=== PATIENT | male | born 1955 | race Caucasian/White ===

== ENCOUNTER 2017-07-15 14:30 | Inpatient (IN) | payer BC, MEDICAID, SELFPAY ==
[2017-07-15] VITALS (12 sets, daily range): BP systolic 128–152; BP diastolic 91–118
[~2017-07-15] VITALS: Ht 177.8 cm; Wt 80.9 kg
[2017-07-15] MEDS ORDERED: DOXY100C PO (14:40)
[2017-07-15] MEDS ORDERED: methylPREDNISolone INJ 125 MG/2 ML VIAL (J2930) IV ONE (15:00)
[2017-07-15] MEDS ORDERED: IPRATROPIUM 0.5MG/ALBUTEROL 2.5MG INH SOL UD 3ML (DUONEB)(J7620) NEB ONE (15:00)
[2017-07-15] MEDS ORDERED: NS 500 ML IV ONE (15:00)
[2017-07-15] MEDS ORDERED: ALBUTEROL SULFATE 2.5 MG/0.5 ML INH NEB SOLN INH ONE (15:00)
[2017-07-15 15:07] LABS: BASO % 0.2 % (0.0-1.0); EOS % 0.1 % (0.0-3.0); IMMATURE GRANULOCYTE % 0.4 % (0-0); LYMPH # 2.3 10^3/uL (1.5-4.5); LYMPH % 15.6 % (24.0-44.0); MEAN CORPUSCULAR HEMOGLOBIN 27.5 pg (27.0-33.0); MEAN CORPUSCULAR HGB CONC 31.7 g/dl (32.0-36.5); MEAN CORPUSCULAR VOLUME 86.8 fl (80.0-96.0); MONO % 7.1 % (0.0-5.0); NEUTROPHILS # 11.3 10^3/uL (1.8-7.7); NEUTROPHILS % 76.6 % (36.0-66.0); PLATELET COUNT, AUTOMATED 224 10^3/uL (150-450); RED CELL DISTRIBUTION WIDTH 19.7 % (11.5-14.5); WHITE BLOOD COUNT 14.7 10^3/uL (4.0-10.0)
[2017-07-15 15:31] LABS: ALBUMIN 3.3 GM/DL (3.2-5.2); ALBUMIN/GLOBULIN RATIO 0.89 (1.00-1.93); BILIRUBIN,DIRECT 1.3 MG/DL (0.0-0.2); BILIRUBIN,TOTAL 3.3 MG/DL (0.2-1.0); CALCIUM LEVEL 9.5 MG/DL (8.8-10.2); CREATININE FOR GFR 1.9 MG/DL (0.70-1.30); GLOMERULAR FILTRATION RATE 38.3 (>49); THYROXINE (T4) 6.1 UG/DL (4.5-12.0)
[2017-07-15 15:58] LABS: ABG BASE EXCESS -3.7 (-2.0-2.0); ABG HCO3 18.3 MEQ/L (22.0-26.0); ABG PARTIAL PRESSURE CO2 26.9 mmHg (35.0-45.0); ABG PARTIAL PRESSURE O2 85.4 mmHg (75.0-100.0); ABG STANDARD HCO3 21.5 MEQ/L (22.0-26.0); ABG TOTAL CO2 19.1 MEQ/L (23.0-31.0); ABG pH (ARTERIAL) 7.451 UNITS (7.350-7.450)
[2017-07-15] MEDS ORDERED: FUROSEMIDE 40 MG/4 ML VIAL (J1940) IV ONE ×2 (16:00→20:30)
[2017-07-15 16:02] LABS: POTASSIUM SERUM 5.2 MEQ/L (3.5-5.1)
[2017-07-15] MEDS ORDERED: ASPIRIN 81 MG CHEW TABLET PO ONE (16:15)
[2017-07-15] MEDS ORDERED: BISACODYL 5 MG TAB PO PRN (17:00)
[2017-07-15] MEDS ORDERED: ONDANSETRON 4MG/2ML VIAL (J2405) IV PRN (17:00)
[2017-07-15] MEDS ORDERED: ALBUTEROL SULFATE 2.5 MG/0.5 ML INH NEB SOLN NEB PRN (17:30)
[2017-07-15 17:32] LABS: INR 1.48
[2017-07-15] MEDS ORDERED: DIGOXIN INJ 0.5 MG/2 ML AMP (J1160) IV ONE ×2 (18:00→21:00)
--- NOTE | 2017-07-15 19:10 | REPUSA ---
CLINICAL HISTORY: Acute kidney injury. Family with history of polycystic kidney disease. Right upp er quadrant pain. Abnormal LFTs. TECHNIQUE: Realtime sonographic images were obtained in multiple projections. COMMENTS: The liver is mildly coarse without evidence of mass or defect. There is no intra or extrahepatic layla iary ductal dilatation. The common bile duct measures 3.8 mm. The gallbladder is physiologically di stended without evidence of calculi. The gallbladder wall is not thickened measures 1.6 mm and there is no pericholecystic fluid. There is no abdominal ascites. The abdominal aorta is not visualized. There was limited visualization of the pancreas due to bowel gas and patient body habitus. The splee n is of uniform echo texture and does not appear enlarged measures 9.6 cm. The right kidney measures 10.2 x 4.7 x 4.6 cm and the left kidney measures 10.8 x 4.7 x 5.7 cm. Both kidneys are free of hydr onephrosis. Bilateral renal echogenic linear foci, questionable calcified vessels. There is left pleural effusion seen. IMPRESSION: 1. The liver is mildly coarse, please exclude hepatocellular disease clinically. 2. Bilateral renal echogenic linear foci, questionable calcified vessels. 3. There is left pleural effusion seen.
[2017-07-15 19:33] LABS: MAGNESIUM LEVEL 2.3 MG/DL (1.8-2.4)
[2017-07-15] MEDS: SENOKOT S TAB PO SCH (20:08)
[2017-07-15] MEDS ORDERED: METOPROLOL 5 MG/5 ML VIAL IV SCH (20:30)
[2017-07-15] MEDS: METOPROLOL 5 MG/5 ML VIAL IV SCH ×3 (20:39→21:03)
[2017-07-15] MEDS: IPRATROPIUM 0.5MG/ALBUTEROL 2.5MG INH SOL UD 3ML (DUONEB)(J7620) NEB SCH (21:52)
[2017-07-15] MEDS ORDERED: diltiaZEM 125 MG in NS 100 ML IV SCH (23:00)
[2017-07-15] MEDS: FUROSEMIDE 40 MG/4 ML VIAL (J1940) IV SCH (23:25)
[2017-07-15] MEDS: DIGOXIN INJ 0.5 MG/2 ML AMP (J1160) IV SCH (23:26)
[2017-07-16] VITALS (26 sets, daily range): BP systolic 104–142; BP diastolic 56–93
[2017-07-16] MEDS ORDERED: FUROSEMIDE 20 MG/2 ML VIAL (J1940) IV ONE (02:00)
[2017-07-16] MEDS ORDERED: IPRATROPIUM 0.5MG/ALBUTEROL 2.5MG INH SOL UD 3ML (DUONEB)(J7620) NEB ONE (02:00)
[2017-07-16] MEDS: DIGOXIN INJ 0.5 MG/2 ML AMP (J1160) IV SCH (05:32)
[2017-07-16 06:31] LABS: BASO % 0.1 % (0.0-1.0); IMMATURE GRANULOCYTE % 0.5 % (0-0); LYMPH % 5.8 % (24.0-44.0); MEAN CORPUSCULAR HEMOGLOBIN 28.1 pg (27.0-33.0); MEAN CORPUSCULAR HGB CONC 33.8 g/dl (32.0-36.5); MONO # 1.1 10^3/uL (0.0-0.8); MONO % 6.2 % (0.0-5.0); NEUTROPHILS # 15.2 10^3/uL (1.8-7.7); NEUTROPHILS % 87.4 % (36.0-66.0); PLATELET COUNT, AUTOMATED 193 10^3/uL (150-450); WHITE BLOOD COUNT 17.3 10^3/uL (4.0-10.0)
--- NOTE | 2017-07-16 06:33 | ECGEPIP ---
Stationary ECG Study [facility] - ED Test Date: 2017-07-15 Pat Name: JOHN HERNANDEZ Department: Room: - Gender: M [employer] Dean: isaac : 1955 Requested By: Jarrod Cuenca Order Number: [id number] Reading MD: Jarrod Cuenca Measurements Intervals [place] Rate: 136 P: NM: 0 QRS: 88 QRSD: 97 T: 0 QT: 285 QTc: 430 Interpretive Statements ATRIAL FLUTTER/TACHYCARDIA WITH RAPID VENTRICULAR RESPONSE POSSIBLE ANTERIOR MYOCARDIAL INFARCTION, PROBABLY OLD ABNORMAL RHYTHM ECG CLINICALLY CORRELATE 11/28/13 RATE INCREASED POSSIBLE RHYTHM CHANGE Electronically Signed On 07-16-2017 6:32:59 EST by Jarrod Cuenca
[2017-07-16 06:45] LABS: ABG BASE EXCESS 9.3 (-2.0-2.0); ABG HCO3 31.9 MEQ/L (22.0-26.0); ABG PARTIAL PRESSURE CO2 36.6 mmHg (35.0-45.0); ABG PARTIAL PRESSURE O2 58.8 mmHg (75.0-100.0); ABG STANDARD HCO3 32.8 MEQ/L (22.0-26.0); ABG pH (ARTERIAL) 7.558 UNITS (7.350-7.450)
[2017-07-16 07:15] LABS: ALBUMIN 2.9 GM/DL (3.2-5.2); ALBUMIN/GLOBULIN RATIO 0.85 (1.00-1.93); BILIRUBIN,TOTAL 3.5 MG/DL (0.2-1.0); CALCIUM LEVEL 9.4 MG/DL (8.8-10.2); CREATININE FOR GFR 1.63 MG/DL (0.70-1.30); DIGOXIN LEVEL 2.2 NG/ML (0.5-2.0); GLOMERULAR FILTRATION RATE 45.7 (>49); TOTAL PROTEIN 6.3 GM/DL (6.4-8.2)
[2017-07-16] MEDS: IPRATROPIUM 0.5MG/ALBUTEROL 2.5MG INH SOL UD 3ML (DUONEB)(J7620) NEB SCH ×2 (07:29→15:18)
[2017-07-16 07:51] LABS: POTASSIUM SERUM 3.8 MEQ/L (3.5-5.1)
[2017-07-16] MEDS: ENOXAPARIN 30 MG/0.3 ML SYR (J1650) SC SCH (08:04)
[2017-07-16] MEDS: SENOKOT S TAB PO SCH ×2 (08:04→20:39)
[2017-07-16] MEDS: FUROSEMIDE 40 MG/4 ML VIAL (J1940) IV SCH ×3 (08:04→23:12)
--- NOTE | 2017-07-16 08:44 | IPNPDOC ---
Text Note Date of Service The patient was seen on 07/16/17. NOTE Subjective: Patient seen and examined at bedside. States he is feeling much better. Questioned further about yesterday's events, he states he blacked out at around 3pm while at an [employer] machine. Woke up to find himself on the floor. States this has not happened before, and denied any prodromal symptoms. States he did not eat breakfast or lunch that day. Also states he was recently seen at an urgent care facility, and diagnosed with pneumonia, treated with oral antibiotics. Currently denies any new medical complaints. Objective: General: NAD, lying comfortably in bed, somewhat disheveled HEENT: NC/AT, EOMI Lungs: mild coarse breath sounds bilaterally R>L Heart: +S1S2, irregularly irregular Abd: soft, NT, +BS Ext: trace edema Neuro: no gross focal deficits Psych: AAOx3 A/P: 62 yo male for syncopal episode, found to be in respiratory distress with atrial tachy rhythm. Please note H&P not available at this time limiting assessment and plan. 1. acute hypoxic respiratory failure - likely secondary to CHF - continue IV diuresis - echocardiogram pending - daily weights, I/O's 2. Afib/flutter - digoxin - BB if needed - echo pending - currently is rate controlled - d/w cardiology - assistance appreciated - telemetry monitoring - [id number] appears to be 1 for CHF, will check A1C 3. MARTINA - likely secondary to decompensated CHF - improving with diuresis 4. Transaminitis - improving with diuresis - likely hepatic congestion 5. Syncope - telemetry monitoring, echocardiogram - check orthostatics 6. DVT prophylaxis - lovenox for now VS,Fishbone, I+O VS, Fishbone, I+O Laboratory Tests 07/15/17 14:55 Red Blood Count 6.51 H, Mean Corpuscular Volume 86.8, Mean Corpuscular Hemoglobin 27.5, Mean Corpuscular Hemoglobin Concent 31.7 L, Red Cell Distribution Width 19.7 H, Neutrophils (%) (Auto) 76.6 H, Lymphocytes (%) (Auto ) 15.6 L, Monocytes (%) (Auto) 7.1 H, Eosinophils (%) (Auto) 0.1, Basophils (%) (Auto) 0.2, Neutrophils # (Auto) 11.3 H, Lymphocytes # (Auto) 2.3, Monocytes # ( Auto) 1.0 H, Eosinophils # (Auto) 0.0, Basophils # (Auto) 0.0 07/16/17 05:15 Red Blood Count 6.34 H, Mean Corpuscular Volume 83.0, Mean Corpuscular Hemoglobin 28.1, Mean Corpuscular Hemoglobin Concent 33.8, Red Cell Distribution Width 19.0 H, Neutrophils (%) (Auto) 87.4 H, Lymphocytes (%) (Auto ) 5.8 L, Monocytes (%) (Auto) 6.2 H, Eosinophils (%) (Auto) 0.0, Basophils (%) ( Auto) 0.1, Neutrophils # (Auto) 15.2 H, Lymphocytes # (Auto) 1.0 L, Monocytes # (Auto) 1.1 H, Eosinophils # (Auto) 0.0, Basophils # (Auto) 0.0, Calcium Level 9.4, Aspartate Amino Transf (AST/SGOT) 91 H, Alanine Aminotransferase (ALT/SGPT ) 130 H, Total Creatine Kinase 412 H, Alkaline Phosphatase 127 H, Total Bilirubin 3.5 H, Total Protein 6.3 L, Albumin 2.9 L Vital Signs Date Time Temp Pulse Resp B/P (MAP) Pulse Ox O2 Delivery O2 Flow Rate FiO2 07/16/17 08:00 96.8 102 24 134/66 (88) 92 Nasal Cannula 8.0 I&O- Last 24 Hours up to 6 AM 07/17/17 06:00 Intake Total 240 ml Output Total 750 ml Balance -510 ml YOEL WOLFE MD Jul 16, 2017 08:44
[2017-07-16] MEDS ORDERED: DIGOXIN INJ 0.5 MG/2 ML AMP (J1160) IV STA ×2 (20:42→22:22)
[2017-07-16] MEDS ORDERED: VANCOMYCIN HCL 1,000 MG, VIAL MATE ADAPTER 1 EACH in D5W 250 ML IV SCH (21:00)
[2017-07-16] MEDS ORDERED: PIPERACILLIN/TAZOBACTAM SOD 3.375 GM in D5W 50 ML IV ONE (21:00)
[2017-07-16] MEDS ORDERED: AZITHROMYCIN 250 MG TAB PO ONE (21:00)
[2017-07-16] MEDS ORDERED: FUROSEMIDE 40 MG/4 ML VIAL (J1940) IV ONE (21:15)
[2017-07-16 21:29] LABS: ABG BASE EXCESS 14.8 (-2.0-2.0); ABG HCO3 38.6 MEQ/L (22.0-26.0); ABG PARTIAL PRESSURE CO2 42.2 mmHg (35.0-45.0); ABG PARTIAL PRESSURE O2 55.6 mmHg (75.0-100.0); ABG STANDARD HCO3 38.6 MEQ/L (22.0-26.0); ABG TOTAL CO2 39.9 MEQ/L (23.0-31.0); ABG pH (ARTERIAL) 7.579 UNITS (7.350-7.450)
[2017-07-16] MEDS ORDERED: METOPROLOL 5 MG/5 ML VIAL As Ordered ONE (21:49)
[2017-07-16] MEDS ORDERED: METOPROLOL 5 MG/5 ML VIAL IV STA (22:05)
[2017-07-16] MEDS ORDERED: FUROSEMIDE 100 MG/10 ML VIAL (J1940) IV ONE (22:30)
[2017-07-16 22:34] LABS: MEAN CORPUSCULAR HEMOGLOBIN 27.6 pg (27.0-33.0); MEAN CORPUSCULAR HGB CONC 32.8 g/dl (32.0-36.5); MEAN CORPUSCULAR VOLUME 84.2 fl (80.0-96.0); PLATELET COUNT, AUTOMATED 191 10^3/uL (150-450); WHITE BLOOD COUNT 19.1 10^3/uL (4.0-10.0)
[2017-07-16] MEDS ORDERED: ASPIRIN 325 MG TAB PO ONE (23:00)
[2017-07-16 23:11] LABS: ALBUMIN 2.7 GM/DL (3.2-5.2); ALBUMIN/GLOBULIN RATIO 0.84 (1.00-1.93); BILIRUBIN,DIRECT 1.1 MG/DL (0.0-0.2); BILIRUBIN,TOTAL 2.5 MG/DL (0.2-1.0); CALCIUM LEVEL 8.7 MG/DL (8.8-10.2); CREATININE FOR GFR 1.8 MG/DL (0.70-1.30); GLOMERULAR FILTRATION RATE 40.8 (>49); PHOSPHORUS LEVEL 3.6 MG/DL (2.5-4.9); POTASSIUM SERUM 3.2 MEQ/L (3.5-5.1); TOTAL PROTEIN 5.9 GM/DL (6.4-8.2)
[2017-07-17] VITALS (15 sets, daily range): BP systolic 98–127; BP diastolic 54–77
[2017-07-17] MEDS: IPRATROPIUM 0.5MG/ALBUTEROL 2.5MG INH SOL UD 3ML (DUONEB)(J7620) NEB SCH ×4 (00:14→19:15)
[2017-07-17] MEDS ORDERED: PIPERACILLIN/TAZOBACTAM SOD 2.25 GM in D5W 50 ML IV SCH (03:00)
[2017-07-17] MEDS ORDERED: POTASSIUM CHLORIDE 10 MEQ SR TABLET PO ONE (04:30)
[2017-07-17 04:38] LABS: BASO % 0.1 % (0.0-1.0); EOS % 0.1 % (0.0-3.0); IMMATURE GRANULOCYTE % 0.4 % (0-0); LYMPH # 2.1 10^3/uL (1.5-4.5); LYMPH % 13.2 % (24.0-44.0); MEAN CORPUSCULAR HEMOGLOBIN 27.7 pg (27.0-33.0); MEAN CORPUSCULAR HGB CONC 33.2 g/dl (32.0-36.5); MEAN CORPUSCULAR VOLUME 83.4 fl (80.0-96.0); MONO # 1.2 10^3/uL (0.0-0.8); MONO % 7.4 % (0.0-5.0); NEUTROPHILS # 12.6 10^3/uL (1.8-7.7); NEUTROPHILS % 78.8 % (36.0-66.0); PLATELET COUNT, AUTOMATED 195 10^3/uL (150-450); RED CELL DISTRIBUTION WIDTH 18.4 % (11.5-14.5)
[2017-07-17 04:57] LABS: ALBUMIN 2.7 GM/DL (3.2-5.2); ALBUMIN/GLOBULIN RATIO 0.75 (1.00-1.93); BILIRUBIN,TOTAL 2.2 MG/DL (0.2-1.0); CALCIUM LEVEL 8.8 MG/DL (8.8-10.2); CREATININE FOR GFR 1.45 MG/DL (0.70-1.30); GLOMERULAR FILTRATION RATE 52.3 (>49); MAGNESIUM LEVEL 1.9 MG/DL (1.8-2.4); POTASSIUM SERUM 3.2 MEQ/L (3.5-5.1); TOTAL PROTEIN 6.3 GM/DL (6.4-8.2)
--- NOTE | 2017-07-17 06:12 | REP ---
AP PORTABLE CHEST: 11/12/2016. Clinical history: Dyspnea, cough. Comparison: Chest x-ray 07/06/2017, portable chest 11/28/2013. Findings: AP portable chest shows much worsened vascular congestion and now with fairly extensive basilar infiltrates or alveolar edema. There are bilateral effusions left greater than right. Cardiac silhouette enlarged. Vascular redistribution. The aorta is mildly tortuous. Airway intact. Impression: 1. Cardiomegaly with vascular redistribution consistent with interstitial edema but with worsening basilar infiltrates or alveolar edema with bilateral effusions, left greater than right. Signed by Sergio Edwards MD 07/16/2017 06:31 P
--- NOTE | 2017-07-17 06:13 | REP ---
AP PORTABLE CHEST: 07/16/2017. Comparison: Portable chest 07/15/2017, two view chest 07/06/2017. Clinical history: Dyspnea. Findings: Bibasilar infiltrates and bilateral effusions left greater than right, similar on the right, worse on the left than yesterday. There is vascular redistribution. Cardiac silhouette obscured but likely enlarged. The aorta is intact. Impression: 1. Worsening bilateral infiltrates and effusion, worse on the left than yesterday. Some vascular redistribution and suspected edema. Signed by Sergio Edwards MD 07/16/2017 07:04 P
--- NOTE | 2017-07-17 06:13 | REP ---
CT CHEST WITHOUT CONTRAST: 07/16/2017. Clinical history: Head trauma. Comparison: Portable chest 07/16/2017, 07/15/2017, two-view chest 07/05/2017. Findings. Noncontrast exam performed in this patient with limited renal function. Coronal and sagittal reconstructions performed. There are bilateral pleural effusions, moderate on the left, slightly larger on the left than right side. There are consolidated areas of the right lower lobe with compressive atelectasis or infiltrate and somewhat larger in the left lower lobe. There are areas of patchy atelectasis or infiltrate in the anterior segment right upper lobe and peripheral nodule or nodular infiltrate posterior axillary line in the right upper lobe on image 17 to 24. There are also compressive atelectatic changes in the left upper lobe. Underlying fibrosis, COPD and emphysematous changes are noted. Heart is enlarged with left atrial and ventricular enlargement. I see no pericardial thickening or effusion. The aorta has calcifications but no aneurysm. There is a 10 mm node in the precarinal region. The prevascular region, AP window, right paratracheal and hilar regions show subcentimeter nodes. There is no axillary or supraclavicular mass or adenopathy. Bone windows show the sternum, manubrium, clavicles, glenohumeral joints, the right AC joint and scapula, that portion of the left scapula visible and ribs without fracture or focal lesion. Thoracic kyphosis with mild old wedging mid thoracic spine without acute compression fracture. Marginal osteophytes throughout. Posterior elements intact. The upper abdomen shows no splenomegaly or focal splenic lesion. Liver is not enlarged although it is incompletely visualized. Only a portion of the pancreas is included. Gallbladder is excluded from field of view. Adrenal glands show thickening of limbs suggesting some adrenal hyperplasia. Upper poles of kidneys intact. No hiatal hernia. Impression: 1. Cardiomegaly with moderate bilateral effusions, left larger than right. These reach the apex on both sides. There is some compressive or consolidative atelectasis or infiltrates in the bilateral lower lobes and patchy infiltrates or atelectasis in the upper lobes, right middle lobes and adjacent to the consolidated lower lobes. One area of nodular infiltrate right upper lobe peripherally should be followed. 2. No aortic aneurysm or mediastinal adenopathy of pathologic size. 3. Minor old wedging of mid thoracic vertebral bodies, mild with thoracic kyphosis. No compression deformity or acute bony finding. 4. Upper abdomen without acute finding. Signed by Sergio Edwards MD 07/16/2017 07:04 P
--- NOTE | 2017-07-17 06:13 | REP ---
CT BRAIN WITHOUT CONTRAST: 07/16/2017. Clinical history: Head trauma. Comparison: 11/28/2013. Findings: Soft tissue and bone windows were reviewed for each slice level. Lateral ventricles are midline, symmetric and proportionate to the mild cerebral atrophy. This is unchanged. The third and fourth ventricles are unremarkable. Basal ganglia were symmetric. I see no significant white matter change. Cortical stripe shows mild atrophy but no vascular territory infarct, hemorrhage, mass or mass effect. No extra-axial fluid collections noted. Brainstem intact. Cerebellum shows mild atrophy. There is a gareth cisterna magna in the posterior fossa as an anatomic normal variant. Mastoids are intact. Visualized sinuses show some minimal mucosal thickening in the right and left maxillary antra. The skull base and calvarium are intact. There are some vascular calcifications in the carotid siphons. Impression: 1. Some mild atrophy without evidence of acute infarct, hemorrhage, mass, mass effect or edema. Appearance stable since the 2013 exam. 2. Minor maxillary sinus mucosal thickening with the mastoids, skull base and calvarium without acute findings. Signed by Sergio Edwards MD 07/16/2017 07:04 P
--- NOTE | 2017-07-17 06:24 | HPE ---
DATE OF ADMISSION: 07/15/2017 PRIMARY CARE PROVIDER: Does not have any. CHIEF COMPLAINT: Increasing shortness of breath, worse over the past three weeks. PAST MEDICAL HISTORY: None. HISTORY OF PRESENT ILLNESS: This is a 62-year-old male with no regular medical followup, has been having exertional dyspnea ongoing for at least six months to eight months, which has been at its worst over the past three weeks. About 10 days ago, he went to urgent care as he could hardly walk a few blocks, when normally he used to walk about two hours per day last year, and he could not talk in full sentences, and at that time he was diagnosed with bronchitis and given a prescription for doxycycline. However, chest x-ray done in the urgent care did show features of pulmonary edema and pleural effusion suggestive of congestive heart failure. He comes to the emergency room because in spite of taking the antibiotics, he is not feeling any better; in fact, his breathing has gotten worse. In the emergency department (ED), on initial arrival he was hypoxic to 87% on room air. He was tachycardic to 136 which is a narrow-complex tachycardia. He was unable to speak in full sentences. He was extremely short of breath. He had a chest x-ray done which shows bilateral pleural effusions and interstitial edema. The patient was diagnosed with congestive heart failure. The patient had lab work done which showed acute kidney injury with creatinine elevated to 1.9. Abnormal liver function tests (LFTs), elevated lactic acid to 7.5, and a pro-BNP level of greater than 10,000. The patient was then admitted to the hospitalist service for congestive heart failure. PAST SURGICAL HISTORY: Appendectomy many years ago. HOME MEDICATIONS: Doxycycline. ALLERGIES: No known drug allergies. SOCIAL HISTORY: The patient is a smoker. Last cigarette was three weeks ago. Drinks socially, maybe 2-3 times a month, not more than 2-3 beers at a time. Does not abuse any recreational drugs. FAMILY HISTORY: Positive for polycystic kidney disease on the maternal side. His younger brother is on dialysis from polycystic kidney disease. REVIEW OF SYSTEMS: The patient complained of increasing cough with whitish phlegm production, worse over the past three weeks, increasing shortness of breath. Did not complain of any chest pain or any palpitations. Denied any abdominal pain, any nausea, vomiting or diarrhea. Denied any leg swelling. Denied any fever or chills. PHYSICAL EXAMINATION: VITAL SIGNS: Pulse 136, temperature 96.4, blood pressure 146/118. Pulse oximetry 93% with four liters nasal cannula. GENERAL: Patient awake, alert, oriented times three sitting up in bed in moderate distress, having pursed lip breathing. However, able to talk in full sentences at present. HEENT: Normocephalic, atraumatic. Moist mucous membranes. Anicteric eyes. CHEST: Overall poor air entry, bilateral diffuse wheezing, decreased breath sounds at the bases. CARDIOVASCULAR: S1, S2. Tachycardia. No rub, murmur or gallop. ABDOMEN: Distended, soft, nontender. Bowel sounds present. EXTREMITIES: No edema. BACK: There is 2+ sacral edema. LABORATORY DATA: WBC 14.7, hemoglobin 17.9, platelets 224. Sodium 141, potassium 5.2, chloride 103, bicarbonate 26, BUN 48, creatinine 1.9, glucose 111, lactic acid 7.5. Total bilirubin 3.3, direct bilirubin 1.3, AST 130, ALT 172, alkaline phosphatase 143, ammonia 150. CPK 449, CPK-MB 17.5, troponin 0.21. Pro BNP 10,636. Albumin 3.3. TSH 5.41, T4 6.1. INR 1.48. Blood gas: PH 7.45, pCO2 26, pO2 85 with nasal cannula oxygen. MICROBIOLOGY: Blood cultures have been ordered. Sputum cultures have been ordered. Influenza antigen is negative. IMAGING: Chest x-ray suggestive of congestive heart failure. ASSESSMENT AND PLAN: This is a 62-year-old male admitted for congestive heart failure. PLAN: 1. Acute congestive heart failure. We will start the patient on Lasix 40 intravenous (IV) every eight. We will get an echocardiogram. Two-gram sodium diet, and fluid restriction 1.5 liters. 2. Acute renal failure, most probably related to cardiorenal syndrome from congestive heart failure. However, the patient has a family history of polycystic kidney disease so we will get bilateral renal ultrasound to evaluate kidneys for any cystic kidney disease. 3. Transaminitis. Most probably to congestive hepatopathy from congestive heart failure (CHF). However, we will send hepatitis workup. The patient also has very high ammonia level. However, the patient is alert and oriented times three, and does not have any signs of encephalopathy, so we will not treat for elevated ammonia at this point. 4. Tobacco dependence. The patient has a long-term history of smoking, so patient may also have underlying chronic obstructive pulmonary disease (COPD). At present, we will place the patient on DuoNeb and albuterol as needed. Deep venous thrombosis (DVT) prophylaxis has been ordered. 5. Leukocytosis. Blood cultures have been sent and sputum cultures have been sent. Most probably it is reactive. 6. Hypoxia due to congestive heart failure. We will continue with oxygen supplementation. 7. Lactic acidosis. Could be due to hypoxia and excessive work of breathing. Will continue to monitor. 8. Tachycardia. This is a narrow-complex regular tachycardia. It looks like atrial flutter or one of the atrial tachycardias. Will give one dose of digoxin 0.5 IV to see if that causes slowing of the rate. Will consult cardiology if continues to be tachycardic. 9. Elevated troponins. This is most probably because of congestive heart failure and acute kidney injury. We will continue to monitor.
--- NOTE | 2017-07-17 06:24 | CCN ---
DATE OF SERVICE: 07/16/2017 Critical care time was 1 hour and 17 minutes. This excludes all procedures. I was called urgently by Dr. Nicol Andrade for this patient who was progressively more hypoxic and having hypoxia on 15 liters of high-flow nasal cannula. Initially, the patient was admitted on 07/15 with a hypoxia of 87% on room air recovered with 4 liters. He has been progressively more hypoxic as his hospitalization progressed. As part of his workup they performed a chest CT at 6:21 p.m. This showed bilateral pleural effusions with dependent edema and emphysema with a few nonspecific nodules. The patient himself is not aware that he has had emphysema or that he has a diagnosis of emphysema. He has no prior history of heart disease. He states he is actually breathing better than he did a few days ago. He is in atrial fibrillation with rapid ventricular response (RVR). Heart rate was 140 on arrival to the intensive care unit (ICU). At bedside, I pushed slow metoprolol about 1 mg per minute. After of 5 mg, heart rate went down to 101 and blood pressure went from 113 systolic to 130 systolic. EKG obtained on his arrival showed atrial fibrillation with RVR. Appears that there is some ST depression that is new in the lateral lead likely from LV strain pattern. There continues to be an incomplete bundle branch block. The patient denies chest pain. I have placed him on continuous positive airway pressure (CPAP) because of the severity of his pulmonary edema on imaging and atrial fibrillation with RVR with hypoxia. Hypoxia improved with CPAP. Currently, the patient is saturating in the high 90s on CPAP at 10 with FiO2 of 70%. Temperature is 97.5, blood pressure currently is 139/64, heart rate is 107, respiratory rate is 18, oxygen saturation is 97% on 0.70 FiO2. General: Awake, alert, oriented. Affect and mood are appropriate. Nutrition and hygiene are good. Oral and nasal mucosa are pink and moist without lesions. Oropharynx without erythema or exudate, few missing teeth. No lana abscess. Tongue is midline. Neck: Supple. No tracheal deviation or mass. Jugular veins are distended to the level of the ear in the 45-degree position. Neck without thyromegaly. Cardiac: Distant heart sounds. I do not auscultate any murmur, rub or gallop. The heart sounds are irregular and tachycardiac. Point of maximal impulse (PMI) is displaced laterally. Breath sounds are decreased throughout with a prolonged expiratory phase. No wheeze. No rhonchi. No rales. Abdomen: Soft, nontender, nondistended. No hepatosplenomegaly. No masses or hernia. Extremities: No cyanosis, clubbing or edema surprisingly. No calf pain. Negative Homans' sign. CT was done without contrast. EKG as mentioned above shows atrial fibrillation with RVR, LVH. QRS is [address] depression in lateral leads which is new. White count is up to 19.1, hemoglobin of 17.1 with a hematocrit of 52.2, platelet count of 193, 87% neutrophilia. Sodium is 141, potassium 3.8, chloride 97, bicarbonate of 34, BUN of 49, creatinine of 1.49, total bilirubin was elevated at 3.5. AST was elevated at 91, ALT 130, alkaline phosphatase elevated at 127. Troponin mildly elevated at 0.15. BNP was 10,636. Arterial blood gas shows a pH of 7.58, pCO2 of 42, pAO2 of 55.6. Blood cultures no growth times two. Sputum culture is pending. Appears to be polymicrobial likely from oropharyngeal contamination. IMPRESSION: 1. Acute hypoxic respiratory failure with bilateral pleural effusions. 2. Pulmonary edema likely secondary to worsening atrial fibrillation with rapid ventricular response (RVR) and worsening dysfunction. Patient is doing better on continuous positive airway pressure (CPAP) to offload LV. 3. Atrial fibrillation with RVR better controlled after metoprolol. I discussed his case briefly with Dr. Steven, who has not directly seen the patient in consultation and suggested additional digoxin as he is digoxin naive and therefore I have given this. 4. Abnormal EKG likely from LV strain. Will rule out acute coronary syndrome. Currently the patient has no chest pain. I have added aspirin to his regimen. 5. Hemoconcentration likely from chronic hypoxia. I have again placed the patient on aspirin. Will monitor for thrombotic events. 6. Leukocytosis likely from stress of respiratory failure. No evidence of infection at this point in time. 7. Metabolic alkalosis secondary to likely diuresis. Will continue to monitor. 8. Renal failure. Will continue to monitor. The patient has good urine output at this point in time and is volume overloaded. Will avoid nephrotoxic agents. 9. Elevated liver enzymes likely from congestive hepatopathy. 10. Emphysema. I have added Spiriva and Advair to his inhaled regimen. He does not have any evidence of bronchospasm on exam. He has had no increased cough. No mucus production. No sign, symptoms of exacerbation or bronchitis. This is a new diagnosis to him. He is not aware that he has a history of emphysema. I do not know his spirometry as he has not been followed by physicians. This can be worked up as an outpatient. 11. Pulmonary nodule. Needs to be followed as an outpatient. 12. History of nicotine dependence. The patient quit 2 weeks ago and he was congratulated on his efforts towards smoking cessation. Continued smoking cessation recommended. The patient remains critically ill, has a risk of intubation. He has severe critical illness due to his acute hypoxic respiratory failure with progressive increasing oxygen requirements, unstable arrhythmias, and congestive heart failure. He will require close monitoring in the intensive care unit (ICU).
[2017-07-17] MEDS: ISOSORBIDE DIN (ISORDIL) 10 MG TAB PO SCH ×3 (07:00→16:59)
[2017-07-17] MEDS: **hydrALAZINE** 10 MG TAB PO SCH ×3 (07:00→16:58)
--- NOTE | 2017-07-17 07:39 | REP ---
Clinical: Pulmonary edema. Comparison: 07/16/2017. Findings: Mediastinum and cardiac silhouette are stable with mild cardiomegaly again appreciated. Interstitial edema and bibasilar opacities/effusions (left greater than right) are again identified and mildly/moderately improved when compared to prior examination. No pneumothorax. Skeletal structures stable. Impression: Interstitial edema with bibasilar opacities and pleural effusions appears improved compared to prior examination. No obvious new process identified. Signed by James Murillo MD 07/17/2017 07:31 A
[2017-07-17] MEDS: SENOKOT S TAB PO SCH ×2 (08:44→20:59)
[2017-07-17] MEDS: POTASSIUM CHLORIDE 10 MEQ SR TABLET PO SCH ×4 (08:44→20:58)
[2017-07-17] MEDS: ENOXAPARIN 30 MG/0.3 ML SYR (J1650) SC SCH (08:45)
[2017-07-17] MEDS: SPIRONOLACTONE 12.5MG PER 1/2 TABLET PO SCH (08:45)
[2017-07-17] MEDS: ASPIRIN 81 MG ENTERIC TAB PO SCH (08:45)
[2017-07-17] MEDS ORDERED: **hydrALAZINE** 10 MG TAB PO SCH (09:00)
[2017-07-17] MEDS ORDERED: DIGOXIN 0.125 MG TAB PO SCH (09:00)
[2017-07-17] MEDS ORDERED: ASPIRIN 325 MG TAB PO SCH (09:00)
--- NOTE | 2017-07-17 10:24 | CCN ---
DATE: 07/17/2017 Mr. Parker is doing much better today. He denies any current shortness of breath or chest pain. He has had a total of about 9 liters diuresed. He had been on C-PAP for ventricular offloading, but is now off of the C-PAP. He reports doing well.The patient denies any fevers or chills. Denies any abdominal pain. PHYSICAL EXAMINATION: VITALS: Temperature 96.7, pulse 87, respiratory rate 16, blood pressure is 127/71, pulse ox 96%. GENERAL: The patient is alert and oriented times three. No acute distress. NECK: Supple. No tracheal deviation. No obvious jugular venous distention (JVD). CHEST: With diminished breath sounds and a prolonged expiratory phase. No wheezes, rhonchi or rales. HEART: Distant heart sounds, irregular. ABDOMEN: Positive bowel sounds, soft, nontender. No rebound or guarding. EXTREMITIES: No clubbing, cyanosis or edema. LABORATORIES: WBC 16.0, hemoglobin 17.5, hematocrit 52.7, platelets 195. Sodium 140, potassium 3.2, chloride is 96, carbon dioxide is 38, BUN 44, creatinine 1.45, glucose 105, calcium 8.8, magnesium 1.9, total bili 2.2, AST 73 , ALT 107, alk phos 123. Troponin I 0.15, total protein 6.3, albumin 2.7, triglycerides 81, cholesterol 113, LDL 68.8, HDL 28. ASSESSMENT/PLAN: 1. Acute hypoxic respiratory failure with bilateral pleural effusions. Improving with oxygen offloading with C-PAP and diuresis. Cardiology is also following the patient. 2. Pulmonary edema. Likely is secondary to atrial fibrillation with rapid ventricular response (RVR). Patient improved with oxygen offloading with C-PAP and diuresis. 3. Atrial fibrillation with RVR. Patient was initially given metoprolol. He is now on digoxin. Dr. Steven from cardiology is also following the patient and addressing the atrial fibrillation. 4. Hemoconcentration. Likely secondary to respiratory failure. 5. Renal failure, improving with creatinine decreasing today. Continue to monitor closely. 6. Elevated liver enzymes. Likely from congestive heart failure. 7. Emphysema. Spiriva and Advair were added. Patient is also on DuoNebs. Patient had recently been a smoker who quit about 2 weeks ago. 8. Pulmonary nodule. This will need to be followed as an outpatient. 9. History of nicotine dependence. The patient quit smoking 2 weeks ago. Continued smoking cessation advised. 10. Hypokalemia. Potassium is being replaced. 11. Congestive heart failure. Patient has diuresed about 9 liters so far. Lasix has been discontinued. He is on aldactone now. Cardiology is following him. Pulmonary critical care will sign off now as the patient is being followed by cardiology and he is off the C-PAP. Please feel free to call if there are any additional issues. Edited 07/17/2017 @ [facility]
[2017-07-17] MEDS: DIGOXIN 0.125 MG TAB PO SCH (10:53)
[2017-07-17] MEDS: ADVAIR HFA 230/21MCG INHALER INH SCH ×2 (11:15→21:00)
[2017-07-17] MEDS: TIOTROPIUM INHALER/CAPSULE (SPIRIVA) INH SCH (11:15)
[2017-07-17] MEDS ORDERED: DIGOXIN INJ 0.5 MG/2 ML AMP (J1160) IV ONE (16:00)
--- NOTE | 2017-07-17 18:01 | CR ---
DATE OF CONSULTATION: 07/17/2017 REFERRING PHYSICIAN: Dr. Yohannes Bray CARDIOLOGY CONSULTATION INDICATION: Acute on chronic respiratory distress, congestive heart failure and atrial fibrillation with rapid ventricular response. HISTORY: This 62-year-old father of two grown children, resident of [place], working part-time in [facility] [employer] [facility]. He describes an extremely longstanding heavy smoking history. Despite this history, the patient claims to have only noticed effort dyspnea the past 8 months or so. Over this similar period of time, has noticed an increased weight gain but unaware of lower extremity edema. Has an intermittent cough productive of yellowish-greenish sputum. Denies any history of hemoptysis. Only remote history of bronchitis / pneumonia. Does admit to having been given bronchodilator therapy / inhalers in the past but he has not used these regularly and has not followed up with any medical service. Presented to [facility] 07/06/2017, with worsening shortness of breath and productive cough. Was diagnosed with pneumonia, though official x-ray report was cardiomegaly with moderate interstitial edema and bilateral pleural effusions. The patient was subsequently called with this report and instructed to come to the emergency room. He managed to walk into the emergency room but was complaining of worsening shortness of breath. His daughter claims that he had a momentary loss of awareness just prior to his ER presentation 07/15/2017, at 2:30 p.m. Initial vital signs showed a pulse rate of 136 bpm, blood pressure 134/70, respiratory rate 16 per minute, oxygen saturation 87% on room air, afebrile. EKG confirmed atrial fibrillation with rapid ventricular response and chest x-ray was reported as showing cardiomegaly with pulmonary edema with worsening infiltrates and bilateral pleural effusions from 07/06/2017. Admission blood work showed white blood cell count of 14.7 thousand. Blood cultures were taken. Arterial blood gas showed pH of 7.45, pCO2 of 27, pO2 of 85. Chemistry showed an elevated lactate level of 7.5, potassium was slightly elevated at 5.2, BUN 48, creatinine 1.9 despite his obvious congested state, fasting glucose 111, multiple liver function study abnormalities with ammonia level of 150, elevated PT/INR of 18.3/1.48 without anticoagulant therapy. His troponin I was indeterminate at 0.21 but CPK was significantly elevated at 449 with negative MB fraction, pro BNP level was 10,636. Albumin was 3.3. Ultrasensitive TSH was marginally elevated at 5.4. He was admitted to the hospitalist service with congestive heart failure, acute renal insufficiency, abnormal liver function studies, leukocytosis, hypoxia, lactic acidosis and atrial flutter. I had recommended the use of digoxin 0.5 mg IV to help control his ventricular response. I was officially consulted 07/16/2017, when his rate was still relatively rapid. The patient had been given diltiazem bolus and infusion without much effect. Subsequently he was given metoprolol with a better effect and combination bronchodilator therapy and Lasix. Unfortunately, despite these measures the patient's condition continued to deteriorate with increasing shortness of breath. He reached the progressive care unit at approximately 8 p.m. and had a ventricular response of 125, when previous recordings earlier the same day were in the 90s. Respiratory rate had increased from 18-28, oxygen saturation requiring steadily higher oxygen concentrations and despite this measured 87% at 8 p.m. Blood pressure remained in the normal range. Because of this deterioration, he was transferred to the intensive care unit and pulmonary medicine was consulted. Prior to his transfer to the intensive care unit, the EMR documents a negative fluid balance of close to 8 liters. Fortunately he had a positive response to CPAP and additional Lasix and a dose of digoxin 0.25 mg IV. Upon seeing him this morning he felt considerably better and was able to be taken off his CPAP and provide a current history. Cardinal cardiac symptoms: Shortness of breath as mentioned above but curiously he denies nocturnal dyspnea or orthopnea. Claims not to have been aware of lower leg swelling but does admit to having had a weight gain, but denies any specific number. Prior history of heart murmur in childhood that was non limiting. The patient reports service for a total of 13 years without problem. Denies a history of hypertension, unaware of cardiomegaly. Denies any prior history of chest, jaw or arm discomfort. Unaware of EKG abnormalities but admits to not having had an EKG prior to his admission to hospital here. Had been smoking up to at least a half-a-pack of cigarettes daily until 2 weeks ago (started smoking at age 17 up to three packs a day). Admits to drinking more than five cups of caffeinated coffee daily, perhaps two beers at least once a week but considerably higher alcohol intake in the past. Does not admit to any recreational drug use. Does not use [id number] decongestants, energizer drinks or dietary aids. No documented thyroid dysfunction. No family history of premature sudden cardiac or congenital deafness. Denies any lateralizing neurological deficit, flank pain or hematuria. Worsening dyspnea. No history of claudication, varicose veins or phlebitis. Coronary risk factors: Male gender. Age. Longstanding smoking history. Unaware of hypertension, hypercholesterolemia, diabetes and no family history of premature coronary artery disease. 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 Denies any actual prior hospitalization but has made ER visits for acute on chronic bronchitis. Systems review: Denies any history of headaches, fever, or chills. Vague feeling of weight gain. Wears corrective lens in the left eye, a contact. No hearing problems. Has multiple missing teeth. Denies dysphagia, heartburn, abdominal pains, change in bowel habit or GI bleeding. Nocturia twice nightly is chronic. No known kidney problems or kidney stones. Denies arthritic problems. No bleeding issues or allergies. Medications: On admission, he was taking only antibiotic doxycycline 100 mg twice a day that was started the day before. ALLERGIES: None known. PHYSICAL EXAMINATION: Constitutional: Slightly barrel-chested, late middle-aged male currently wearing a CPAP mask, with the head of the bed elevated 40 degrees in the intensive care unit. Heart rate 100 beats per minute and irregular, blood pressure 136/76 lying (both arms). Respiratory rate 18 per minute, oxygen saturation off his oxygen was running at 84 bpm, with supplemental oxygen by nasal prongs at 4 liters or the Ventimask at 28%, his saturation was 92%. Weight on admission was reported as 86 kg. This morning his weight is 84.5 kg, curiously his intake and output balance was close to 9 liters despite this 2 kg weight loss, questionable. Remains afebrile. Eyes: Slightly icteric but not pale. No xanthelasma. ENT/mouth: Multiple missing teeth, teeth in poor condition. Normal oral moisture. No current central cyanosis. Neck: Trachea midline. Neck veins were elevated at 12-14 cm above the sternal angle. Respiratory: Increased anteroposterior chest diameter with reduced chest excursion. The patient has stony dullness to percussion one half of the way up posteriorly. Has few inspiratory crepitations above this level. Slight prolongation of expiration but no current audible wheezing. Cardiovascular: Apical impulse lateral to the midclavicular line 5th intercostal space. S1 and S2 were variable. No audible gallops or murmur. Normal carotid upstrokes with variable volume related to his arrhythmia. No bruits. Upper extremity, femoral pulses were symmetrical and pedal pulses were slightly reduced. Has obvious sacral, lumbar and lower thoracic pitting edema as he has been lying in bed. Has no more than plus/minus bilateral lower leg pitting. Abdominal aorta was not palpable. No bruits. GI: Soft, nontender abdomen. No splenomegaly but liver span appeared to be approximately 10 cm in the right midclavicular line. Normal bowel sounds. Rectal examination not indicated. Musculoskeletal: No obvious joint deformities. Some proximal muscle weakness but normal tone. No abnormal movements. No asterixis. Normal spine curvature. Neurological/Psychiatric: Slow mentation but alert and oriented, gave a fair history. Eye, facial, and extremity movements were symmetrical and normal. No involuntary movements. Affect was appropriate. Investigations: Portable upright chest x-ray earlier this morning showed obvious cardiomegaly even allowing for this technique. Comparing today's study on this admission there has been considerable reduction in his pleural effusions but he still appears to have pulmonary venous congestion. EKGs: Tracing 11/28/2013, showed sinus rhythm at 78 beats per minute, slightly prominent precordial voltage, but was otherwise normal. Admission tracing 07/15/2017, showed underlying atrial flutter with rate averaging 136 bpm. Has somewhat low voltages with rightward axis and slow precordial R-wave progression with persistent S waves in V5 and V6 in keeping with pulmonary disease. Could not rule out a prior anterior wall myocardial infarction. Diffuse ST/T-wave abnormalities. Followup study last evening showed a slower heart rate, less marked repolarization abnormalities, but was otherwise unchanged. Laboratory data: Laboratory studies today showed a hemoglobin of 17.5 which has been stable, white blood cell count is 16,000 down from 19,000 last evening. Platelet count is normal. Admission PT/INR 18.3 and 1.48. Arterial blood gas as mentioned above was impressively abnormal on admission, with hyperventilation yesterday's serial blood gases showed worsening oxygenation and increase in pCO2 to 42 last evening. Chemistry this morning showed hypokalemia with his diuretic therapy and metabolic alkalosis with bicarbonate of 38 which is an impressive increase from 12/13/2016, when it was normal at 26. BUN was 48 on admission and has remained fairly stable today at 44. Creatinine on admission was 1.9 and it is currently 1.45. Serial fasting glucose normal this morning at 105. Glycosylated hemoglobin was normal at 6.2, magnesium level this morning was 1.9, albumin was low at 2.7. Continues to have an elevated total bilirubin currently 2.2. Transaminases have been elevated since admission but are decreasing currently SGOT 73, SGPT 107, alkaline phosphatase is also slightly elevated. Serial Troponin I levels have all been in an indeterminate range this morning measuring 0.15. CPK has decreased from 449-372 this morning with negative MB fraction. Fasting lipid profile this morning showed a total cholesterol of only 113 and HDL was at 28, triglycerides 81, total/HDL ratio 4.0. Ultra sensitive TSH on admission as mentioned was marginally elevated, T4 was normal. IMPRESSION/PLAN: 1. Heart failure. From his clinical appearance, we are obviously dealing with something of some chronicity. Specific etiology of his heart failure may well be a silent anterior wall infarction, non treated hypertension and compound by probably respiratory insufficiency and possibly chronic hypoxemia. His current decompensation undoubtedly was triggered by his new onset atrial tachyarrhythmia atrial flutter with rapid ventricular response and possibly tachycardia mediated cardiomyopathy. Fortunately his current appearance is considerably better with diuretic therapy and diuresis and slowing of his heart rate with digoxin. He will continue on low-dose digoxin, but I have at least temporarily withheld his diuretic therapy until his electrolytes are corrected. He will be kept on a modest salt and fluid intake restriction. An echocardiogram/Doppler study has just been performed and will be reviewed. I have ordered a combination of vasodilator therapy, isosorbide dinitrate and hydralazine three times a day in low-dose for the time being. Spirolactone has also been added with KCl 20 mEq four times a day until his potassium and bicarbonate have improved. Currently on low-dose [id number] heparin therapy. I would be reluctant to start a systemic heparinization as the patient's PT/INR and ammonia level suggest liver dysfunction of some chronicity. A followup PT/INR will be obtained. We will also have the cardiac rehabilitation service help with CHF education. 2. Atrial flutter (persistent): Likely triggered by underlying LV dysfunction, excessive caffeine, question of, alcohol use and nicotine. Current ventricular response appears to have responded to digoxin therapy. Anticoagulation is on hold until at least his hepatic function improves. A followup PT/INR will be obtained in the morning and we will check stool for occult blood. Remains on low-dose aspirin and low molecular weight heparin. 3. Abnormal EKG: Appearance may well be explained by his body habitus / pulmonary disease but certainly suspicious for anterior wall myocardial infarction. As mentioned, he did have significant repolarization abnormalities on admission with a CPK that was elevated but MB fraction was negative. Troponin level is indeterminate and unchanging likely related to his renal insufficiency. Echocardiogram was just done and may well allow us to assess wall motion and whether he has had a prior infarction more clearly. 4. Cor pulmonale (chronic): Chest CT scan performed 07/16/2017 without contrast showed a normal size left ventricle, at least mildly dilated left atrium, but prominently dilated right ventricle and right atrium with dilated inferior vena cava. I suspect this is related to his longstanding heavy smoking history and pulmonary disease. No history to suggest a prior phlebitis or pulmonary embolism. If his PT/INR improves with diuretic therapy, he would be a candidate for oral anticoagulation but at this point he is "auto anticoagulated". 5. Liver function study abnormalities: Undoubtedly chronic congestion of his liver may account for his current findings including the possibility of cardiac cirrhosis. The precise role of alcoholism cannot be defined at this time. Followup liver function studies are being measured and I have added a PT/INR and ammonia level to his blood work tomorrow. We will continue to follow this gentleman closely with you and appreciate the opportunity to participate in his care. Best regards.
--- NOTE | 2017-07-17 18:39 | ECHO ---
DATE OF PROCEDURE: 07/17/2017 REFERRING PHYSICIAN: Snow Plummer MD AGE: 62 GENDER: Male HEIGHT: 70 inches WEIGHT: 189 pounds BODY SURFACE AREA: 2.04 m2 PATIENT LOCATION: Inpatient, ICU, room 3201 INDICATION: Congestive heart failure. Atrial fibrillation. 2-D MEASUREMENTS: RV: 5.3 cm LV: 4.7 cm Septum: 1.3 cm Posterior wall: 1.3 cm Aortic root: 3.5 cm LA: 4.9 cm LVEF: 55% DOPPLER MEASUREMENTS: AV: 1.3 m/s LVOT: 0.61 m/s LVOT diameter: 2.4 cm MV-E: 100 Early mitral deceleration time: 121 ms E prime: 7.3, E/E prime: 13.7 PV: 0.6 m/s Pulmonary artery acceleration time: 100 ms RVSP: Suspected to be 68 mmHg. IVC: 2.4 COMMENTS: Underlying atrial fibrillation with controlled ventricular response averaging 90 to 100 beats per minute (BPM). No intraventricular conduction disturbance. Mild to moderately dilated left atrium, but normal left ventricular size. Prominently dilated right heart chambers. Mild symmetrically increased left ventricular wall thickness. On real-time imaging from the parasternal and projections the right ventricular free wall was hypokinetic. The basal septum, mid septum and mid to basal anteroseptum all appear to be somewhat paradoxical in motion, but other wall motion was symmetrical and normal. Normal appearing mitral annulus with slight thickening of the edges of the mitral leaflets, but adequate leaflet excursion and no posterior systolic buckling. Three equal size aortic cusps of normal thickness and cusp separation. Normal aortic root size. No apparent intracardiac mass or pericardial effusion. Sizable left pleural effusion. Color flow Doppler study taken from the parasternal and apical projections showed no aortic, at least mild mitral and mild to moderate tricuspid insufficiency. Guided continuous wave Doppler of his aortic valve showed a normal peak systolic velocity against LV outflow tract obstruction. Pulsed and continuous wave Doppler of his left ventricle (LV) inflow tract taken from the apical four-chamber projection showed normal diastolic filling velocities against mitral stenosis. There was only early diastolic/passive filling pattern as we would expect with atrial fibrillation. His early mitral deceleration time was markedly abbreviated suggestive of a "restrictive impairment" of diastolic function and elevated mean left atrial pressure. Pulsed and continuous wave Doppler of his pulmonary trunk showed a normal peak systolic velocity against right ventricle (RV) outflow tract obstruction. His pulmonary artery acceleration time was abbreviated consistent with an elevated pulmonary vascular resistance. Guided continuous wave Doppler of his tricuspid valve allowed our estimation of his right ventricular systolic pressure (suspected to be severely increased). His inferior vena cava was at least mildly dilated and did not collapse with respiration in keeping with a significantly elevated central venous pressure of 20 mmHg. CONCLUSION Mild concentric left ventricle hypertrophy with proximal septal paradoxical motion suspected to be related to right ventricular pressure overload. Preserved global resting left ventricular systolic function. At least mildly dilated left atrium with Doppler sign of restrictive impairment of LV diastolic function in keeping with elevated mean left atrial pressure (further supported by interatrial septum bulging toward the right side with known elevated central venous pressure of at least 20 mmHg. At least moderately prominently dilated right heart chambers with hypokinesis and Doppler evidence of severe pulmonary hypertension. Prominently dilated right atrium and mildly dilated IVC with absent respiratory collapse consistent with right heart failure. Subtle degenerative changes of the mitral valvular apparatus with at least mild insufficiency.
[2017-07-17 18:57] LABS: ALBUMIN 2.7 GM/DL (3.2-5.2); CALCIUM LEVEL 8.9 MG/DL (8.8-10.2); CREATININE FOR GFR 1.38 MG/DL (0.70-1.30); GLOMERULAR FILTRATION RATE 55.4 (>49); PHOSPHORUS LEVEL 3.4 MG/DL (2.5-4.9)
--- NOTE | 2017-07-17 20:38 | IPNPDOC ---
Text Note Date of Service The patient was seen on 07/17/17. NOTE Subjective: Patient seen and examined at bedside. States he is feeling much better. Questioned further about yesterday's events, he states he blacked out at around 3pm while at an [employer] machine. Woke up to find himself on the floor. States this has not happened before, and denied any prodromal symptoms. States he did not eat breakfast or lunch that day. Also states he was recently seen at an urgent care facility, and diagnosed with pneumonia, treated with oral antibiotics. Currently denies any new medical complaints. Objective: General: NAD, lying comfortably in bed, somewhat disheveled HEENT: NC/AT, EOMI Lungs: mild coarse breath sounds bilaterally R>L Heart: +S1S2, irregularly irregular Abd: soft, NT, +BS Ext: gross peripheral edema Neuro: no gross focal deficits Psych: AAOx3 A/P: 62 yo male for syncopal episode, found to be in respiratory distress secondary to decompensated congestive heart failure complicated with atrial tachy rhythm. 1. acute hypoxic respiratory failure - secondary to CHF - responded well to diuresis and NIV - echocardiogram pending - daily weights, I/O's, fluid restriction - cardiology consultation pending for further assistance 2. Afib/flutter - digoxin - BB if needed - echo pending - was rate controlled but again decompensated - responded well again to digoxin therapy - holding off on anti-coagulation for now given coagulopathy 3. MARTINA - likely secondary to decompensated CHF - improving with diuresis 4. Transaminitis - improving with diuresis - likely hepatic congestion 5. Syncope - telemetry monitoring, echocardiogram - check orthostatics 6. DVT prophylaxis - lovenox for now VS,Fishbone, I+O VS, Fishbone, I+O Laboratory Tests 07/16/17 22:19 Red Blood Count 6.20 H, Mean Corpuscular Volume 84.2, Mean Corpuscular Hemoglobin 27.6, Mean Corpuscular Hemoglobin Concent 32.8, Red Cell Distribution Width 19.0 H, Calcium Level 8.7 L, Phosphorus Level 3.6, Aspartate Amino Transf (AST/SGOT) 80 H, Alanine Aminotransferase (ALT/SGPT) 111 H, Lactate Dehydrogenase 376 H, Total Creatine Kinase 372 H, Alkaline Phosphatase 146 H, Total Bilirubin 2.5 H, Direct Bilirubin 1.1 H, Triglycerides Level 99, Cholesterol Level 112, Total Protein 5.9 L, Albumin 2.7 L 07/17/17 04:06 Red Blood Count 6.32 H, Mean Corpuscular Volume 83.4, Mean Corpuscular Hemoglobin 27.7, Mean Corpuscular Hemoglobin Concent 33.2, Red Cell Distribution Width 18.4 H, Calcium Level 8.8, Aspartate Amino Transf (AST/SGOT) 73 H, Alanine Aminotransferase (ALT/SGPT) 107 H, Alkaline Phosphatase 123 H, Total Bilirubin 2.2 H, Triglycerides Level 81, Total Protein 6.3 L, Albumin 2.7 L, Neutrophils (%) (Auto) 78.8 H, Lymphocytes (%) (Auto) 13.2 L, Monocytes (%) ( Auto) 7.4 H, Eosinophils (%) (Auto) 0.1, Basophils (%) (Auto) 0.1, Neutrophils # (Auto) 12.6 H, Lymphocytes # (Auto) 2.1, Monocytes # (Auto) 1.2 H, Eosinophils # (Auto) 0.0, Basophils # (Auto) 0.0, LDL Cholesterol 68.8 07/17/17 18:19 Anion Gap 6 L Vital Signs Date Time Temp Pulse Resp B/P (MAP) Pulse Ox O2 Delivery O2 Flow Rate FiO2 07/17/17 20:00 Nasal Cannula 4.0 07/17/17 20:00 98.7 110 18 99/54 (27) 91 98.7 07/17/17 09:00 28 I&O- Last 24 Hours up to 6 AM 07/18/17 06:00 Intake Total 780 ml Output Total 1000 ml Balance -220 ml YOEL WOLFE MD Jul 17, 2017 20:38
--- NOTE | 2017-07-17 21:15 | ECGEPIP ---
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
--- NOTE | 2017-07-17 21:20 | ECGEPIP ---
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
[2017-07-18] VITALS (7 sets, daily range): BP systolic 99–138; BP diastolic 59–74
[2017-07-18] MEDS ORDERED: DIGOXIN INJ 0.5 MG/2 ML AMP (J1160) IV ONE (00:15)
[2017-07-18 05:24] LABS: BASO % 0.1 % (0.0-1.0); EOS # 0.1 10^3/uL (0.0-0.50); EOS % 0.5 % (0.0-3.0); IMMATURE GRANULOCYTE % 0.3 % (0-0); LYMPH % 18.1 % (24.0-44.0); MEAN CORPUSCULAR HEMOGLOBIN 27.3 pg (27.0-33.0); MEAN CORPUSCULAR HGB CONC 31.8 g/dl (32.0-36.5); MEAN CORPUSCULAR VOLUME 85.9 fl (80.0-96.0); MONO # 0.9 10^3/uL (0.0-0.8); MONO % 7.9 % (0.0-5.0); NEUTROPHILS # 8.1 10^3/uL (1.8-7.7); NEUTROPHILS % 73.1 % (36.0-66.0); PLATELET COUNT, AUTOMATED 169 10^3/uL (150-450); RED CELL DISTRIBUTION WIDTH 18.6 % (11.5-14.5); WHITE BLOOD COUNT 11.1 10^3/uL (4.0-10.0)
[2017-07-18 05:34] LABS: INR 1.15
[2017-07-18 05:42] LABS: ALBUMIN 2.6 GM/DL (3.2-5.2); ALBUMIN/GLOBULIN RATIO 0.87 (1.00-1.93); ALKALINE PHOSPHATASE 119 U/L (45-117); ALT/SGPT 83 U/L (12-78); ANION GAP 6 MEQ/L (8-16); AST/SGOT 55 U/L (7-37); BILIRUBIN,TOTAL 2.2 MG/DL (0.2-1.0); BLOOD UREA NITROGEN 37 MG/DL (7-18); CALCIUM LEVEL 8.3 MG/DL (8.8-10.2); CARBON DIOXIDE LEVEL 35 MEQ/L (21-32); CHLORIDE LEVEL 101 MEQ/L (98-107); CREATININE FOR GFR 1.27 MG/DL (0.70-1.30); GLOMERULAR FILTRATION RATE > 60.0 (>49); GLUCOSE, FASTING 95 MG/DL (80-110); MAGNESIUM LEVEL 2.1 MG/DL (1.8-2.4); POTASSIUM SERUM 4.3 MEQ/L (3.5-5.1); SODIUM LEVEL 142 MEQ/L (136-145); TOTAL PROTEIN 5.6 GM/DL (6.4-8.2)
[2017-07-18] MEDS: **hydrALAZINE** 10 MG TAB PO SCH ×3 (06:13→17:41)
[2017-07-18] MEDS: ISOSORBIDE DIN (ISORDIL) 10 MG TAB PO SCH (06:13)
[2017-07-18] MEDS: ADVAIR HFA 230/21MCG INHALER INH SCH ×2 (07:30→20:22)
[2017-07-18] MEDS: TIOTROPIUM INHALER/CAPSULE (SPIRIVA) INH SCH (07:30)
[2017-07-18] MEDS: IPRATROPIUM 0.5MG/ALBUTEROL 2.5MG INH SOL UD 3ML (DUONEB)(J7620) NEB SCH ×3 (07:31→23:29)
[2017-07-18] MEDS: SPIRONOLACTONE 12.5MG PER 1/2 TABLET PO SCH (08:32)
[2017-07-18] MEDS: POTASSIUM CHLORIDE 10 MEQ SR TABLET PO SCH ×4 (08:32→20:05)
[2017-07-18] MEDS: ASPIRIN 81 MG ENTERIC TAB PO SCH (08:33)
[2017-07-18] MEDS: SENOKOT S TAB PO SCH ×2 (08:33→20:05)
[2017-07-18] MEDS: DIGOXIN 0.125 MG TAB PO SCH (08:33)
[2017-07-18] MEDS: ENOXAPARIN 30 MG/0.3 ML SYR (J1650) SC SCH (08:33)
[2017-07-18] MEDS: FUROSEMIDE 40 MG/4 ML VIAL (J1940) IV SCH ×3 (12:24→23:52)
[2017-07-18] MEDS: ISOSORBIDE DIN. (ISORDIL) 20 MG TAB PO SCH ×2 (12:25→17:40)
[2017-07-18] MEDS: ENOXAPARIN 80 MG/0.8 ML SYRINGE (J1650) SC SCH (20:05)
--- NOTE | 2017-07-18 20:31 | IPNPDOC ---
Text Note Date of Service The patient was seen on 07/18/17. NOTE Patient seen and examined at bedside. no acute complaint. reported improved respiration. denied cp/n/v/f/c Objective: General: NAD, lying comfortably in bed, somewhat disheveled HEENT: NC/AT, EOMI Lungs: mild coarse breath sounds bilaterally R>L Heart: +S1S2, irregularly irregular Abd: soft, NT, +BS Ext: gross peripheral edema Neuro: no gross focal deficits Psych: AAOx3 A/P: 62 yo male poor compliance, no regular f/u Smoker, presented for syncopal episode, found to be in respiratory distress secondary to decompensated congestive heart failure complicated with atrial tachy rhythm. 1. Acute congestive heart failure. We will start the patient on Lasix 40 intravenous (IV) every eight. We will get an echocardiogram. Two-gram sodium diet, and fluid restriction 1.5 liters. 2. Acute renal failure, most probably related to cardiorenal syndrome from congestive heart failure. However, the patient has a family history of polycystic kidney disease so we will get bilateral renal ultrasound to evaluate kidneys for any cystic kidney disease. 3. Transaminitis. Most probably to congestive hepatopathy from congestive heart failure (CHF). However, we will send hepatitis workup. The patient also has very high ammonia level. However, the patient is alert and oriented times three, and does not have any signs of encephalopathy, so we will not treat for elevated ammonia at this point. 4. Tobacco dependence. The patient has a long-term history of smoking, so patient may also have underlying chronic obstructive pulmonary disease (COPD). At present, we will place the patient on DuoNeb and albuterol as needed. Deep venous thrombosis (DVT) prophylaxis has been ordered. 5. Leukocytosis. Blood cultures have been sent and sputum cultures have been sent. Most probably it is reactive. 6. Hypoxia due to congestive heart failure. We will continue with oxygen supplementation. 7. Lactic acidosis. Could be due to hypoxia and excessive work of breathing. Will continue to monitor. 8. Tachycardia. This is a narrow-complex regular tachycardia. It looks like atrial flutter or one of the atrial tachycardias. Will give one dose of digoxin 0.5 IV to see if that causes slowing of the rate. Will consult cardiology if continues to be tachycardic. 9. Elevated troponins. This is most probably because of congestive heart failure and acute kidney injury. We will continue to monitor. 1. acute hypoxic respiratory failure - secondary to CHF, right heart failure 2/2 to Pul HTN - responded well to diuresis, Hydralazine and nitro as per cardiology Dr Steven - echocardiogram done - daily weights, I/O's, fluid restriction - cardiology consultation -ruel workup needed asa outpatient cardio Aldactone 2. Afib/flutter - digoxin avoid bb give chf - echo pending - was rate controlled but again decompensated - responded well again to digoxin therapy - lovenox SQ will discuss with PT regarding AC options 3. MARTINA - likely secondary to decompensated CHF - improving with diuresis 4. Transaminitis - improving with diuresis - likely hepatic congestion will consult to avoid ETOH 5. Syncope - telemetry monitoring, echocardiogram - check orthostatics coagulopathy 2/2 to hepatic congestion Pul htn need outpt sleep study smoking counseling provided 6. DVT prophylaxis - lovenox therapeutic dose dispo Wean O2, PT, clinical improvement, AC VS,Fishbone, I+O VS, Fishbone, I+O Laboratory Tests 07/18/17 04:52 Red Blood Count 5.90, Mean Corpuscular Volume 85.9, Mean Corpuscular Hemoglobin 27.3, Mean Corpuscular Hemoglobin Concent 31.8 L, Red Cell Distribution Width 18.6 H, Neutrophils (%) (Auto) 73.1 H, Lymphocytes (%) (Auto) 18.1 L, Monocytes (%) (Auto) 7.9 H, Eosinophils (%) (Auto) 0.5, Basophils (%) (Auto) 0.1, Neutrophils # (Auto) 8.1 H, Lymphocytes # (Auto) 2.0, Monocytes # (Auto) 0.9 H, Eosinophils # (Auto) 0.1, Basophils # (Auto) 0.0, Calcium Level 8.3 L, Aspartate Amino Transf (AST/SGOT) 55 H, Alanine Aminotransferase (ALT/SGPT) 83 H , Alkaline Phosphatase 119 H, Total Bilirubin 2.2 H, Total Protein 5.6 L, Albumin 2.6 L Vital Signs Date Time Temp Pulse Resp B/P (MAP) Pulse Ox O2 Delivery O2 Flow Rate FiO2 07/18/17 17:40 119/59 07/18/17 16:00 98.6 111 20 91 High Flow Cannula 4.0 98.6 11/6/17 09:00 28 I&O- Last 24 Hours up to 6 AM 07/19/17 06:00 Intake Total 750 ml Output Total 2725 ml Balance -1975 ml AINSLEY ARTEAGA MD Jul 18, 2017 20:31
--- NOTE | 2017-07-18 20:31 | ECGEPIP ---
Stationary ECG Study 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
--- NOTE | 2017-07-18 21:09 | IPN ---
DATE: 07/18/2017 CARDIOLOGY PROGRESS NOTE SUBJECTIVE: Today, the patient feels much more comfortable. No further shortness of breath. Has remained free of chest discomfort or dizziness. No palpitations. Appears to be tolerating his medications without adverse effect. OBJECTIVE: This mildly overweight, slightly barrel-chested, late middle-aged male lay comfortably. Heart rate 100 beats per minute (BPM) and irregular, blood pressure 125/60, respiratory rate 18, oxygen saturation (O2) saturation 94% on 4 liters by nasal prongs. Weight 85.4 kg, slightly up from yesterday, though the recorded intake and output (I and O) from yesterday was -1175 mL. No pallor but slight icterus of his sclera. Normal oral moisture. Trachea midline. Neck veins remain elevated approximately 8 cm above the sternal angle. Slightly increased anteroposterior chest diameter with ongoing stony dullness both lower lobes posteriorly, approximately one half up. No inspiratory rales. Slight prolongation of expiration but no audible wheeze. Heart sounds remain distant. Still has some lumbar and sacral pitting with very slight distal lower leg pitting. 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 LABORATORY DATA: Hemoglobin today was 16.1, white blood cell count has dropped to 11.1 thousand. Normal platelet count. Followup PT/ INR today has improved, dropping to 14.9 and 1.15. His electrolytes showed a mild ongoing metabolic alkalosis, which is improving. Other electrolytes were normal. BUN has dropped to 37, creatinine to 1.27, fasting glucose was 95. Total bilirubin remains elevated at 2.2 but transaminases and alkaline phosphatase continue to gradually improve. His ammonia level has dropped to 24. Albumin remains soft at 2.6. IMPRESSION/PLAN: 1. Heart failure (diastolic dysfunction/acute on chronic): Continues to diurese well with gradually improving signs of congestion. Tolerating his current digoxin, isosorbide dinitrate and hydralazine with spironolactone combination. With his normalized electrolytes, I have resumed his Lasix 40 mg intravenously (IV) every 6 hours for a net negative fluid balance of 1.5 liters daily. The dosage of his isosorbide dinitrate and hydralazine have also been increased. With his improved renal function, his dosage of digoxin will also be increased. 2. Atrial flutter (persistent): Current ventricular response appears to be fairly controlled. With his improved renal function, I have increased the dose of his digoxin slightly. His PT/INR has virtually normalized. Stool for occult blood is still pending. As discussed with Dr. Lopez, his low molecular weight heparin will now be increased to protect him from systemic thromboembolic event. 3. Abnormal EKG: Has remained free of symptomatic myocardial ischemia. No troponin was requested this morning. A followup EKG and troponin I will be obtained tomorrow. For the time being, he remains on protective isosorbide dinitrate, low-dose aspirin and now systemic Lovenox therapy. 4. Hypertensive heart disease (benign with heart failure): His echocardiogram confirms at least mild concentric left ventricular hypertrophy in keeping with chronic hypertension contributing to his congested state. His present blood pressure appears to be well controlled with a combination of isosorbide dinitrate, hydralazine, spironolactone and Lasix therapies. Gratifyingly, his renal insufficiency is improving with vasodilator therapy despite his negative fluid balance. I have increased his isosorbide and hydralazine dosage as mentioned above. 5. Cor pulmonale (chronic): Continues to have signs of right heart failure, but these are slowly but surely improving. A followup PA left lateral chest x-ray will be obtained in the morning. 6. Liver function abnormalities: Happily, these are all improving with relief of his congestion. Continues to be slightly icteric. Followup liver function studies will be obtained tomorrow including a PT/INR. I will continue to follow him closely with you and appreciate the opportunity to participate in his care.
[2017-07-19] VITALS: BP 126/60
[2017-07-19 01:43] LABS: CALCIUM LEVEL 8.8 MG/DL (8.8-10.2); CREATININE FOR GFR 1.39 MG/DL (0.70-1.30); GLOMERULAR FILTRATION RATE 54.9 (>49); MAGNESIUM LEVEL 2.2 MG/DL (1.8-2.4); POTASSIUM SERUM 4.2 MEQ/L (3.5-5.1)
[2017-07-19 04:00] VITALS: BP 111/58
[2017-07-19] MEDS: FUROSEMIDE 40 MG/4 ML VIAL (J1940) IV SCH ×3 (05:09→18:00)
[2017-07-19 05:21] LABS: BASO % 0.2 % (0.0-1.0); EOS # 0.1 10^3/uL (0.0-0.50); EOS % 1.4 % (0.0-3.0); IMMATURE GRANULOCYTE % 0.4 % (0-0); LYMPH # 1.7 10^3/uL (1.5-4.5); LYMPH % 17.3 % (24.0-44.0); MEAN CORPUSCULAR HEMOGLOBIN 27.5 pg (27.0-33.0); MEAN CORPUSCULAR HGB CONC 32.1 g/dl (32.0-36.5); MEAN CORPUSCULAR VOLUME 85.6 fl (80.0-96.0); MONO # 0.9 10^3/uL (0.0-0.8); MONO % 8.8 % (0.0-5.0); NEUTROPHILS # 7.2 10^3/uL (1.8-7.7); NEUTROPHILS % 71.9 % (36.0-66.0); PLATELET COUNT, AUTOMATED 185 10^3/uL (150-450); RED CELL DISTRIBUTION WIDTH 18.2 % (11.5-14.5)
[2017-07-19 05:41] LABS: INR 1.1
[2017-07-19 05:44] LABS: ALBUMIN 2.4 GM/DL (3.2-5.2); ALBUMIN/GLOBULIN RATIO 0.6 (1.00-1.93); CALCIUM LEVEL 8.6 MG/DL (8.8-10.2); CREATININE FOR GFR 1.32 MG/DL (0.70-1.30); GLOMERULAR FILTRATION RATE 58.3 (>49); TOTAL PROTEIN 6.4 GM/DL (6.4-8.2)
[2017-07-19 06:04] LABS: POTASSIUM SERUM 5.1 MEQ/L (3.5-5.1)
[2017-07-19] MEDS: ISOSORBIDE DIN. (ISORDIL) 20 MG TAB PO SCH ×3 (06:20→16:30)
[2017-07-19] MEDS: **hydrALAZINE** 10 MG TAB PO SCH ×3 (06:22→16:30)
[2017-07-19 08:00] VITALS: BP 105/55
[2017-07-19] MEDS: IPRATROPIUM 0.5MG/ALBUTEROL 2.5MG INH SOL UD 3ML (DUONEB)(J7620) NEB SCH ×2 (08:00→15:42)
--- NOTE | 2017-07-19 08:08 | REP ---
PA and lateral chest: Comparisons are the portable chest dated 07/17/[address] of 07/16 2017. The bilateral pleural effusions are unchanged. The interstitial infiltrates have improved. Cardiac size is mildly enlarged. The johnnie, mediastinum, and bony thorax are unremarkable. Signed by Anupam Whipple MD 07/19/2017 07:59 A
[2017-07-19] MEDS: POTASSIUM CHLORIDE 10 MEQ SR TABLET PO SCH (08:15)
[2017-07-19] MEDS: ADVAIR HFA 230/21MCG INHALER INH SCH ×2 (08:24→21:00)
[2017-07-19] MEDS: TIOTROPIUM INHALER/CAPSULE (SPIRIVA) INH SCH (08:24)
[2017-07-19] MEDS: ENOXAPARIN 80 MG/0.8 ML SYRINGE (J1650) SC SCH ×2 (08:28→20:50)
[2017-07-19] MEDS: ASPIRIN 81 MG ENTERIC TAB PO SCH (08:29)
[2017-07-19] MEDS: DIGOXIN 0.25 MG TAB PO SCH (08:29)
[2017-07-19] MEDS: SPIRONOLACTONE 12.5MG PER 1/2 TABLET PO SCH (08:29)
[2017-07-19] MEDS: SENOKOT S TAB PO SCH ×2 (09:00→20:49)
[2017-07-19] MEDS: BISOPROLOL FUM 2.5 MG PER 1/2TAB PO SCH ×2 (10:32→20:49)
[2017-07-19 12:00] VITALS: BP 115/74
[2017-07-19 16:00] VITALS: BP 115/59
--- NOTE | 2017-07-19 18:29 | IPNPDOC ---
Text Note Date of Service The patient was seen on 07/19/17. NOTE Patient seen and examined at bedside. no acute complaint. reported improved respiration. denied cp/n/v/f/c Objective: General: NAD, lying comfortably in bed, somewhat disheveled HEENT: NC/AT, EOMI Lungs: mild coarse breath sounds bilaterally R>L Heart: +S1S2, irregularly irregular Abd: soft, NT, +BS Ext: gross peripheral edema Neuro: no gross focal deficits Psych: AAOx3 A/P: 62 yo male poor compliance, no regular f/u Smoker, presented for syncopal episode, found to be in respiratory distress secondary to decompensated congestive heart failure complicated with atrial tachy rhythm. 1. acute hypoxic respiratory failure - secondary to CHF, right heart failure 2/2 to Pul HTN - responded well to diuresis, Hydralazine and nitro as per cardiology Dr Steven - echocardiogram done - daily weights, I/O's, fluid restriction - cardiology consultation -ruel workup needed asa outpatient cardio Aldactone f/u electrolytes and supplement 2. Afib/flutter - digoxin avoid bb give chf - echo apreciated - was rate controlled but again decompensated - responded well again to digoxin therapy - lovenox SQ will discuss with PT regarding AC options prefer eliquis, d/w case management 3. MARTINA - likely secondary to decompensated CHF - improving with diuresis 4. Transaminitis - improving with diuresis - likely hepatic congestion will consult to avoid ETOH 5. Syncope - telemetry monitoring, echocardiogram - check orthostatics coagulopathy 2/2 to hepatic congestion resolved Pul htn need outpt sleep study smoking counseling provided DVT prophylaxis - lovenox therapeutic dose dispo Wean O2, PT, clinical improvement, AC VS,Fishbone, I+O VS, Fishbone, I+O Laboratory Tests 07/19/17 01:09 Calcium Level 8.8 07/19/17 04:48 Calcium Level 8.6 L, Red Blood Count 5.75, Mean Corpuscular Volume 85.6, Mean Corpuscular Hemoglobin 27.5, Mean Corpuscular Hemoglobin Concent 32.1, Red Cell Distribution Width 18.2 H, Neutrophils (%) (Auto) 71.9 H, Lymphocytes (%) (Auto ) 17.3 L, Monocytes (%) (Auto) 8.8 H, Eosinophils (%) (Auto) 1.4, Basophils (%) (Auto) 0.2, Neutrophils # (Auto) 7.2, Lymphocytes # (Auto) 1.7, Monocytes # ( Auto) 0.9 H, Eosinophils # (Auto) 0.1, Basophils # (Auto) 0.0, Aspartate Amino Transf (AST/SGOT) 63 H, Alanine Aminotransferase (ALT/SGPT) 69, Alkaline Phosphatase 108, Total Bilirubin 3.0 H, Total Protein 6.4, Albumin 2.4 L 07/19/17 13:01 Vital Signs Date Time Temp Pulse Resp B/P (MAP) Pulse Ox O2 Delivery O2 Flow Rate FiO2 07/19/17 16:30 115/59 07/19/17 16:00 98.6 98 20 96 Nasal Cannula 1.0 07/17/17 09:00 28 I&O- Last 24 Hours up to 6 AM 07/20/17 06:00 Intake Total 400 ml Output Total 775 ml Balance -375 ml AINSLEY ARTEAGA MD Jul 19, 2017 18:29
[2017-07-19] MEDS ORDERED: ELIQ5TAB PO (18:31)
[2017-07-19 20:00] VITALS: BP 122/71
[2017-07-19] MEDS: CAPTOpril 6.25 MG PER 1/2 TABLET PO SCH (20:49)
[2017-07-19] MEDS ORDERED: POTASSIUM CHLORIDE 10 MEQ SR TABLET PO SCH (21:00)
[2017-07-20] VITALS (8 sets, daily range): BP systolic 104–130; BP diastolic 62–78; O2SAT 96
[2017-07-20] MEDS: FUROSEMIDE 40 MG/4 ML VIAL (J1940) IV SCH ×2 (00:10→06:00)
[2017-07-20] MEDS: IPRATROPIUM 0.5MG/ALBUTEROL 2.5MG INH SOL UD 3ML (DUONEB)(J7620) NEB SCH ×3 (00:20→23:10)
--- NOTE | 2017-07-20 00:44 | IPN ---
DATE OF SERVICE: 07/19/2017 Cardiology Progress Note SUBJECTIVE: The patient has been up walking in the [place] without chest discomfort and dramatically improved respiration. Remains free of any palpitations and dizziness. Tolerating his medications without adverse effect. OBJECTIVE: Mildly overweight, slightly barrel-chested, late middle-aged male lying comfortably. Heart rate 94 beats per minute (BPM) and irregular, blood pressure 115/59 supine, respiratory rate 18 per minute, oxygen saturation 96% on supplemental oxygen by nasal prongs at 1 liter per minute. Afebrile. Weight today is down to 83 kg from admission weight of 86 kg. Intake and output (I and O) balance yesterday was close to 2 liters negative. No pallor. Slight ongoing icterus of his sclerae. Normal oral moisture. Trachea midline. Neck veins appear down to 4-5 cm above the sternal angle. Still has slight dullness over the left base posteriorly, but improved air entry over the right base. No current inspiratory crepitations. Slight prolongation of expiration, but no audible wheeze. Heart sounds remain irregular and distant. Soft abdomen with no current lower leg pitting, but still has 1 mm pitting over his sacrum and lower lumbar spine. property assessment monitor: This shows underlying atrial fibrillation with fairly controlled ventricular response at rest at this time. We have started low-dose very selective beta debbie bisoprolol to help control his ventricular response. PA and left lateral chest x-ray: Reviewed independently shows ongoing cardiomegaly with a dramatic improvement in pulmonary venous congestion. Still has the left pleural effusion. EKG: Tracing taken yesterday shows atrial fibrillation with a controlled ventricular response of 90 bpm. Isolated wide complex beat, likely PVC. Borderline right axis deviation with prominent precordial voltage and repolarization abnormalities in keeping with left ventricular hypertrophy. Appearance clearly different from his admission tracing, which showed a rapid ventricular response, but also considerably less voltage. With his diuresis and weight loss, interstitial edema is significantly less accounting for this change. LABORATORY DATA: Hemoglobin today is stable at 15.8 with normal white blood cell count and platelet count. Blood work earlier today showed a potassium of 4.2. Later this morning it was up to 5.1, but the specimen was hemolyzed. Repeat measurement of his potassium was only 3.8. BUN and creatinine continue to improve with BUN now 31, creatinine 1.3, fasting glucose was 94, total bilirubin still elevated at 3, and SGOT 63, but alkaline phosphatase was normal. Albumin remains soft at 2.4. Troponin I is virtually negative and magnesium level was normal at 2. IMPRESSION/PLAN: 1. Heart failure (diastolic/acute on chronic): I am impressed with his continued diuresis and improving renal function. He is now ambulating without much shortness of breath. Still has some signs of congestion. I have maintained his current negative Lasix intravenous (IV) therapy for the time being along with low-dose spironolactone and digoxin. In light of his improved renal function, I have elected to discontinue his isosorbide dinitrate and hydralazine and try introducing short-acting angiotensin-converting enzyme (CARLOZ) inhibitor captopril 6.25 mg twice a day. We will continue to monitor his renal function closely. His potassium supplement has been reordered. 2. Atrial flutter/fibrillation (persistent): In order to improve heart rate control and left ventricular filling, low-dose selective beta-debbie bisoprolol has been added to his digoxin. Currently receiving ygm-hzszwjijx-vzqxyt heparin 70 mg subcutaneously every 12 hours without clinical evidence of bleeding. Our plan would be to switch to a once a day agent such as Xarelto versus warfarin prior to his discharge home. 3. Abnormal EKG: With his digoxin therapy, he has developed slightly more prominent repolarization abnormalities, but this is not unexpected. With his diuresis, precordial voltage has significantly increased revealing that he does have left ventricular hypertrophy as shown from his echocardiographic study. With his ambulation, he has been free of chest discomfort to suggest angina. With his multiple coronary risk factors, it would be prudent to further define his coronary prognosis objectively. 4. Hypertensive heart disease (benign with heart failure): Improving congested state as mentioned above with currently controlled blood pressure on combination isosorbide dinitrate, hydralazine, spironolactone and Lasix. I am confident we will be able to be do just as well with CARLOZ inhibition, if not better. I am starting with low-dose shorter acting captopril and will be closely monitoring his renal function. 5. Cor pulmonale (chronic): Continues to have signs of right heart failure, but these are steadily improving. Chest x-ray as mentioned above. 6. Liver function abnormalities: Curiously continues to have an elevated bilirubin. His alkaline phosphatase has normalized and SGPT has also normalized. I am cautiously optimistic this will resolve spontaneously with relief of his congestion. At this point, his IV Lasix may well be able to be switched to an oral agent tomorrow. I would hope to be able to ensure a controlled heart rate with combination digoxin and bisoprolol once a day prior to his discharge home. I would also hope that we would be able to ultimately switch his CARLOZ inhibitor to lisinopril once daily to control his blood pressure and hopefully simplify his therapy. If he continues to be free of any clinical bleeding on his dnn-hkpjgveac-plsbpy heparin, we would hope to switch to oral therapy. Hopefully arrangements can be made for him to be on with social systems. We are aiming for his tentative discharge for Monday.
[2017-07-20 05:18] LABS: BASO % 0.3 % (0.0-1.0); EOS # 0.2 10^3/uL (0.0-0.50); EOS % 1.8 % (0.0-3.0); IMMATURE GRANULOCYTE % 0.3 % (0-0); LYMPH % 21.2 % (24.0-44.0); MEAN CORPUSCULAR HEMOGLOBIN 27.3 pg (27.0-33.0); MEAN CORPUSCULAR HGB CONC 32.2 g/dl (32.0-36.5); MEAN CORPUSCULAR VOLUME 84.7 fl (80.0-96.0); MONO # 1.1 10^3/uL (0.0-0.8); NEUTROPHILS # 6.3 10^3/uL (1.8-7.7); NEUTROPHILS % 65.4 % (36.0-66.0); PLATELET COUNT, AUTOMATED 202 10^3/uL (150-450); WHITE BLOOD COUNT 9.6 10^3/uL (4.0-10.0)
[2017-07-20 05:39] LABS: ALBUMIN 2.7 GM/DL (3.2-5.2); ALBUMIN/GLOBULIN RATIO 0.64 (1.00-1.93); ALKALINE PHOSPHATASE 109 U/L (45-117); ALT/SGPT 61 U/L (12-78); ANION GAP 5 MEQ/L (8-16); AST/SGOT 43 U/L (7-37); BILIRUBIN,TOTAL 2.5 MG/DL (0.2-1.0); BLOOD UREA NITROGEN 28 MG/DL (7-18); CALCIUM LEVEL 9.3 MG/DL (8.8-10.2); CARBON DIOXIDE LEVEL 33 MEQ/L (21-32); CHLORIDE LEVEL 99 MEQ/L (98-107); CREATININE FOR GFR 1.11 MG/DL (0.70-1.30); GLOMERULAR FILTRATION RATE > 60.0 (>49); GLUCOSE, FASTING 98 MG/DL (80-110); MAGNESIUM LEVEL 2.1 MG/DL (1.8-2.4); POTASSIUM SERUM 3.9 MEQ/L (3.5-5.1); SODIUM LEVEL 137 MEQ/L (136-145); TOTAL PROTEIN 6.9 GM/DL (6.4-8.2)
[2017-07-20] MEDS: ADVAIR HFA 230/21MCG INHALER INH SCH ×2 (07:59→21:00)
[2017-07-20] MEDS: TIOTROPIUM INHALER/CAPSULE (SPIRIVA) INH SCH (07:59)
[2017-07-20] MEDS: DIGOXIN 0.25 MG TAB PO SCH (08:12)
[2017-07-20] MEDS: SPIRONOLACTONE 12.5MG PER 1/2 TABLET PO SCH (08:13)
[2017-07-20] MEDS: ASPIRIN 81 MG ENTERIC TAB PO SCH (08:13)
[2017-07-20] MEDS: SENOKOT S TAB PO SCH ×2 (08:13→20:21)
[2017-07-20] MEDS: BISOPROLOL FUMARATE 5 MG TAB PO SCH ×2 (08:13→20:21)
[2017-07-20] MEDS: CAPTOpril 6.25 MG PER 1/2 TABLET PO SCH ×2 (08:13→20:20)
[2017-07-20] MEDS: APIXABAN 5 MG TAB (ELIQUIS) PO SCH ×2 (08:37→20:21)
[2017-07-20] MEDS ORDERED: FUROSEMIDE 40 MG TAB PO SCH (09:00)
[2017-07-20] MEDS ORDERED: DIGO0.25 PO (14:08)
[2017-07-20] MEDS ORDERED: CAPT62TA PO (14:08)
[2017-07-20] MEDS ORDERED: ALDA25TA2 PO (14:08)
[2017-07-20] MEDS ORDERED: FURO40TA2 PO (14:08)
[2017-07-20] MEDS ORDERED: BISO5TAB5 PO (14:08)
[2017-07-20] MEDS ORDERED: ASPI81TAEC PO (14:08)
--- NOTE | 2017-07-20 16:23 | IPNPDOC ---
Text Note Date of Service The patient was seen on 07/20/17. NOTE Patient seen and examined at bedside. no acute complaint. reported improved respiration. off of O2, denied cp/n/v/f/c Objective: General: NAD, lying comfortably in bed, somewhat disheveled HEENT: NC/AT, EOMI Lungs: mild coarse breath sounds bilaterally R>L Heart: +S1S2, irregularly irregular Abd: soft, NT, +BS Ext: gross peripheral edema Neuro: no gross focal deficits Psych: AAOx3 A/P: 62 yo male poor compliance, no regular f/u Smoker, presented for syncopal episode, found to be in respiratory distress secondary to decompensated congestive heart failure complicated with atrial tachy rhythm. 1. acute hypoxic respiratory failure - secondary to CHF, right heart failure 2/2 to Pul HTN - responded well to diuresis cardiology Dr Steven - echocardiogram done - daily weights, I/O's, fluid restriction -ruel workup needed asa outpatient cardio Aldactone, Acei and BB as per cardio f/u electrolytes and supplement Lasix switched to PO 2. Afib/flutter - digoxin bb - echo apreciated -eliqus as discussing risk and benefit with PT 3. MARTINA - likely secondary to decompensated CHF - improving with diuresis 4. Transaminitis - improving with diuresis - likely hepatic congestion will consult to avoid ETOH 5. Syncope - telemetry monitoring, echocardiogram - check orthostatics coagulopathy 2/2 to hepatic congestion resolved Pul htn need outpt sleep study smoking counseling provided DVT prophylaxis - eliquis dispo Wean O2, PT, clinical improvement,social work to confirm patient could afford home meds VS,Fishbone, I+O VS, Fishbone, I+O Laboratory Tests 07/20/17 04:49 Red Blood Count 6.08, Mean Corpuscular Volume 84.7, Mean Corpuscular Hemoglobin 27.3, Mean Corpuscular Hemoglobin Concent 32.2, Red Cell Distribution Width 19.0 H, Neutrophils (%) (Auto) 65.4, Lymphocytes (%) (Auto) 21.2 L, Monocytes (% ) (Auto) 11.0 H, Eosinophils (%) (Auto) 1.8, Basophils (%) (Auto) 0.3, Neutrophils # (Auto) 6.3, Lymphocytes # (Auto) 2.0, Monocytes # (Auto) 1.1 H, Eosinophils # (Auto) 0.2, Basophils # (Auto) 0.0, Calcium Level 9.3, Aspartate Amino Transf (AST/SGOT) 43 H, Alanine Aminotransferase (ALT/SGPT) 61, Alkaline Phosphatase 109, Total Bilirubin 2.5 H, Total Protein 6.9, Albumin 2.7 L Vital Signs Date Time Temp Pulse Resp B/P (MAP) Pulse Ox O2 Delivery O2 Flow Rate FiO2 07/20/17 08:12 121 07/20/17 08:00 97.4 23 117/63 (81) 93 Room Air 07/20/17 00:22 1.0 07/17/17 09:00 28 I&O- Last 24 Hours up to 6 AM 07/21/17 06:00 Intake Total 180 ml Output Total 700 ml Balance -520 ml AINSLEY ARTEAGA MD Jul 20, 2017 16:23
--- NOTE | 2017-07-20 18:10 | IPN ---
DATE: 07/20/2017 CARDIOLOGY PROGRESS NOTE SUBJECTIVE: The patient claims to have been walking in the [place] on several occasions today with considerably improved shortness of breath. No further chest discomfort. Remains unaware of any palpitations and denies dizziness. No bleeding problems on his oral anticoagulation. OBJECTIVE: Mildly overweight, slightly barrel-chested, late middle-aged male was lying comfortably. Heart rate 98-100 beats per minute (bpm) and irregular, blood pressure 110/66 supine, 100/56 sitting with legs dependent, respiratory rate 18 per minute, oxygen (O2) saturation 93% on room air. Afebrile. Weight today 81.1 kg (178 pounds) down from 86.4 kg on admission. Intake and output (I and O) balance -1700 mL yesterday. No pallor but continues to have slight scleral icterus. Normal oral moisture. Trachea midline. Neck veins were not visible above the clavicle with him sitting. Improved air entry over both lung helms including posteriorly over the left base. No longer has any sacral or lower extremity pitting edema. air sampling and monitoring: On his combination digoxin and bisoprolol, his ventricular response today has significantly improved. LABORATORY DATA: Hemoglobin stable at 16.6. Normal white blood cell count and platelet count. Has a slight metabolic alkalosis, bicarbonate 33, potassium is 3.9. Despite his diuresis, his BUN has dropped to 28, creatinine 1.1, fasting glucose was 98. Serum calcium was normal. Serum albumin was 2.7. Total bilirubin is down from 3 to 2.5 today. SGOT is down from 63 to 43 today. Normal alkaline phosphatase. Blood cultures are negative after 5 days. IMPRESSION/PLAN: 1. Heart failure (diastolic/acute on chronic): At this point, he appears to be free of symptom or sign of congestion. Despite his diuresis, his BUN and creatinine today have improved. I believe he could be discharged tomorrow on his current combination digoxin, low dose captopril, spironolactone and Lasix. The precise dosage of Lasix I would defer until we see his chemistry tomorrow. Whether he is actually discharged on captopril, will depend on his blood pressure tomorrow morning. 2. Atrial flutter/fibrillation (persistent): As mentioned, his ventricular response is now controlled with digoxin and bisoprolol. He is tolerating the selective beta-debbie without aggravating his respiratory problems. He has been started on Eliquis and has been free of any bleeding problems. Hemoglobin as mentioned above. 3. Abnormal EKG: Has remained free of symptomatic myocardial ischemia. Continues on protective combination bisoprolol, captopril, and Eliquis. We will discuss further objective definition of his coronary prognosis as an outpatient with noninvasive testing when we see him in followup. 4. Hypertensive heart disease (benign with heart failure). Current blood pressure may be considered somewhat soft as discussed with Dr. Lopez. Should his blood pressure drop further, I would be inclined to discontinue his angiotensin-converting enzyme (CARLOZ) inhibition and maintain the same bisoprolol and spirolactone. The precise dose of Lasix I will also leave to Dr. Lopez pending his renal function and blood pressure tomorrow morning. 5. Cor pulmonale (chronic): No current signs of right heart failure. Oxygenation on room air is now normal. Further workup of his pulmonary hypertension, respiratory problems and possible sleep disorder, I have left to pulmonary medicine. 6. Liver function abnormalities: We have not started amiodarone or statin therapy because of his liver function abnormalities. These had been suspected to be due to chronic hepatic congestion plus/minus possible alcoholism. Fortunately they are still improving. I anticipate he will be able to be discharged home tomorrow. Will obviously need to follow a modest salt and fluid intake restriction. Hopefully cardiac rehabilitation will have instructed him in anti-failure measures including daily weights and to contact us should his weight increase by 2 pounds or more, or he develop worsening leg swelling. My office will be calling with a followup appointment here in 7-10 days.
[2017-07-21] VITALS: BP 127/57
[2017-07-21 04:00] VITALS: BP 112/72
[2017-07-21 04:55] LABS: BASO # 0.1 10^3/uL (0.0-0.2); BASO % 0.6 % (0.0-1.0); EOS # 0.2 10^3/uL (0.0-0.50); EOS % 1.7 % (0.0-3.0); IMMATURE GRANULOCYTE % 0.2 % (0-0); LYMPH # 2.4 10^3/uL (1.5-4.5); LYMPH % 23.7 % (24.0-44.0); MEAN CORPUSCULAR HEMOGLOBIN 27.2 pg (27.0-33.0); MEAN CORPUSCULAR HGB CONC 31.9 g/dl (32.0-36.5); MEAN CORPUSCULAR VOLUME 85.2 fl (80.0-96.0); MONO # 1.2 10^3/uL (0.0-0.8); MONO % 11.9 % (0.0-5.0); NEUTROPHILS # 6.3 10^3/uL (1.8-7.7); NEUTROPHILS % 61.9 % (36.0-66.0); PLATELET COUNT, AUTOMATED 207 10^3/uL (150-450); WHITE BLOOD COUNT 10.1 10^3/uL (4.0-10.0)
[2017-07-21 05:15] LABS: ALBUMIN 2.5 GM/DL (3.2-5.2); ALBUMIN/GLOBULIN RATIO 0.64 (1.00-1.93); ALKALINE PHOSPHATASE 111 U/L (45-117); ALT/SGPT 65 U/L (12-78); ANION GAP 5 MEQ/L (8-16); AST/SGOT 54 U/L (7-37); BILIRUBIN,TOTAL 1.8 MG/DL (0.2-1.0); BLOOD UREA NITROGEN 36 MG/DL (7-18); CALCIUM LEVEL 8.7 MG/DL (8.8-10.2); CARBON DIOXIDE LEVEL 31 MEQ/L (21-32); CHLORIDE LEVEL 100 MEQ/L (98-107); CREATININE FOR GFR 1.22 MG/DL (0.70-1.30); GLOMERULAR FILTRATION RATE > 60.0 (>49); GLUCOSE, FASTING 94 MG/DL (80-110); MAGNESIUM LEVEL 2.1 MG/DL (1.8-2.4); POTASSIUM SERUM 3.9 MEQ/L (3.5-5.1); SODIUM LEVEL 136 MEQ/L (136-145); TOTAL PROTEIN 6.4 GM/DL (6.4-8.2)
[2017-07-21] MEDS: TIOTROPIUM INHALER/CAPSULE (SPIRIVA) INH SCH (07:11)
[2017-07-21] MEDS: IPRATROPIUM 0.5MG/ALBUTEROL 2.5MG INH SOL UD 3ML (DUONEB)(J7620) NEB SCH (07:11)
[2017-07-21] MEDS: ADVAIR HFA 230/21MCG INHALER INH SCH (07:11)
[2017-07-21 08:00] VITALS: BP 117/70
[2017-07-21] MEDS: SENOKOT S TAB PO SCH (08:13)
[2017-07-21] MEDS: BISOPROLOL FUMARATE 5 MG TAB PO SCH (08:13)
[2017-07-21] MEDS: ASPIRIN 81 MG ENTERIC TAB PO SCH (08:13)
[2017-07-21] MEDS: DIGOXIN 0.25 MG TAB PO SCH (08:13)
[2017-07-21] MEDS: SPIRONOLACTONE 12.5MG PER 1/2 TABLET PO SCH (08:14)
[2017-07-21] MEDS: CAPTOpril 6.25 MG PER 1/2 TABLET PO SCH (08:14)
[2017-07-21] MEDS: APIXABAN 5 MG TAB (ELIQUIS) PO SCH (08:14)
[2017-07-21] MEDS ORDERED: LASI20TA PO (10:35)
[2017-07-21] MEDS ORDERED: METO1TAB32 PO (12:05)
[2017-07-21] MEDS ORDERED: LISI2.5T3 PO (12:05)
--- NOTE | 2017-07-21 15:32 | DSES ---
DATE OF ADMISSION: 07/15/2017 DATE OF DISCHARGE: 07/21/2017 PRIMARY CARE PROVIDER: None. Arrangements are made for the patient to get a primary care provider at [facility]. DIGITAL ASSET SPECIALIST: Dr. Steven. BUSINESS TRAVEL CONSULTANT: Dr. Cavazos. FINAL DIAGNOSES: 1. Acute hypoxic respiratory failure secondary to right heart failure with congestive heart failure (CHF). 2. Diastolic dysfunction. 3. Pulmonary artery hypertension. 4. New onset atrial fibrillation. 5. Acute kidney injury. 6. Transaminitis. 7. Syncope. 8. Hepatic congestion. 9. Coagulopathy. 10. Pulmonary artery hypertension. 11. Smoking. HISTORY OF PRESENT ILLNESS: This is a 62-year-old male patient with no regular followup that has been having dyspnea on exertion and cough for at least 6 months that is progressively worsening, which has been worsened over the past 2 weeks. About 10 days ago the patient went to urgent care as he could hardly walk a few blocks and then normally he used to walk about 2 hours per day without any difficulties and he cannot speak in full sentences. At that time, he was diagnosed with bronchitis, given doxycycline; however, chest x-ray was done at urgent care and shows some features of pulmonary edema and pleural effusion, suggestive of congestive heart failure (CHF). The patient presented to the emergency room. In spite of taking antibiotics, he is still not feeling any better with worsening breathing in the emergency room. The patient was found to be hypoxic down to 87% on room air with tachycardia into 136, now complex tachycardia, unable to speak in full sentences and with extreme shortness of breath. Chest x-ray was done showing bilateral pleural effusion with interstitial edema and was diagnosed with congestive heart failure. Subsequently admitted to the hospital and was also found to have elevated creatinine, as well as transaminitis, lactic acidosis with elevated pro BNP. HOSPITAL COURSE: The patient was admitted to the hospital and was diuresed. The patient's coagulopathy and ultrasound of the abdomen was done for the patient's transaminitis. Echocardiogram was done. Cardiac enzymes were trended. Cardiology was consulted. The patient was aggressively diuresed with improvement of kidney function and liver function as well with improvement of coagulopathy. Medical Laboratory Technologist has been consulted. Initially, the patient was requiring bilevel positive airway pressure (BIPAP) and later was off of BiPAP and weaned progressively off of oxygen. Physical therapy was done. Appreciate Dr. Cavazos' assistance and Dr. Steven. The patient's blood pressure medications and cardiac medications were optimized. The patient was also rate controlled on Digoxin and later on beta blockers. Strict input and output and daily weight. The patient is currently tolerating oral. Arrangements are made for the patient to have a primary care provider as an outpatient. The patient currently feels comfortable and in no acute distress. Tolerating oral. Ready for discharge for further care as an outpatient. VITAL SIGNS: Temperature 97.5, pulse 74, respirations 20, blood pressure 117/70, pulse oximetry 93% on room air. GENERAL: The patient is alert, comfortable and in no acute distress. HEENT: Normocephalic, atraumatic. PULMONARY: Diminished breath sounds in bilateral bases. Bilaterally clear. CARDIAC: Irregularly irregular. S1, S2. ABDOMEN: Soft, nontender. EXTREMITIES: Trace edema in bilateral lower extremities. LABORATORY DATA: WBC 10.1, hemoglobin and hematocrit 16.9/53, platelets 207. Chemistry: Sodium 136, potassium 3.9, chloride 100, bicarbonate 31, BUN 36, creatinine 1.22. Fecal occult negative. Influenza negative. Blood culture negative to date. DISCHARGE MEDICATIONS: Given insurance did not approve Zebeta, the patient was discharged on metoprolol succinate 25 mg by mouth daily and given insurance did not approve Captopril, the patient was discharged on Lisinopril 2.5 mg by mouth daily, Eliquis 5 mg by mouth twice a day, aspirin 81 mg by mouth daily, digoxin 0.25 mg by mouth daily, Lasix 20 mg by mouth daily, spironolactone 12.5 mg by mouth daily. DISCHARGE INSTRUCTIONS: The patient is instructed to followup with primary care provider in 7 days and gray tender in 7 days. Strict input and output. Daily weights. Return to the hospital if symptoms worsen. Refrain from alcohol or smoking, counseling has been provided. Time spent arranging and coordinating discharge: 40 minutes.
--- NOTE | 2017-07-21 18:09 | ECGEPIP ---
Stationary ECG Study [facility] Test Date: 2017-07-19 Pat Name: JOHN HERNANDEZ Department: Room: [place] [address] Gender: M Field Training Manager: NATALIYA : 1955 Requested By: John Steven Order Number: [id number] Reading MD: Alistair Ruffin Measurements Intervals [place] Rate: 118 P: MN: 0 QRS: 88 QRSD: 98 T: -19 QT: 305 QTc: 429 Interpretive Statements ATRIAL FIBRILLATION WITH RAPID VENTRICULAR RESPONSE WITH ABERRANT CONDUCTION OR VENTRICULAR PREMATURE COMPLEXES CONSIDER AWMI, OLD NONSPECIFIC ST & T-WAVE ABNORMALITY NO CHANGE SINCE 07/18/17 Electronically Signed On 07-21-2017 18:09:15 EST by Alistair Ruffin
== END 2017-07-21 13:11 | disposition home or self-care (01) | DRG 194 ==
LOC: M ED 14:30 → M ED INP 16:47 → M PCU 07-16 19:02 → M ICU 07-16 21:45
PROVIDERS: ADMIT Internal Medicine Nephrology; ATTEND Hospitalist
DX: I11.0 Hypertensive heart disease with heart failure (principal); N17.9 Acute kidney failure, unspecified; E87.4 Mixed disorder of acid-base balance; J96.21 Acute and chronic respiratory failure with hypoxia; J43.9 Emphysema, unspecified; R74.0 Nonspecific elevation of levels of transaminase and lactic acid dehydrogenase [LDH]; I48.92 Unspecified atrial flutter; R55 Syncope and collapse; R91.1 Solitary pulmonary nodule; Z87.891 Personal history of nicotine dependence; E87.6 Hypokalemia; I50.33 Acute on chronic diastolic (congestive) heart failure; I27.81 Cor pulmonale (chronic); K76.1 Chronic passive congestion of liver; I27.20 Pulmonary hypertension, unspecified; E66.3 Overweight; Z68.26 Body mass index [BMI] 26.0-26.9, adult

== ENCOUNTER → 2017-08-01 | Outpatient (REF) | payer MEDICAID ==
[~2017-08-01] MED LIST: ALDA25TA2 PO; ASPI81TAEC PO; BISO5TAB5 PO; CAPT62TA PO; DIGO0.25 PO; DOXY100C PO; ELIQ5TAB PO; FURO40TA2 PO; LASI20TA PO; LISI2.5T3 PO; METO1TAB32 PO
[2017-08-01 14:26] LABS: MEAN CORPUSCULAR HEMOGLOBIN 27.1 pg (27.0-33.0); MEAN CORPUSCULAR HGB CONC 31.9 g/dl (32.0-36.5); PLATELET COUNT, AUTOMATED 297 10^3/uL (150-450); RED CELL DISTRIBUTION WIDTH 18.6 % (11.5-14.5); WHITE BLOOD COUNT 6.4 10^3/uL (4.0-10.0)
[2017-08-01 14:40] LABS: ALBUMIN 3.4 GM/DL (3.2-5.2); ALBUMIN/GLOBULIN RATIO 0.92 (1.00-1.93); ALKALINE PHOSPHATASE 149 U/L (45-117); ALT/SGPT 66 U/L (12-78); ANION GAP 6 MEQ/L (8-16); AST/SGOT 44 U/L (7-37); BILIRUBIN,TOTAL 0.8 MG/DL (0.2-1.0); BLOOD UREA NITROGEN 29 MG/DL (7-18); CALCIUM LEVEL 9.4 MG/DL (8.8-10.2); CARBON DIOXIDE LEVEL 28 MEQ/L (21-32); CHLORIDE LEVEL 100 MEQ/L (98-107); CREATININE FOR GFR 1.22 MG/DL (0.70-1.30); GLOMERULAR FILTRATION RATE > 60.0 (>49); GLUCOSE, FASTING 89 MG/DL (80-110); POTASSIUM SERUM 4.8 MEQ/L (3.5-5.1); SODIUM LEVEL 134 MEQ/L (136-145); TOTAL PROTEIN 7.1 GM/DL (6.4-8.2)
== END ==
LOC: M LABDRAW1 13:24
PROVIDERS: ATTEND Internal Medicine Cardiovascular Disease
DX: I50.32 Chronic diastolic (congestive) heart failure (principal); I48.1 Persistent atrial fibrillation

== ENCOUNTER → 2017-08-30 | Outpatient (REF) | payer OTHER ==
[2017-08-30 15:08] LABS: BASO # 0.1 10^3/uL (0.0-0.2); BASO % 0.8 % (0.0-1.0); EOS # 0.3 10^3/uL (0.0-0.50); IMMATURE GRANULOCYTE % 0.1 % (0-0); LYMPH # 3.3 10^3/uL (1.5-4.5); LYMPH % 43.1 % (24.0-44.0); MEAN CORPUSCULAR HEMOGLOBIN 27.2 pg (27.0-33.0); MEAN CORPUSCULAR HGB CONC 32.7 g/dl (32.0-36.5); MEAN CORPUSCULAR VOLUME 83.2 fl (80.0-96.0); MONO # 0.8 10^3/uL (0.0-0.8); MONO % 10.7 % (0.0-5.0); NEUTROPHILS # 3.1 10^3/uL (1.8-7.7); NEUTROPHILS % 41.3 % (36.0-66.0); PLATELET COUNT, AUTOMATED 223 10^3/uL (150-450); RED CELL DISTRIBUTION WIDTH 17.5 % (11.5-14.5); WHITE BLOOD COUNT 7.6 10^3/uL (4.0-10.0)
[2017-08-30 15:30] LABS: ALBUMIN 3.8 GM/DL (3.2-5.2); ALBUMIN/GLOBULIN RATIO 1.06 (1.00-1.93); ALKALINE PHOSPHATASE 108 U/L (45-117); ALT/SGPT 37 U/L (12-78); ANION GAP 6 MEQ/L (8-16); AST/SGOT 26 U/L (7-37); BILIRUBIN,TOTAL 0.9 MG/DL (0.2-1.0); BLOOD UREA NITROGEN 25 MG/DL (7-18); CALCIUM LEVEL 9.2 MG/DL (8.8-10.2); CARBON DIOXIDE LEVEL 31 MEQ/L (21-32); CHLORIDE LEVEL 103 MEQ/L (98-107); CREATININE FOR GFR 1.11 MG/DL (0.70-1.30); FREE T4 1.05 NG/DL (0.76-1.46); GLOMERULAR FILTRATION RATE > 60.0 (>49); GLUCOSE, FASTING 81 MG/DL (80-110); POTASSIUM SERUM 4.6 MEQ/L (3.5-5.1); SODIUM LEVEL 140 MEQ/L (136-145); TOTAL PROTEIN 7.4 GM/DL (6.4-8.2)
== END ==
LOC: M SFHCSACK 09:15
PROVIDERS: ATTEND Physician Assistant
DX: Z00.00 Encounter for general adult medical examination without abnormal findings (principal); R74.8 Abnormal levels of other serum enzymes; Z13.29 Encounter for screening for other suspected endocrine disorder; R73.09 Other abnormal glucose; N17.9 Acute kidney failure, unspecified; Z13.21 Encounter for screening for nutritional disorder

== ENCOUNTER → 2017-10-17 | Outpatient (REF) | payer OTHER ==
[2017-10-17 18:20] LABS: ALBUMIN 3.8 GM/DL (3.2-5.2); ALBUMIN/GLOBULIN RATIO 1.06 (1.00-1.93); ALKALINE PHOSPHATASE 97 U/L (45-117); ALT/SGPT 42 U/L (12-78); ANION GAP 8 MEQ/L (8-16); AST/SGOT 25 U/L (7-37); BILIRUBIN,TOTAL 0.6 MG/DL (0.2-1.0); BLOOD UREA NITROGEN 29 MG/DL (7-18); CARBON DIOXIDE LEVEL 29 MEQ/L (21-32); CHLORIDE LEVEL 100 MEQ/L (98-107); CREATININE FOR GFR 1.31 MG/DL (0.70-1.30); GLOMERULAR FILTRATION RATE 58.8 (>49); GLUCOSE, FASTING 85 MG/DL (70-100); POTASSIUM SERUM 4.3 MEQ/L (3.5-5.1); SODIUM LEVEL 137 MEQ/L (136-145); TOTAL PROTEIN 7.4 GM/DL (6.4-8.2)
== END ==
LOC: M LABDRAW1 16:06
DX: I50.42 Chronic combined systolic (congestive) and diastolic (congestive) heart failure (principal)

== ENCOUNTER → 2017-11-29 | Outpatient (REF) | payer OTHER ==
[2017-11-29 14:16] LABS: BASO # 0.1 10^3/uL (0.0-0.2); BASO % 0.6 % (0.0-1.0); EOS # 0.3 10^3/uL (0.0-0.50); EOS % 3.3 % (0.0-3.0); HEMATOCRIT 41.2 % (42.0-52.0); HEMOGLOBIN 13.2 g/dl (14.0-18.0); IMMATURE GRANULOCYTE % 0.5 % (0-3.0); LYMPH # 2.8 10^3/uL (1.5-4.5); LYMPH % 32.7 % (24.0-44.0); MEAN CORPUSCULAR HEMOGLOBIN 28.8 pg (27.0-33.0); MONO # 0.7 10^3/uL (0.0-0.8); NEUTROPHILS # 4.6 10^3/uL (1.8-7.7); NEUTROPHILS % 54.9 % (36.0-66.0); PLATELET COUNT, AUTOMATED 269 10^3/uL (150-450); RED BLOOD COUNT 4.58 10^6/uL (4.30-6.10); RED CELL DISTRIBUTION WIDTH 16.5 % (11.5-14.5); WHITE BLOOD COUNT 8.5 10^3/uL (4.0-10.0)
[2017-11-29 14:31] LABS: ALBUMIN/GLOBULIN RATIO 1.08 (1.00-1.93); ALKALINE PHOSPHATASE 94 U/L (45-117); ALT/SGPT 42 U/L (12-78); ANION GAP 4 MEQ/L (8-16); AST/SGOT 21 U/L (7-37); BILIRUBIN,TOTAL 0.7 MG/DL (0.2-1.0); BLOOD UREA NITROGEN 34 MG/DL (7-18); CALCIUM LEVEL 9.2 MG/DL (8.8-10.2); CARBON DIOXIDE LEVEL 28 MEQ/L (21-32); CHLORIDE LEVEL 106 MEQ/L (98-107); CREATININE FOR GFR 1.39 MG/DL (0.70-1.30); GLOMERULAR FILTRATION RATE 54.9 (>49); GLUCOSE, FASTING 92 MG/DL (70-100); SODIUM LEVEL 138 MEQ/L (136-145); TOTAL PROTEIN 7.7 GM/DL (6.4-8.2)
[2017-11-29 14:36] LABS: ESTIMATED AVERAGE GLUCOSE 131 MG/DL (60-110); HEMOGLOBIN A1c 6.2 %
== END ==
LOC: M SFHCSACK 09:58
DX: I50.9 Heart failure, unspecified (principal); R74.8 Abnormal levels of other serum enzymes; R73.09 Other abnormal glucose

== ENCOUNTER → 2018-02-14 | Outpatient (REF) | payer OTHER ==
[2018-02-14 12:05] LABS: HEMATOCRIT 43.1 % (42.0-52.0); MEAN CORPUSCULAR HEMOGLOBIN 29.5 pg (27.0-33.0); MEAN CORPUSCULAR HGB CONC 32.5 g/dl (32.0-36.5); MEAN CORPUSCULAR VOLUME 90.9 fl (80.0-96.0); PLATELET COUNT, AUTOMATED 260 10^3/uL (150-450); RED BLOOD COUNT 4.74 10^6/uL (4.30-6.10); RED CELL DISTRIBUTION WIDTH 13.7 % (11.5-14.5); WHITE BLOOD COUNT 8.6 10^3/uL (4.0-10.0)
[2018-02-14 12:41] LABS: ALBUMIN 3.7 GM/DL (3.2-5.2); ANION GAP 7 MEQ/L (8-16); BLOOD UREA NITROGEN 21 MG/DL (7-18); CALCIUM LEVEL 9.1 MG/DL (8.8-10.2); CARBON DIOXIDE LEVEL 28 MEQ/L (21-32); CHLORIDE LEVEL 104 MEQ/L (98-107); CREATININE FOR GFR 1.29 MG/DL (0.70-1.30); GLOMERULAR FILTRATION RATE 59.7 (>49); GLUCOSE, FASTING 81 MG/DL (70-100); PHOSPHORUS LEVEL 2.9 MG/DL (2.5-4.9); POTASSIUM SERUM 4.3 MEQ/L (3.5-5.1); SODIUM LEVEL 139 MEQ/L (136-145)
== END ==
LOC: M LABDRAW1 11:38
DX: I48.3 Typical atrial flutter (principal); I50.32 Chronic diastolic (congestive) heart failure

== ENCOUNTER → 2018-03-08 | Outpatient (REF) | payer OTHER ==
[2018-03-08 14:05] LABS: THYROXINE (T4) 13.6 UG/DL (4.5-12.0)
== END ==
LOC: M LABDRAW1 13:04
DX: I48.3 Typical atrial flutter (principal)

== ENCOUNTER → 2018-03-13 | Outpatient (CLI) | payer OTHER ==
[2018-03-13 16:40] LABS: BASO # 0.1 10^3/uL (0.0-0.2); BASO % 0.9 % (0.0-1.0); EOS # 0.2 10^3/uL (0.0-0.50); EOS % 2.2 % (0.0-3.0); HEMATOCRIT 43.6 % (42.0-52.0); HEMOGLOBIN 14.3 g/dl (13.5-17.5); IMMATURE GRANULOCYTE % 0.3 % (0-3.0); LYMPH # 2.3 10^3/uL (1.5-4.5); LYMPH % 23.5 % (24.0-44.0); MEAN CORPUSCULAR HEMOGLOBIN 29.6 pg (27.0-33.0); MEAN CORPUSCULAR HGB CONC 32.8 g/dl (32.0-36.5); MEAN CORPUSCULAR VOLUME 90.3 fl (80.0-96.0); MONO # 0.7 10^3/uL (0.0-0.8); MONO % 6.9 % (0.0-5.0); NEUTROPHILS # 6.4 10^3/uL (1.8-7.7); NEUTROPHILS % 66.2 % (36.0-66.0); PLATELET COUNT, AUTOMATED 242 10^3/uL (150-450); RED BLOOD COUNT 4.83 10^6/uL (4.30-6.10); RED CELL DISTRIBUTION WIDTH 13.8 % (11.5-14.5); WHITE BLOOD COUNT 9.6 10^3/uL (4.0-10.0)
[2018-03-13 16:50] LABS: ALBUMIN 3.9 GM/DL (3.2-5.2); ALBUMIN/GLOBULIN RATIO 1.05 (1.00-1.93); ALKALINE PHOSPHATASE 90 U/L (45-117); ALT/SGPT 33 U/L (12-78); ANION GAP 8 MEQ/L (8-16); AST/SGOT 35 U/L (7-37); BILIRUBIN,TOTAL 0.8 MG/DL (0.2-1.0); BLOOD UREA NITROGEN 26 MG/DL (7-18); CALCIUM LEVEL 8.9 MG/DL (8.8-10.2); CARBON DIOXIDE LEVEL 26 MEQ/L (21-32); CHLORIDE LEVEL 108 MEQ/L (98-107); CREATININE FOR GFR 1.53 MG/DL (0.70-1.30); GLUCOSE, FASTING 91 MG/DL (70-100); POTASSIUM SERUM 4.5 MEQ/L (3.5-5.1); SODIUM LEVEL 142 MEQ/L (136-145); TOTAL PROTEIN 7.6 GM/DL (6.4-8.2)
[2018-03-13 16:55] LABS: ESTIMATED AVERAGE GLUCOSE 126 MG/DL (60-110)
== END ==
LOC: M SMT 15:10
DX: I50.9 Heart failure, unspecified (principal); N17.9 Acute kidney failure, unspecified; R73.09 Other abnormal glucose
CPT/HCPCS: 80053

== ENCOUNTER → 2018-03-21 | Outpatient (REF) | payer OTHER | LOC: M SFHCSACK 10:19 | DX: N18.3 Chronic kidney disease, stage 3 (moderate) (principal) ==

== ENCOUNTER → 2018-03-21 | Outpatient (CLI) | payer OTHER | LOC: M SFHCSACK 10:22 | DX: N18.3 Chronic kidney disease, stage 3 (moderate) (principal) | CPT/HCPCS: 36415 ==

== ENCOUNTER → 2018-09-19 | Outpatient (CLI) | payer OTHER ==
[~2018-09-19] MED LIST changes: -LASI20TA PO; +LASI20TA3 PO; -LISI2.5T3 PO; +LISI2.5T5 PO
[2018-09-19 13:22] LABS: BASO # 0.1 10^3/uL (0.0-0.2); BASO % 0.8 % (0.0-1.0); EOS # 0.3 10^3/uL (0.0-0.50); EOS % 2.7 % (0.0-3.0); HEMATOCRIT 45.6 % (42.0-52.0); HEMOGLOBIN 14.4 g/dl (13.5-17.5); LYMPH # 2.6 10^3/uL (1.5-4.5); LYMPH % 28.3 % (24.0-44.0); MEAN CORPUSCULAR HEMOGLOBIN 28.1 pg (27.0-33.0); MEAN CORPUSCULAR HGB CONC 31.6 g/dl (32.0-36.5); MEAN CORPUSCULAR VOLUME 89.1 fl (80.0-96.0); MONO # 0.8 10^3/uL (0.0-0.8); MONO % 9.2 % (0.0-5.0); NEUTROPHILS # 5.4 10^3/uL (1.8-7.7); NEUTROPHILS % 58.7 % (36.0-66.0); PLATELET COUNT, AUTOMATED 238 10^3/uL (150-450); RED BLOOD COUNT 5.12 10^6/uL (4.30-6.10); WHITE BLOOD COUNT 9.1 10^3/uL (4.0-10.0)
[2018-09-19 13:27] LABS: ALBUMIN 3.6 GM/DL (3.2-5.2); BILIRUBIN,TOTAL 0.4 MG/DL (0.2-1.0); CALCIUM LEVEL 9.2 MG/DL (8.8-10.2); CHOLESTEROL RISK RATIO 5.78 (<5); CREATININE FOR GFR 1.47 MG/DL (0.70-1.30); GLOMERULAR FILTRATION RATE 51.3 (>49); POTASSIUM SERUM 4.8 MEQ/L (3.5-5.1)
[2018-09-19 13:36] LABS: TOTAL 25(OH) VITAMIN D 29.7 NG/ML (30.0-100.0)
[2018-09-19 14:06] LABS: MAU/CREAT RATIO 5.7 MCG/MG (0.0-30.0)
[2018-09-19 14:25] LABS: HEMOGLOBIN A1c 6.1 %
== END ==
LOC: M WUC 08:58
PROVIDERS: ATTEND Physician Assistant
DX: Z13.220 Encounter for screening for lipoid disorders (principal); Z13.21 Encounter for screening for nutritional disorder; I50.9 Heart failure, unspecified; N18.3 Chronic kidney disease, stage 3 (moderate); R73.09 Other abnormal glucose

== ENCOUNTER → 2018-09-19 | Outpatient (CLI) | payer OTHER ==
[2018-09-19 13:26] LABS: ALBUMIN 3.5 GM/DL (3.2-5.2); BILIRUBIN,DIRECT 0.1 MG/DL (0.0-0.2); BILIRUBIN,TOTAL 0.4 MG/DL (0.2-1.0)
== END ==
LOC: M WUC 09:05
PROVIDERS: ATTEND Physician Assistant
DX: I48.3 Typical atrial flutter (principal)

== ENCOUNTER → 2018-12-19 | Outpatient (REF) | payer OTHER ==
[~2018-12-19] MED LIST changes: +LISI-1046 PO; -LISI2.5T5 PO
[2018-12-19 14:04] LABS: BASO # 0.1 10^3/uL (0.0-0.2); BASO % 0.8 % (0.0-1.0); EOS # 0.2 10^3/uL (0.0-0.50); EOS % 2.5 % (0.0-3.0); HEMATOCRIT 45.4 % (42.0-52.0); HEMOGLOBIN 14.5 g/dl (13.5-17.5); LYMPH # 2.9 10^3/uL (1.5-4.5); LYMPH % 34.6 % (24.0-44.0); MEAN CORPUSCULAR HEMOGLOBIN 28.1 pg (27.0-33.0); MEAN CORPUSCULAR HGB CONC 31.9 g/dl (32.0-36.5); MONO # 0.7 10^3/uL (0.0-0.8); MONO % 8.4 % (0.0-5.0); NEUTROPHILS # 4.5 10^3/uL (1.8-7.7); NEUTROPHILS % 53.5 % (36.0-66.0); PLATELET COUNT, AUTOMATED 300 10^3/uL (150-450); RED BLOOD COUNT 5.16 10^6/uL (4.30-6.10); WHITE BLOOD COUNT 8.5 10^3/uL (4.0-10.0)
[2018-12-19 14:16] LABS: ALBUMIN 3.8 GM/DL (3.2-5.2); BILIRUBIN,TOTAL 0.5 MG/DL (0.2-1.0); CALCIUM LEVEL 9.6 MG/DL (8.8-10.2); CHOLESTEROL RISK RATIO 5.4 (<5); CREATININE FOR GFR 1.37 MG/DL (0.70-1.30); GLOMERULAR FILTRATION RATE 55.7 (>49); POTASSIUM SERUM 5.2 MEQ/L (3.5-5.1); TOTAL PROTEIN 7.5 GM/DL (6.4-8.2)
[2018-12-19 14:20] LABS: TOTAL 25(OH) VITAMIN D 52.3 NG/ML (30.0-100.0)
== END ==
LOC: M SFHCSACK 09:40
PROVIDERS: ATTEND Physician Assistant
DX: I50.9 Heart failure, unspecified (principal); E78.2 Mixed hyperlipidemia; R73.09 Other abnormal glucose; Z12.5 Encounter for screening for malignant neoplasm of prostate; E55.9 Vitamin D deficiency, unspecified

== ENCOUNTER → 2019-02-06 | Outpatient (REF) | payer OTHER, MEDICARE ==
[2019-02-06 18:44] LABS: BASO # 0.1 10^3/uL (0.0-0.2); BASO % 0.9 % (0.0-1.0); EOS # 0.3 10^3/uL (0.0-0.50); EOS % 3.4 % (0.0-3.0); HEMATOCRIT 45.5 % (42.0-52.0); HEMOGLOBIN 14.3 g/dl (13.5-17.5); LYMPH # 2.8 10^3/uL (1.5-4.5); LYMPH % 31.8 % (24.0-44.0); MEAN CORPUSCULAR HEMOGLOBIN 28.9 pg (27.0-33.0); MEAN CORPUSCULAR HGB CONC 31.4 g/dl (32.0-36.5); MEAN CORPUSCULAR VOLUME 91.9 fl (80.0-96.0); MONO # 0.7 10^3/uL (0.0-0.8); MONO % 8.2 % (0.0-5.0); NEUTROPHILS # 4.9 10^3/uL (1.8-7.7); NEUTROPHILS % 55.3 % (36.0-66.0); PLATELET COUNT, AUTOMATED 266 10^3/uL (150-450); RED BLOOD COUNT 4.95 10^6/uL (4.30-6.10); WHITE BLOOD COUNT 8.9 10^3/uL (4.0-10.0)
== END ==
LOC: M LAB REF 17:13
PROVIDERS: ATTEND Internal Medicine Nephrology
DX: I11.0 Hypertensive heart disease with heart failure (principal); N18.3 Chronic kidney disease, stage 3 (moderate); I50.32 Chronic diastolic (congestive) heart failure

== ENCOUNTER → 2019-03-27 | Outpatient (CLI) | payer MEDICARE, OTHER, MEDICAID ==
--- NOTE | 2019-03-27 12:45 | REP ---
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 The joint spaces are otherwise unremarkable. Mineralization is normal. There are no calcifications. There is no fracture or dislocation. I suspect there is soft tissue edema over the dorsum. Impression: Scaphoid trapezial osteoarthritis. Soft tissue edema over the dorsum. Electronically Signed by Anupam Whipple MD 03/27/2019 12:37 P
--- NOTE | 2019-03-27 12:46 | REP ---
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 The joint spaces are otherwise unremarkable. Mineralization is normal. There are no calcifications or foreign bodies. No fracture or dislocation. Impression: Scaphoid trapezial osteoarthritis. Otherwise, negative right hand. Electronically Signed by Anupam Whipple MD 03/27/2019 12:38 P
== END ==
LOC: M WUC 11:33
PROVIDERS: ATTEND Physician Assistant
DX: M19.041 Primary osteoarthritis, right hand (principal)

== ENCOUNTER → 2019-05-23 | Outpatient (REF) | payer MEDICARE ==
[~2019-05-23] MED LIST changes: -BISO5TAB5 PO; +BISO5TAB9 PO; +METO1TAB87 PO; +SIMV20TA2 PO
[2019-05-23 12:56] LABS: BASO # 0.1 10^3/uL (0.0-0.2); BASO % 0.7 % (0.0-1.0); EOS # 0.2 10^3/uL (0.0-0.5); EOS % 2.6 % (0.0-3.0); HEMOGLOBIN 16.1 g/dl (13.5-17.5); LYMPH # 2.7 10^3/uL (1.5-5.0); LYMPH % 32.5 % (24.0-44.0); MEAN CORPUSCULAR HEMOGLOBIN 28.4 pg (27.0-33.0); MEAN CORPUSCULAR HGB CONC 32.2 g/dl (32.0-36.5); MEAN CORPUSCULAR VOLUME 88.3 fl (80.0-96.0); MONO # 0.6 10^3/uL (0.0-0.8); MONO % 7.3 % (0.0-5.0); NEUTROPHILS # 4.6 10^3/uL (1.5-8.5); NEUTROPHILS % 56.4 % (36.0-66.0); PLATELET COUNT, AUTOMATED 270 10^3/uL (150-450); RED BLOOD COUNT 5.66 10^6/uL (4.30-6.10); WHITE BLOOD COUNT 8.2 10^3/uL (4.0-10.0)
[2019-05-23 13:09] LABS: BILIRUBIN,TOTAL 0.4 MG/DL (0.2-1.0); CALCIUM LEVEL 9.9 MG/DL (8.8-10.2); CREATININE FOR GFR 1.31 MG/DL (0.70-1.30); FREE T4 1.04 NG/DL (0.76-1.46); GLOMERULAR FILTRATION RATE 58.5 (>49); POTASSIUM SERUM 4.9 MEQ/L (3.5-5.1); THYROID STIMULATING HORMONE 1.37 uIU/ML (0.358-3.740); TOTAL PROTEIN 7.7 GM/DL (6.4-8.2)
[2019-05-23 13:31] LABS: INR 1.12; PARTIAL THROMBOPLASTIN TIME 34.8 SECONDS (25.0-38.4); PROTHROMBIN TIME 14.1 SECONDS (11.8-14.0)
== END ==
LOC: M SFHCPLAZ 09:50
PROVIDERS: ATTEND Family Medicine
DX: N18.3 Chronic kidney disease, stage 3 (moderate) (principal); E78.2 Mixed hyperlipidemia; I50.32 Chronic diastolic (congestive) heart failure
CPT/HCPCS: 36415; 80053; 84439; 84443; 85025; 85610; 85730; G0463

== ENCOUNTER 2019-05-29 13:19 | Day surgery (SDC) | payer MEDICAID, MEDICARE ==
[~2019-05-29] VITALS: Ht 177.8 cm; Wt 84.4 kg
[~2019-05-29 13:19] MED LIST changes: +LIDOCAINE 1% MDV 20ML VIAL SQ PRN; +LR 1,000 ML IV ONE
[2019-05-29] MEDS ORDERED: LIDOCAINE 1% SDV INJ 30 ML VIAL As Ordered ONE (16:23)
[2019-05-29] MEDS ORDERED: BUPIVACAINE HCL 0.25% 30 ML VIAL As Ordered ONE (16:23)
[2019-05-29] MEDS ORDERED: ONDANSETRON 4MG/2ML VIAL (J2405) As Ordered ONE (16:55)
[2019-05-29] MEDS ORDERED: SUGAMMADEX SODIUM 500 MG/5 ML VIAL (BRIDION) As Ordered ONE (16:55)
[2019-05-29] MEDS ORDERED: fentaNYL 250 MCG/5 ML INJECTION (J3010) As Ordered ONE (16:55)
[2019-05-29] MEDS ORDERED: LIDOCAINE 2% INJ 100 MG/5 ML SDV (FOR ANES.) As Ordered ONE (16:55)
[2019-05-29] MEDS ORDERED: METOCLOPRAMIDE INJ 10MG/2ML VIAL (J2765) As Ordered ONE (16:55)
[2019-05-29] MEDS ORDERED: MIDAZOLAM INJ 2 MG/2 ML VIAL (J2250) As Ordered ONE (16:55)
[2019-05-29] MEDS ORDERED: ROCURONIUM BROMIDE 50 MG/5 ML VIAL As Ordered ONE ×2 (16:55→17:02)
[2019-05-29] MEDS ORDERED: KETOROLAC 60 MG/2 ML VIAL (J1885) As Ordered ONE (16:55)
[2019-05-29] MEDS ORDERED: dexameTHASONE 4 MG/ML 1ML VIAL (J1100) As Ordered ONE (16:55)
[2019-05-29] MEDS ORDERED: PROPOFOL 200 MG/20 ML VIAL As Ordered ONE ×2 (16:55→18:33)
[2019-05-29] MEDS ORDERED: PHENYLephrine HCL 500 MCG/5 ML (100MCG/ML) SYRINGE (J2370) As Ordered ONE (17:03)
[2019-05-29] MEDS ORDERED: ACETAMINOPHEN 1000MG 100ML IV BTL (OFIRMEV) (J0131 PER 10MG) As Ordered ONE ×2 (17:04→19:47)
[2019-05-29] MEDS ORDERED: ONDANSETRON 4MG/2ML VIAL (J2405) IV PRN ×2 (19:00→19:15)
[2019-05-29] MEDS ORDERED: PERCOCET 5MG/325MG TAB PO PRN (19:00)
[2019-05-29] MEDS ORDERED: METOCLOPRAMIDE INJ 10MG/2ML VIAL (J2765) IV PRN (19:00)
[2019-05-29] MEDS ORDERED: LR 1,000 ML IV SCH (19:00)
[2019-05-29] MEDS ORDERED: fentaNYL 100 MCG/2 ML INJECTION (J3010) IV PRN (19:00)
[2019-05-29] MEDS ORDERED: NORCO, ANEXSIA 5/325MG TABLET (HYDROcodone/ACETAMINOPHEN) PO PRN (19:15)
[2019-05-29 20:40] VITALS: BP 137/79
[2019-05-29] MEDS ORDERED: KETOROLAC 30 MG/ML VIAL (J1885) IV SCH (23:00)
--- NOTE | 2019-06-04 16:12 | ROOPDOC ---
[facility] Report Of Operation Report of Operation DATE OF PROCEDURE: 05/29/19 PREPROCEDURE DIAGNOSES: Right inguinal hernia. POSTPROCEDURE DIAGNOSES: Bilateral direct inguinal hernia, PROCEDURE: Robotic-assisted laparoscopic transabdominal preperitoneal repair of bilateral direct inguinal hernia with mesh. SURGEON: Kvng Carpenter MD SANITATION DIRECTOR: ANESTHESIA: Gen. anesthesia. ESTIMATED BLOOD LOSS: Approximately 20 mL. COMPLICATIONS: None. REMARKS: 64-year-old male with a large right inguinal hernia that his long- standing desires repair of the hernia due to increasing discomfort from this.. PROCEDURE NOTE: Large direct inguinal hernia with a fairly large defect on the right side. Small indirect defect and small cord lipoma on the right side. There is a small direct inguinal hernia in the left side patient is not symptomatic with this also repaired.. DESCRIPTION OF PROCEDURE: Patient received 2 g of Ancef IV preoperatively for wound prophylaxis. Patient was brought to the operating room, placed supine on the operating table. Compression boots placed in both lower extremities for DVT prophylaxis. After adequate general anesthesia started, a chacon catheter to decompress his urinary bladder was placed without difficulty. His abdomen and groin/pelvic area then prepped and draped in the usual sterile fashion. We paused for a surgical timeout using both pre-incision safety checklist to verify correct patient, procedure site and additional clinical information prior to beginning the procedure. Externally he has a tense, fixed protrusion from from the groin which on my exam, I thought was extending towards the scrotum. Once asleep this appears more as a large direct hernia. Entry to the abdomen done through a small incision 2 cms above the umbilical skin cleft. A Veress needle is inserted on a controlled fashion. CO2 insufflation started to pressure 15 mmHg. Using the same incision a 8 mm robotic optical trocar was then placed under direct vision of laparoscope. The insertion site was inspected for injury and none was found. Patient was then positioned on a Trendelenburg position with the symptomatic (right) side tilted upwards for adequate view of the hernia defect. 2 working ports placed to the right and left of the umbilicus along the same line. The [employer] robot tower was then positioned in between the patient's legs and the trochars docked onto the robot. I used a 30 8 mm camera, forced bipolar forceps attached to a bipolar cord and laparoscopic alexis attached to a monopolar cord on my right hand. I then unscrubbed and took control of the camera and the laparoscopic instruments at the surgeon's console. There were loose small bowel within the hernia defect that easily reduced back in once pneumoperitoneum was then established as well as with placing him in slight Trendelenburg position. Fairly large defect on the direct side with a cavernous protrusion through the defect. On visualization of the left side where similarly is a smaller direct inguinal hernia defect. The peritoneum was opened up about 5 cm above the superior edge of the fascial defect of the inguinal hernia starting at the medial umbilical ligament going in an arc-like fashion laterally towards the level of the anterior superior iliac spine. The peritoneum was then dissected mostly bluntly away from the abdominal wall to open up the preperitoneal space. This was extended to the space of Retzius between the bladder and the abdominal wall and pubic tubercle to expose the arc of the pubic tubercle as well as the Ramesh's ligament. The preperitoneal dissection was extended partly superiorly but mostly inferiorly towards the iliopubic tract laterally and beyond the Ramesh's ligament and pubic tubercle inferiorly. The lower flap of the peritoneum was adequately mobilized away from the preperitoneal tissue. On approaching the direct inguinal hernia defect the pseudosac was pulled back and plicated to the lacunar ligament with 2-0 Vloc. There was some bulky preperitoneal adipose tissue that was reduced back away from the defect. There was only a small tongue of peritoneum inserting into the internal opening of the inguinal canal. A small cord lipoma was also found and reduced back to the preperitoneal plane. I chose a 10 x 15 cm Parietex ProGrip self fixating mesh. This was folded with the center of the mesh marked for positioning. This was then delivered intra-abdominally through one of the trochars. In a controlled fashion this was positioned into the preperitoneal space with the medial side towards the pubic tubercle and the previously marked center of the mesh medial to the inferior epigastric vessels to get a better coverage for the direct hernia defect.. The mesh has adequate coverage for the direct hernia spaces as well as the femoral hernia space. This was carefully pressed onto the abdominal wall and made sure that it was flattened up. The peritoneal flap was then closed with a running suture of 2-0 V LOC and the excess peritoneum from the hernia sac was incorporated with a closure of the peritoneum. I then turned my attention towards the left side of the abdomen. In a similar fashion, a peritoneal flap was created to expose the myopectineal orifice on that side. There was no indirect inguinal hernia component. There is a small cord lipoma that I found and was removed. The direct defect was comparatively small compared to the other side. A similar 10 x 15 cm Parietex Progrip self fixating mesh was placed with is the medial side of the mesh overlapping the previously placed mesh in the right side. The peritoneal flap was likewise closed with a running suture of 20V LOC. The abdomen was then deflated. All ports were removed. The robot was undocked. I scrubbed back in. The incisions were closed with 4-0 Monocryl in subcuticular fashion. Dermabond was used for wound coverage. The patient was then properly awakened, extubated. His Chacon catheter was removed. No bleeding noted in the Chacon bag. He was brought to the recovery room stable. All counts of sponges and instruments were verified correct. KVNG CARPENTER MD Jun 04, 2019 16:12
== END 2019-05-29 20:41 | disposition home or self-care (01) ==
LOC: M SDC 13:19
PROVIDERS: ATTEND Surgery
DX: K40.20 Bilateral inguinal hernia, without obstruction or gangrene, not specified as recurrent (principal); I48.91 Unspecified atrial fibrillation; I10 Essential (primary) hypertension; N18.3 Chronic kidney disease, stage 3 (moderate); E78.5 Hyperlipidemia, unspecified; I50.9 Heart failure, unspecified; Z79.01 Long term (current) use of anticoagulants; Z79.899 Other long term (current) drug therapy; F17.210 Nicotine dependence, cigarettes, uncomplicated
CPT/HCPCS: 49650; C1781; J0131; J0690; J1100; J1885; J2250; J2370; J2405; J2765; J3010

== ENCOUNTER → 2019-06-24 | Outpatient (REF) | payer MEDICARE ==
[~2019-06-24] MED LIST changes: -LIDOCAINE 1% MDV 20ML VIAL SQ PRN; -LR 1,000 ML IV ONE
[2019-06-24 14:54] LABS: BASO # 0.1 10^3/uL (0.0-0.2); BASO % 0.9 % (0.0-1.0); EOS # 0.3 10^3/uL (0.0-0.5); EOS % 3.4 % (0.0-3.0); HEMATOCRIT 44.4 % (42.0-52.0); HEMOGLOBIN 14.2 g/dl (13.5-17.5); LYMPH # 2.4 10^3/uL (1.5-5.0); LYMPH % 30.9 % (24.0-44.0); MEAN CORPUSCULAR HEMOGLOBIN 27.8 pg (27.0-33.0); MEAN CORPUSCULAR VOLUME 86.9 fl (80.0-96.0); MONO # 0.7 10^3/uL (0.0-0.8); MONO % 9.4 % (0.0-5.0); NEUTROPHILS # 4.2 10^3/uL (1.5-8.5); NEUTROPHILS % 55.1 % (36.0-66.0); PLATELET COUNT, AUTOMATED 300 10^3/uL (150-450); RED BLOOD COUNT 5.11 10^6/uL (4.30-6.10); WHITE BLOOD COUNT 7.7 10^3/uL (4.0-10.0)
[2019-06-24 15:27] LABS: ALBUMIN 3.5 GM/DL (3.2-5.2); ALT/SGPT 17 U/L (12-78); BILIRUBIN,TOTAL 0.7 MG/DL (0.2-1.0); BLOOD UREA NITROGEN 30 MG/DL (7-18); CALCIUM LEVEL 9.4 MG/DL (8.8-10.2); CARBON DIOXIDE LEVEL 28 MEQ/L (21-32); CHLORIDE LEVEL 107 MEQ/L (98-107); CHOLESTEROL LEVEL 161 MG/DL (<200); CREATININE FOR GFR 1.21 MG/DL (0.70-1.30); GLOMERULAR FILTRATION RATE > 60.0 (>49); GLUCOSE, FASTING 91 MG/DL (70-100); HDL CHOLESTEROL 46 MG/DL (>40); LDL CHOLESTEROL 102 MG/DL (<100); NON-HDL-C 115 MG/DL; POTASSIUM SERUM 4.9 MEQ/L (3.5-5.1); SODIUM LEVEL 138 MEQ/L (136-145); TRIGLYCERIDES LEVEL 65 MG/DL (<150)
[2019-06-24 15:31] LABS: TOTAL 25(OH) VITAMIN D 55.6 NG/ML (30.0-100.0)
== END ==
LOC: M SFHCSACK 08:36
PROVIDERS: ATTEND Physician Assistant
DX: E78.2 Mixed hyperlipidemia (principal); E55.9 Vitamin D deficiency, unspecified; N18.3 Chronic kidney disease, stage 3 (moderate); I50.9 Heart failure, unspecified

== ENCOUNTER → 2020-01-21 | Outpatient (CLI) | payer MEDICARE, MEDICAID ==
[~2020-01-21] MED LIST changes: +BISO5TAB14 PO; -BISO5TAB9 PO; -DIGO0.25 PO; +DIGO0.253 PO; -LISI-1046 PO; +LISI2.5T2 PO; -SIMV20TA2 PO; +SIMV20TA22 PO
[2020-01-21 14:14] LABS: BASO # 0.1 10^3/uL (0.0-0.2); BASO % 0.8 % (0.0-1.0); EOS # 0.2 10^3/uL (0.0-0.5); EOS % 2.9 % (0.0-3.0); HEMATOCRIT 49.1 % (42.0-52.0); LYMPH % 37.6 % (24.0-44.0); MEAN CORPUSCULAR HEMOGLOBIN 28.2 pg (27.0-33.0); MEAN CORPUSCULAR HGB CONC 32.6 g/dl (32.0-36.5); MEAN CORPUSCULAR VOLUME 86.4 fl (80.0-96.0); MONO # 0.7 10^3/uL (0.0-0.8); MONO % 8.8 % (0.0-5.0); NEUTROPHILS % 49.5 % (36.0-66.0); PLATELET COUNT, AUTOMATED 221 10^3/uL (150-450); RED BLOOD COUNT 5.68 10^6/uL (4.30-6.10)
[2020-01-21 14:43] LABS: HEMOGLOBIN A1c 6.2 %
[2020-01-21 14:55] LABS: ALBUMIN 3.8 GM/DL (3.2-5.2); BILIRUBIN,TOTAL 0.7 MG/DL (0.2-1.0); CALCIUM LEVEL 9.1 MG/DL (8.8-10.2); CHOLESTEROL RISK RATIO 3.893 (<5); CREATININE FOR GFR 1.3 MG/DL (0.70-1.30); POTASSIUM SERUM 4.4 MEQ/L (3.5-5.1); TOTAL 25(OH) VITAMIN D 63.2 NG/ML (30.0-100.0); TOTAL PROTEIN 7.2 GM/DL (6.4-8.2)
== END ==
LOC: M WUC 10:55
PROVIDERS: ATTEND Physician Assistant
DX: E78.2 Mixed hyperlipidemia (principal); E55.9 Vitamin D deficiency, unspecified; R73.09 Other abnormal glucose; R74.8 Abnormal levels of other serum enzymes; I50.32 Chronic diastolic (congestive) heart failure; Z12.5 Encounter for screening for malignant neoplasm of prostate
CPT/HCPCS: 36415; 80053; 80061; 82306; 83036; 85025; G0103

== ENCOUNTER → 2020-02-25 | Outpatient (CLI) | payer MEDICARE, MEDICAID ==
--- NOTE | 2020-02-25 16:06 | REP ---
REASON FOR EXAM: History of kidney disease. FINDINGS: Multiple ultrasonographic images of the right kidney show the right kidney to measure 11.3 x 5.9 x 5.1 cm. The renal cortical echotexture is unremarkable. There are no masses. There is good corticomedullary differentiation. There is no hydronephrosis. There are no perinephric fluid collections. Multiple ultrasonographic images of the left kidney show the left kidney to measure 10.8 x 5.5 x 5.5 cm. The renal cortical echotexture is unremarkable. There are no masses. There is good corticomedullary differentiation. There is no hydronephrosis. There are no perinephric fluid collections. IMPRESSION: Unremarkable renal ultrasonography. Doppler of the urinary bladder was obtained to asses for a urojet phenomena which was not seen at either right or left UV junction. Electronically Signed by Deuce Abdi DO 02/25/2020 05:03 P
== END ==
LOC: M RAD 13:54
PROVIDERS: ATTEND Internal Medicine Nephrology
DX: N18.3 Chronic kidney disease, stage 3 (moderate) (principal)

== ENCOUNTER → 2020-08-12 | Outpatient (REF) | payer MEDICARE, MEDICAID ==
[2020-08-12 18:00] LABS: BACTERIA, URINE AUTO NEGATIVE (NEGATIVE); RBC, URINE AUTO 0 /HPF (0-3); SQUAMOUS EPITHELIAL CELL UR AU 0 /HPF (0-6); WBC, URINE AUTO 1 /HPF (0-3)
== END ==
LOC: M LAB REF 16:49
PROVIDERS: ATTEND Internal Medicine Nephrology
DX: R31.29 Other microscopic hematuria (principal)

== ENCOUNTER → 2021-03-31 | Outpatient (REF) | payer MEDICARE ==
[~2021-03-31] MED LIST changes: +ASPI-569 PO; -ASPI81TAEC PO
[2021-03-31 15:03] LABS: BASO # 0.1 10^3/uL (0.0-0.2); BASO % 0.7 % (0.0-1.0); EOS # 0.2 10^3/uL (0.0-0.5); EOS % 2.3 % (0.0-3.0); HEMATOCRIT 52.6 % (42.0-52.0); HEMOGLOBIN 16.5 g/dl (13.5-17.5); LYMPH # 2.6 10^3/uL (1.5-5.0); LYMPH % 31.6 % (24.0-44.0); MEAN CORPUSCULAR HEMOGLOBIN 28.2 pg (27.0-33.0); MEAN CORPUSCULAR HGB CONC 31.4 g/dl (32.0-36.5); MEAN CORPUSCULAR VOLUME 89.9 fl (80.0-96.0); MONO # 0.8 10^3/uL (0.0-0.8); MONO % 9.6 % (2.0-8.0); NEUTROPHILS # 4.5 10^3/uL (1.5-8.5); NEUTROPHILS % 55.6 % (36.0-66.0); PLATELET COUNT, AUTOMATED 207 10^3/uL (150-450); RED BLOOD COUNT 5.85 10^6/uL (4.30-6.10); WHITE BLOOD COUNT 8.2 10^3/uL (4.0-10.0)
[2021-03-31 15:28] LABS: ALBUMIN 3.8 GM/DL (3.2-5.2); BILIRUBIN,TOTAL 0.5 MG/DL (0.2-1.0); CALCIUM LEVEL 9.5 MG/DL (8.8-10.2); CHOLESTEROL RISK RATIO 3.902 (<5); CREATININE FOR GFR 1.54 MG/DL (0.70-1.30); GLOMERULAR FILTRATION RATE 48.2 (>49); POTASSIUM SERUM 5.9 MEQ/L (3.5-5.1); THYROID STIMULATING HORMONE 1.65 uIU/ML (0.358-3.740); TOTAL PROTEIN 7.2 GM/DL (6.4-8.2)
== END ==
LOC: M SFHCADAM 08:09
PROVIDERS: ATTEND Family Medicine
DX: Z00.00 Encounter for general adult medical examination without abnormal findings (principal)

== ENCOUNTER → 2021-07-09 | Outpatient (CLI) | payer MEDICARE ==
[~2021-07-09] MED LIST changes: +ATEN50TA2 PO; +CHOL25TA8 PO; -DOXY100C PO; +DOXY100C3 PO; -LISI2.5T2 PO; +LISI2.5T9 PO
== END ==
LOC: M LABSMTC 09:53
PROVIDERS: ATTEND Anesthesiology
DX: Z01.812 Encounter for preprocedural laboratory examination (principal); Z20.822 Contact with and (suspected) exposure to COVID-19

== ENCOUNTER 2021-07-14 10:39 | Day surgery (SDC) | payer MEDICARE ==
[~2021-07-14] VITALS: Ht 177.8 cm; Wt 91.4 kg
[~2021-07-14 10:39] MED LIST changes: +LIDOCAINE 2% 100MG/5ML SDV (FOR ANES.) As Ordered ONE; +NS 1,000 ML IV ONE; +propofoL 200 MG/20 ML VIAL As Ordered ONE
--- OUTSIDE RECORDS SUMMARY | 2021-07-14 10:42 | CCD | Continuity of Care Document ---
Author Author Niels HATCH PA Organization Unknown Address [address], [address] [place] [address] Phone [phone] Care Team Providers Care Taxi Driver Name Role Phone Caitlin Lubin D.O. AUTM [phone] Problems Description No Information Available Social History Type Date Description Comments Sex Unknown ETOH Use Denies alcohol use Recreational Drug Use Denies Drug Use Tobacco Use Start: Unknown Smokes 1 Pack A Day X40 YRS Allergies, Adverse Reactions, Alerts Active Allergies Criticality Reaction | Severity Comments Date NKDA Unable to assess criticality 04/11/2019 Pork-Derived Products Unable to assess criticality 05/31/2021 Medications Active Medications SIG Qnty Indications Ordering Provide r Date Simvastatin 20mg Tablets Take 1 Tablet By Mouth Once Daily In The Evening For 90 Days Unkn own Eliquis 5mg Tablets Take 1 Tablet By Mouth Twice Daily Unknown Furosemide 20mg Tablets 1 by mouth every day Unknown Atenolol 50mg Tablets 1 tab by mouth twice a day Unknown Digoxin 250mcg Tablets Take 1 Tablet By Mouth Once Daily Suzanne Mcqueen, P.ALatesha 00 Vitamin D3 25mcg (1000 Ut) Tablets 1 by mouth every day Unknown Immunizations Description No Information Available Vital Signs Date Vital Result Comment 05/31/2021 11:34am BP Systolic 110 mmHg BP Diastolic 70 mmHg Body Temperature 98.3 F Height 70 inches 5'10" Weight 208.50 lb BMI (Body Mass Index) 29.9 kg/m2 [place] Body Weight 166 lb Weight 94.576 kg BSA (Body Surface Area) 2.12 m2 06/10/2019 10:01am BP Systolic 115 mmHg BP Diastolic 84 mmHg Height 70 inches 5'10" Weight 191.00 lb BMI (Body Mass Index) 27.4 kg/m2 [place] Body Weight 166 lb Weight 86.638 kg BSA (Body Surface Area) 2.05 m2 Results Description No Information Available Procedures Description No Information Available Medical Devices Description No Information Available Encounters Description No Information Available Assessments Description No Information Available Plan of Treatment No Information Available Functional Status Description No Information Available Mental Status Description No Information Available Referrals Refer to Reason for Referral Status Appt Date Kvng Carpenter MD COLONOSCOPY Scheduled 05/11/[address] [place], [place] [id number] [phone]
--- OUTSIDE RECORDS SUMMARY | 2021-07-14 10:42 | CCD | Continuity of Care Document ---
Author Organization Unknown Address Unknown Phone Unavailable Care Team Providers Care Power Brake Operator Name Role Phone Yohannes Bray MD AUTM [phone] Edna Deng MD AUTM [phone] Joey Arroyo MD AUTM [phone] Kayla Schultz AUTM [phone] Caitlin Gamboa DO AUTM [phone] Problems Active Problems Provider Date Chronic diastolic heart failure Niels Steven MD Onset: 1 10/01/2016 Persistent atrial fibrillation Niels Steven MD Onset: Electrocardiogram abnormal Niels Steven MD Onset: 2016 Chronic cor pulmonale Niels Steven MD Onset: 08/01/2017 Benign hypertensive heart disease with congestive card iac failure Niels Steven MD Onset: 08/01/2017 Atrial flutter Niels Steven MD Onset: 09/21/2017 Dietary management surveillance HOLGER Damon Onset: 02/19/2018 Drug-induced bradycardia HOLGER Damon Onset: 018 Substance abuse counseling HOLGER Damon Onset: 02/19 Tobacco user HOLGER Damon Onset: 02/20/2019 Paroxysmal atrial fibrillation HOLGER Damon Onset: 0 09/24/2019 Chronic cor pulmonale HOLGER Degroot Onset: 12/19/19 21 Social History Type Date Description Comments Sex Unknown ETOH Use Does not consume alcohol Tobacco Use Start: Unknown Patient is a current smoker, smo kes every day 10 or less/ day since age 17 Smoking Status Reviewed: 12/18/20 Patient is a current smoker, smokes every day 10 or less/ day since age 17 Exercise Type/Frequency Does housework 5 times a week Exercise Type/Frequency Walks daily Exercise Type/Frequency Does yardwork sporadical ly Exercise Limitations None Allergies and adverse reactions Active Allergies Criticality Reaction | Severity Comments Date NKDA Unable to assess criticality 08/01/2017 Pork-Derived Products Unable to assess criticality 05/31/2021 Medications Active Medications SIG Qnty Indications Ordering Provide r Date Digoxin 250mcg Tablets 1 by mouth every day 90tabs Niels Steven MD 12/18/2020 Vitamin D3 25mcg (1000 Ut) Tablets 1 by mouth every day Unknown 12/17/2020 Atenolol 50mg Tablets 1 by mouth twice a day 180tabs I48.0 Niels Steven MD 01/30/2020 Simvastatin 20mg Tablets 1 by mouth every day at bedtime Unknown 02/19/2019 Furosemide 20mg Tablets take 1 tablet by mouth once daily. hold for positional lightheadedness 90tabs Niels Steven MD 09/06/2017 Eliquis 5mg Tablets take one tablet by mouth twice daily 180tabs Niels Steven MD 07/31/2017 Immunizations Description No Information Available Vital Signs Date Vital Result Comment 12/18/2020 10:20am Weight 209.00 lb Home Weight 205lb Height 70 inches 5'10" BMI (Body Mass Index) 30.0 kg/m2 Heart Rate 94 /min BP Systolic Sitting 116 mmHg Ra, large cuff BP Diastolic Sitting 74 mmHg Ra, large cuff 05/01/2020 1:36pm Weight 193.00 lb Home Weight 191lb Height 70 inches 5'10" BMI (Body Mass Index) 27.7 kg/m2 Heart Rate 83 /min BP Systolic Sitting 100 mmHg large cuff, Ra BP Diastolic Sitting 58 mmHg large cuff, Ra Results Test Acquired Date Facility Test Result H/L Range Note CBC without Differential 03/31/2021 [facility] - not inter faced (315)- - White Blood Count 8.2 5.0-10.0 Red Blood Count 5.85 High 4.00-5.40 Platelets 207 172-450 Hemoglobin 16.5 Hematocrit 52.6 CMP 03/31/2021 [facility] - not interfaced (315)- - Albumin Serum/Plasma 3.8 Alt - SGPT 21 Calcium Ser/Plasma Mass/Vol 9.5 Carbon Dioxide Ser/Plasm 27 Chloride Serum/Plasma 110 Alkaline Phosphatase 77 Potassium 5.9 Protein Total 7.2 Sodium 142 Ast - Sgot 14 BUN - Urea Nitrogen 21 Glucose 90 83-110 Creatinine For GFR 1.54 Lipid Profile/Cardiac Risk Pro 03/31/2021 [facility] - not interfaced (315)- - Triglycerides 80 <150 Cholesterol 160 <200 HDL 41 >40.0 LDL Cholesterol 103 Chol/HDL Ratio 3.902 <5 Laboratory test finding 03/31/2021 [facility] - not interf aced (315)- - Thyroid Stimulating Hormone 1.650 Renal Profile 02/10/2021 [facility] (315)- - Glucose 111 High 70-106 Blood Urea Nitrogen 23.1 High 7-18 Creatinine 1.4 High 0.55-1.3 GFR (Calculated) 51 Low >60 Sodium 140.1 135-145 Potassium 3.86 3.5-5.5 Chloride 106.5 94-110 Carbon Dioxide 27.0 21-32 Calcium 9.8 8.5-10.1 Phosphorus 2.9 Albumin 4.2 2.5-4.9 CBC without Differential 02/10/2021 [facility] ([facility])- - White Blood Count 8.8 5.0-10.0 Red Blood Count 5.86 4.70-6.10 Platelets 215 172-450 Hemoglobin 17.2 14.0-18.0 Hematocrit 51.9 42.0-52.0 Laboratory test finding 02/10/2021 [facility] (315)- - Magnesium Level 2.06 1.6-2.6 Procedures Description No Information Available Medical Devices Description No Information Available Encounters Description No Information Available Assessments Description No Information Available Plan of Treatment Future Appointment(s):* 06/23/2021 10:15 am - HOLGER Degroot at Main Office 12/18/2020 - HOLGER Degroot* I48.92 Unspecified atrial flutter* Recommendations:* Increase digoxin to 250 mcg daily for 1 week Continue to monitor heart rate and patient agreeable to call the office and let us know how he tolerates this medication dose adjustment, at that time if he is feeling well we will continue with 250 mcg Continue atenolol at the current dosage Continue Eliquis as directed Decrease caffeine and nicotine Please alert the office if palpitations persist * I48.0 Paroxysmal atrial fibrillation * I27.81 Cor pulmonale (chronic)* Recommendations:* Continue furosemide as directed Please alert the office with the onset of any shortness of breath or lower extremity * I11.0 Hypertensive heart disease with heart failure* Recommendations:* Continue Eliquis as directed Advised patient to monitor blood pressures at home and to alert our office with readings >140/>90 or <100/<50 * I50.32 Chronic diastolic (congestive) heart failure* Recommendations:* Continue furosemide and atenolol at the current dosages Please alert our office with a weight gain of more than 3 pounds, onset of shortness of breath, or lower extremity edema * F17.210 Nicotine dependence, cigarettes, uncomplicated* Recommendations:* Advised patient on the negative consequences of continued tobacco abuse including but not limited to chronic bronchitis, emphysema, lung cancer, CAD, PR, CVA * R94.31 Abnormal electrocardiogram [ECG] [EKG]* Recommendations:* No further evaluation is needed at this time. * Z71.3 Dietary counseling and surveillance* Recommendations:* Recommended for patient to follow a more whole food diet. Advised patient to avoid overly processed foods and packaged foods. Advised patient to avoid sodas, juices and other liquid calories. Recommended at least 30 minutes of exercise 3 days a week. * All * New Medication:* Digoxin 250 mcg - 1 by mouth every day * Follow up:* Follow up in 6 months Functional Status Functional Condition Comment Date Status Independent with all ADL's Activ e Mental Status Description No Information Available Referrals Description No Information Available
--- OUTSIDE RECORDS SUMMARY | 2021-07-14 10:42 | CCD | Continuity of Care Document ---
Author Author Niels SALDANA PA Organization Unknown Address [address] [place] [address], [facility] [place] [address] Phone [phone] Care Team Providers Care Manufactured Buildings Repairer Name Role Phone Yohannes Bray MD AUTM [phone] Edna Deng MD AUTM [phone] Joey Arroyo MD AUTM [phone] Kayla Schultz AUTM [phone] Caitlin Gamboa DO AUTM [phone] Problems Active Problems Provider Date Chronic diastolic [...] 02/19/2018 Drug-induced bradycardia HOLGER Damon Onset: 018 Counseling about tobacco use HOLGER Damon Onset: 07/2018 Tobacco user HOLGER Damon Onset: 02/20/2019 Paroxysmal atrial fibrillation HOLGER Damon Onset: 0 09/24/2019 Chronic cor pulmonale HOLGER Degroot Onset: 12/19/19 21 Social History Type Date Description Comments Sex Unknown ETOH Use Does not consume alcohol Tobacco Use Start: Unknown Patient is a current smoker, smo kes every day 10 or less/ day since age 17 Smoking Status Reviewed: 06/23/21 Patient is a current smoker, smokes every [...] Available Vital Signs Date Vital Result Comment 06/23/2021 10:18am Weight 204.00 lb Home Weight 201lb Height 70 inches 5'10" BMI (Body Mass Index) 29.3 kg/m2 Heart Rate 118 /min 12/18/2020 10:20am Weight 209.00 lb Home Weight 205lb Height 70 inches 5'10" BMI (Body Mass Index) 30.0 kg/m2 Heart Rate 94 /min BP Systolic Sitting 116 mmHg Ra, large cuff BP Diastolic Sitting 74 mmHg Ra, large cuff Results Test Acquired Date Facility Test Result [...] GFR 1.54 Lipid Profile/Cardiac Risk Pro 03/31/2021 [facility] - not interfaced (315)- - Triglycerides 80 <150 Cholesterol 160 <200 HDL 41 >40.0 LDL Cholesterol 103 Chol/HDL Ratio 3.902 <5 Laboratory test finding 03/31/2021 [facility] - not interf aced (315)- - Thyroid Stimulating Hormone 1.650 Renal Profile 02/10/2021 [facility] (315)- - Glucose 111 High 70-106 Blood Urea Nitrogen 23.1 High 7-18 Creatinine 1.4 High 0.55-1.3 GFR (Calculated) 51 Low >60 Sodium 140.1 135-145 Potassium 3.86 3.5-5.5 Chloride 106.5 94-110 Carbon Dioxide 27.0 21-32 Calcium 9.8 8.5-10.1 Phosphorus 2.9 Albumin 4.2 2.5-4.9 CBC without Differential 02/10/2021 [facility] ([facility])- - White Blood Count 8.8 5.0-10.0 Red Blood Count 5.86 4.70-6.10 Platelets 215 172-450 Hemoglobin 17.2 14.0-18.0 Hematocrit 51.9 42.0-52.0 Laboratory test finding 02/10/2021 [facility] (315)- - Magnesium Level 2.06 1.6-2.6 Procedures Date Code Description Status 06/23/2021 24868 Smoking & Tobacco Ce ssation Counseling Visit Intermediate 3-10Min Completed 06/23/2021 17828 Office/Outpatient Established Mo d MDM 30-39 Min Completed 06/23/2021 65128 ECG 12-Lead Completed Medical Devices Description No Information Available Encounters Type Date Location Provider Dx Diagnosis Office Visit 06/23/2021 10:15a Main Office HOLGER Degroot I48 .92 Unspecified atrial flutter I48.0 Paroxysmal atrial fibrillati on I27.81 Cor pulmonale (chronic) I11.0 Hypertensive heart disease w ith heart failure I50.32 Chronic diastolic (congestiv e) heart failure F17.210 Nicotine dependence, cigaret juli, uncomplicated R94.31 Abnormal electrocardiogram [ ECG] [EKG] Z87.891 Personal history of nicotine dependence Z71.3 Dietary counseling and surve illance Z71.6 Tobacco abuse counseling Assessments Date Code Description Provider 06/23/2021 I48.92 Unspecified atrial flutter HOLGER Valentine 06/23/2021 I48.0 Paroxysmal atrial fibrillation C HOLGER Archer 06/23/2021 I27.81 Cor pulmonale (chronic) HOLGER Marin 06/23/2021 I11.0 Hypertensive heart disease with heart failure HOLGER Degroot 06/23/2021 I50.32 Chronic diastolic (congestive) h eart failure HOLGER Degroot 06/23/2021 F17.210 Nicotine dependence, cigarettes, uncomplicated HOLGER Degroot 06/23/2021 R94.31 Abnormal electrocardiogram [ECG] [EKG] HOLGER Degroot 06/23/2021 Z87.891 Personal history of nicotine dep endence HOLGER Degroot 06/23/2021 Z71.3 Dietary counseling and surveilla nce HOLGER Degroot 06/23/2021 Z71.6 Tobacco abuse counseling HOLGER Cuellar ra Plan of Treatment Future Appointment(s):* 09/23/2021 2:15 pm - HOLGER Degroot at Main Office 06/23/2021 - HOLGER Degroot* I48.92 Unspecified atrial flutter* Referral:* Edna Deng MD, Cardiac Electrophyslgy * Recommendations:* Will refer patient back to Dr. Deng for a possible repeat ablation procedure Continue atenolol and digoxin at the current dosages At this time blood pressure is too soft to tolerate additional medication Continue Eliquis as directed Decrease caffeine and nicotine * I48.0 Paroxysmal atrial fibrillation * I27.81 Cor pulmonale (chronic)* Recommendations:* Continue furosemide as directed Please alert the office with the onset of any shortness of breath or lower extremity * I11.0 Hypertensive heart disease with heart failure* Recommendations:* Continue atenolol as directed Advised patient to monitor blood [...] evaluation is needed at this time. * Z87.891 Personal history of nicotine dependence * Z71.3 Dietary counseling and surveillance* Recommendations:* Recommended for patient to follow a more whole food diet. Advised patient to avoid overly processed foods and packaged foods. Advised patient to avoid sodas, juices and other liquid calories. Recommended at least 30 minutes of exercise 3 days a week. * Z71.6 Tobacco abuse counseling * All * Follow up:* CV with EKG in 3 months / after consult with Dr. Deng Functional Status Functional Condition Comment Date Status Independent with all ADL's Activ e Mental Status Description No Information Available Referrals Refer to Reason for Referral Status Appt Date Edna Deng MD Please evaluate and treat th is patient with persistent atrial flutter, you previously saw patient in 2018 for an atrial flutter ablation. Patient fortunately remains asymptomatic in regards to his heart action or shortness of breath, however he has noticed his resting heart rates are typically greater than 120. Patient has been compliant with max dose digoxin and atenolol therapy, unfortunately continues to have tachycardia. Due to soft blood pressure patient cannot tolerate additional medical therapy at this time. I do believe he would benefit from a consultation and a repeat possible ablation procedure. Thank you for your consultation and care of this patient. Created [facility] [address] [place] [address] [phone]
--- OUTSIDE RECORDS SUMMARY | 2021-07-14 10:42 | CCD | Continuity of Care Document ---
Author Author Niels HATCH MT Organization Unknown Address [address], [address] [place] [address] Phone [phone] Care Team Providers Care Interior Wirer Name Role Phone Caitlin Lubin D.O. AUTM Niels Steven M.D. AUTM [phone] Problems Description No Information Available Social History [...] 1 Tablet By Mouth Once Daily Suzanne Mcuqeen, P.ALatesha 00 Vitamin D3 25mcg (1000 Ut) Tablets 1 by mouth every day Unknown Immunizations Description No Information Available Vital Signs Date Vital Result Comment 05/31/2021 11:34am BP Systolic 110 mmHg BP Diastolic 70 mmHg Body Temperature 98.3 F Height 70 inches 5'10" Weight 208.50 lb BMI (Body Mass Index) 29.9 kg/m2 [place] Body Weight 166 lb Weight 94.576 kg BSA (Body Surface Area) 2.12 m2 06/10/2019 10:01am BP Systolic 115 mmHg BP Diastolic 84 mmHg Height 70 inches 5'10" Weight 191.00 lb BMI (Body Mass Index) 27.4 kg/m2 [place] Body Weight 166 lb Weight 86.638 kg BSA (Body Surface Area) 2.05 m2 Results Description No Information Available Procedures Date Code Description Status 05/31/2021 30304 Office/Outpatient Established Lo w MDM 20-29 Min Completed Medical Devices Description No Information Available Encounters Type Date Location Provider Dx Diagnosis Office Visit 05/31/2021 11:30a [facility] HOLGER Velez Z12.11 Encounter for screening for malignant ne oplasm of colon I48.91 Unspecified atrial fibrillat ion Assessments Date Code Description Provider 05/31/2021 Z12.11 Encounter for screening for yousif gnant neoplasm of colon HOLGER Caldwell 05/31/2021 I48.91 Unspecified atrial fibrillation HOLGER Caldwell Plan of Treatment Future Appointment(s):* 07/27/2021 9:00 am - HOLGER aCldwell at [facility] * 07/14/2021 1:15 pm - Kvng Carpenter MD at [facility] 05/31/2021 - HOLGER Caldwell* Z12.11 Encounter for screening for malignant neoplasm of colon * I48.91 Unspecified atrial fibrillation Functional Status Description No Information Available Mental Status Description No Information Available Referrals Refer to Dr Reason for Referral Status Appt Date Kvng Carpenter MD COLONOSCOPY Scheduled 05/11/[address] [place], [place] [id number] [phone]
--- OUTSIDE RECORDS SUMMARY | 2021-07-14 10:42 | CCD ---
Author Author [facility] Organization [facility] Address Unknown Phone Unavailable Care Team Providers Care Project Planner Name Role Phone Caitlin Lubin Unavailable PROBLEMS Type Condition ICD9-CM Code [id number] Code Onset Dates Condition S tatus W/U Status Risk SNOMED Code Notes Problem Chronic kidney disease, stage III (moderate) N18.3 Active confirmed 022623344 Problem Vitamin D deficiency E55.9 Active confirmed 79635463 Problem Paroxysmal atrial fibrillation I48.0 Active confir med 398470946 Problem Cigarette nicotine dependence without complication F17.210 Active confirmed 19318034 Problem Mixed hyperlipidemia E78.2 Active confirmed 519741132 Problem Osteoarthritis of right wrist, unspecified osteo arthritis type M19.031 Active confirmed 101512543770380 Problem Osteoarthritis of right hand, unspecified osteoarthrit is type M19.041 Active confirmed 053288964625911 Problem Chronic diastolic congestive heart failure I50.32 Active confirmed 339846410 ALLERGIES No Known Allergies ENCOUNTERS from 1955 to 2021-06-03 Encounter Location Date Provider Diagnosis [id number] [place] [address] May, [place] IMMUNIZATIONS Vaccine Route Administration Date Status COVID-19 dose #2 given elsewhere Unspecified Unknown Apr 2020 Administered COVID-19 dose #1 given elsewhere Unspecified Unknown Mar 2020 Administered Influenza 18 yrs & older Flublok IM Intramuscular Jun 25, 2020 Administered Pneumococcal Adult 0.5mL Pneumovax 23 IM Intramuscular Jun 25 Administered TDAP 0.5mL (Boostrix) IM Intramuscular Jul 15, 2019 Administe red Pneumococcal 0.5mL Prevnar 13 IM Intramuscular December 13, 2017 A dministered SOCIAL HISTORY Tobacco Use: Social History Observation Description Date Details (start date - stop date) Current Smoker Sex Assigned At : Social History Observation Description Sex Assigned At Unknown Education: Question Answer Notes Level of Education: Graduate Audit Question Answer Notes Total Score: 1 Interpretation: Alcohol Education Language: Question Answer Notes Languages spoken: Occitan Baptist: Question Answer Notes Baptist 33 None Sexual Hx: Question Answer Notes Had sex in the last 12 months (vaginal, oral, or anal)? No Have you ever had an STD? No Drug and Alcohol Question Answer Notes Total Score: 0 Interpretation: No problems reported Alcohol Screening: Question Answer Notes Did you have a drink containing alcohol in the past year? No Points 0 Interpretation Negative Tobacco Use: Question Answer Notes Are you a: current smoker How many cigarettes a day do you smoke? 6-10 REASON FOR REFERRAL No Information VITAL SIGNS No information MEDICATIONS Medication SIG (Take, Route, Frequency, Duration) Notes Start Da te End Date Status Digoxin 250 MCG Orally Daily 0.0125 qam Active Vitamin D 25 MCG (1000 UT) 1 tablet Orally Once a day for 90 day (s) Jun, Active Furosemide 20 MG 1 tablet Orally Once a day for 7 day(s) 1 7 Jul, 2017 Active Eliquis 5 MG take 1 tablet Orally Twice daily Active Atenolol 50 MG 1 tablet Orally bid A ctive Simvastatin 20 MG 1 tablet in the evening Orally Once a day for 90 da ys Active PROCEDURES No Information RESULTS No Results REASON FOR VISIT refill MEDICAL (GENERAL) HISTORY Type Description Date Medical History CHF, chronic 2 diastolic dysfx-08/[address]-low risk-Steven Medical History paroxysmal atrial fibrillati on and flutter, s/p ablation but still in and out of rhythm Medical History CKD stage III, follows with Dr. Arroyo Medical History Vitamin D Deficiency Medical History mode LAE, thomas dysfx, mild PHTN, mod MR b y 10/2017 TTE-Steven Medical History mixed hyperlipidemia Medical History prediabetes Surgical History appendectomy Surgical History Tonsillectomy Surgical History RF Ablation 11/2017 [facility] 05/29/19 Hospitalization History CHF 07/2017 Goals Section No Information Health Concerns No Information MEDICAL EQUIPMENT No Information MENTAL STATUS No Information FUNCTIONAL STATUS No Information ASSESSMENTS No Information PLAN OF TREATMENT Medication Medication Name Sig Start Date Stop Date Simvastatin 20 MG 1 tablet in the evening Orally Once a day for 90 days Insurance Providers Payer Name Payer Address Payer Phone Insured Name Patient Relati onship to Insured Coverage Start Date Coverage End Date [facility] [address] [facility] [id number] JOHN HERNANDEZ MEDICARE Part A and B [address] [facility] [id number] [phone] JOHN HERNANDEZ self
--- OUTSIDE RECORDS SUMMARY | 2021-07-14 10:42 | CCD ---
Author Author [facility] Organization [facility] Address Unknown Phone Unavailable Care Team Providers Care Deicer Finisher Name Role Phone Caitlin Lubin Unavailable PROBLEMS Type Condition ICD9-CM Code ZTB80-DN Code Onset Dates Condition S tatus W/U Status Risk SNOMED Code Notes Problem Chronic kidney disease, stage III (moderate) N18.3 Active confirmed 616268747 Problem Vitamin D deficiency E55.9 Active confirmed 60640366 Problem Paroxysmal atrial fibrillation I48.0 Active confir med 852583685 Problem Cigarette nicotine dependence without complication F17.210 Active confirmed 00876388 Problem Mixed hyperlipidemia E78.2 Active confirmed 661519384 Problem Osteoarthritis of right wrist, unspecified osteo arthritis type M19.031 Active confirmed 651484634043626 Problem Osteoarthritis of right hand, unspecified osteoarthrit is type M19.041 Active confirmed 958740804199666 Problem Chronic diastolic congestive heart failure I50.32 Active confirmed 364634830 ALLERGIES No Known Allergies ENCOUNTERS from 1955 to 2021-04-21 Encounter Location Date Provider Diagnosis [id number] [place] [address] Mar, Caitlin Lubin Annual physical exam Z00.00 ; Colon canc er screening Z12.11 ; Cigarette nicotine dependence without complication F17.210 and Hyperkalemia E87.5 IMMUNIZATIONS Vaccine Route Administration Date Status COVID-19 dose #2 given elsewhere Unspecified Unknown Apr 2020 Administered COVID-19 dose #1 given elsewhere Unspecified Unknown Mar ch 2020 Administered Influenza 18 yrs & older Flublok IM Intramuscular Jun 25, 2020 Administered Pneumococcal Adult 0.5mL Pneumovax 23 IM Intramuscular Jun 25 020 Administered TDAP 0.5mL (Boostrix) IM Intramuscular Jul [...] Education Language: Question Answer Notes Languages spoken: [place] Orthodox: Question Answer Notes Orthodox 33 None Sexual Hx: Question Answer Notes [...] do you smoke? 6-10 REASON FOR REFERRAL from 1955 to 2021-04-21 Reason Patient requires routine scr eening colonoscopy. Please eval and treat. Diagnosis 1 Colon cancer screening (Z12. 11) Referral Organization [facility] Rendon Referring Provider First Name Referring Provider Last Name Amee Referring Provider Specialty Family Medicine Referred Provider [facility] General SurgerySyl Referred Provider Specialty General Surgery Referral Priority Routine General Notes Jann Dodge 04/08/2021 5:15 :59 PM > faxed VITAL SIGNS Weight 209.6 lbs Mar, Height 5' 9.5" in Mar, BMI 30.51 kg/m2 Mar, Heart Rate 117 /min Mar, Respiratory Rate 18 /min Mar, Temperature 96.9 degrees Fahrenheit Mar, Oximetry 98 Mar, Blood pressure systolic 110 mm Hg Mar, Blood pressure diastolic 78 mm Hg Mar, MEDICATIONS Medication SIG (Take, Route, Frequency, Duration) Notes Start Da te End Date Status Atenolol 50 MG 1 tablet Orally bid A ctive Vitamin D 25 MCG (1000 UT) 1 tablet Orally Once a day for 90 day (s) Jun, Active Furosemide 20 MG 1 tablet Orally Once a day for 7 day(s) 1 7 Jul, 2017 Active Digoxin 250 MCG Orally Daily 0.0125 qam Active Simvastatin 20 MG 1 tablet in the evening Orally Once a day for 90 da ys Active Eliquis 5 MG take 1 tablet Orally Twice daily Active PROCEDURES No Information RESULTS No Results REASON FOR VISIT 3 month MEDICAL (GENERAL) HISTORY Type Description Date Medical [...] RF Ablation 11/2017 Surgical History hernia repair ([facility]) 05/29/19 Hospitalization History CHF 07/2017 Goals Section No Information Health Concerns No Information MEDICAL EQUIPMENT No Information MENTAL STATUS No Information FUNCTIONAL STATUS No Information ASSESSMENTS Encounter Date Diagnosis Assessment Notes Treatment Notes Treatm ent Clinical Notes Mar, Annual physical exam (ICD-10 - Z00.00) Patient seen and examined. Past medical, surgical, family, social history reviewed. Discussed preventive medicine, including immunizations. Appropriate labwork was ordered prior to this appt and reviewed. Mar, Colon cancer screening (ICD-10 - Z12.11) Mar, Cigarette nicotine dependenc e without complication (ICD-10 - F17.210) Discussed risks of smoking, and encouraged cessation. He declines medication, states he needs to work on it himself. Mar, Hyperkalemia (ICD-10 - E87.5) Ordered to followup on hyperkalemia. He does have CKD but I suspect that it may have been a hemolyzed specimen. PLAN OF TREATMENT Treatment Notes Assessment Notes Clinical Notes Annual physical exam Patient seen and ex amined. Past medical, surgical, family, social history reviewed. Discussed preventive medicine, including immunizations. Appropriate labwork was ordered prior to this appt and reviewed. Cigarette nicotine dependence without complication Discussed risks of smoking, and encouraged cessation. He declines medication, states he needs to work on it himself. Hyperkalemia Ordered to followup on hyperkalemia. He does have CKD but I suspect that it may have been a hemolyzed specimen. Future Test Test Name Order Date Basic Metabolic Profile (BMP) [id number] Referrals Referral Date Details Patient requires routine scr eening colonoscopy. Please eval and treat., Devaughn ORTEGA General Surgery Next Appt Details 6 months Reason:f/u Follow Up:6 monthsf/u Insurance Providers Payer Name Payer Address Payer Phone Insured Name Patient Relati onship to Insured Coverage Start Date Coverage End Date MEDICARE Part A and B [address] [facility] [phone] JOHN HERNANDEZ [facility] [address] [facility] [address] JOHN HERNANDEZ
--- OUTSIDE RECORDS SUMMARY | 2021-07-14 10:42 | CCD | Continuity of Care Document ---
Author Organization Unknown Address Unknown Phone Unavailable Care Team Providers Care Printing Equipment Mechanic Name Role Phone Yohannes Bray MD AUTM [phone] Edna Deng MD AUTM [phone] Joey Arroyo MD AUT[facility] [phone] Kayla Schultz AUTM [phone] Caitlin Gamboa DO AUTM [phone] Problems Active Problems Provider Date Chronic diastolic [...] Date Facility Test Result H/L Range Note Renal Profile 02/10/2021 [facility] (315)- - [...] to chronic bronchitis, emphysema, lung cancer, CAD, VA, CVA * R94.31 Abnormal electrocardiogram [ECG] [EKG]* [...]
--- OUTSIDE RECORDS SUMMARY | 2021-07-14 10:42 | CCD | Continuity of Care Document ---
Author Author Niels SALDANA PA Organization Unknown Address [address] [place] [address], [facility] [place] [address] Phone [phone] Care Team Providers Care Music Minister Name Role Phone Yohannes Bray MD [facility] [phone] Edna Deng MD [facility] [phone] Joey Arroyo MD [facility] [phone] Kayla Schultz AUTM [phone] Caitlin Gamboa DO AUTM [phone] Problems Active Problems Provider Date Chronic diastolic [...] GFR 1.54 Lipid Profile/Cardiac Risk Pro 03/31/2021 [facility] - not interfaced (315)- - Triglycerides 80 <150 Cholesterol 160 <200 HDL 41 >40.0 LDL Cholesterol 103 Chol/HDL Ratio 3.902 <5 Laboratory test finding 03/31/2021 [facility] - not interf aced (315)- - Thyroid [...] 1.6-2.6 Procedures Date Code Description Status 06/23/2021 15133 Smoking & Tobacco Ce ssation Counseling Visit Intermediate 3-10Min Completed 06/23/2021 73029 Office/Outpatient Established Mo d MDM 30-39 Min Completed 06/23/2021 74736 ECG 12-Lead Completed Medical Devices Description No [...] uncomplicated R94.31 Abnormal electrocardiogram [ ECG] [EKG] Z71.3 Dietary counseling and surve illance Assessments Date Code Description Provider 06/23/2021 I48.92 [...] Abnormal electrocardiogram [ECG] [EKG] HOLGER Degroot 06/23/2021 Z71.3 Dietary counseling and surveilla nce HOLGER Degroot Plan of Treatment Future Appointment(s):* 09/23/2021 2:15 [...] 3 days a week. * All * Follow up:* CV with [...] consultation and care of this patient. Created [facility] [address] [place] [address] [phone]
--- OUTSIDE RECORDS SUMMARY | 2021-07-14 10:43 | CCD ---
Author Author [facility] Organization [facility] Address Unknown Phone Unavailable Care Team Providers Care Surgical Endoscopist Name Role Phone SHANA, L KAMILLE PA Unavailable Unavailable SHANA, L KAMILLE PA Unavailable Unavailable SHANA, L KAMILLE PA Unavailable Unavailable SHANA, L KAMILLE PA Unavailable Unavailable SHANA, L KAMILLE PA Unavailable Unavailable SHANA, L KAMILLE PA Unavailable Unavailable SHANA, L KAMILLE PA Unavailable Unavailable SHANA, L KAMILLE PA Unavailable Unavailable SHANA, L KAMILLE PA Unavailable Unavailable SHANA, L KAMILLE PA Unavailable Unavailable SHANA, L KAMILLE PA Unavailable Unavailable SHANA, L KAMILLE PA Unavailable Unavailable SHANA, L KAMILLE PA Unavailable Unavailable SHANA, L KAMILLE PA Unavailable Unavailable SHANA, L KAMILLE PA Unavailable Unavailable SHANA, L KAMILLE PA Unavailable Unavailable CooperToño Narvaez DO Unavailable Unavailabl e Cooper-Toño Miner DO Unavailable Unavailabl e Cooper-TarteToño mars DO Unavailable Unavailabl e Cooper-TarteToño mars DO Unavailable Unavailabl e Cooper-Tartell, M DO Unavailable Unavailabl e Cooper-Tartell, M DO Unavailable Unavailabl e Cooper-Tartell, M DO Unavailable Unavailabl e Cooper-Tartell, M DO Unavailable Unavailabl e Cooper-Tartell, M DO Unavailable Unavailabl e Cooper-Tartell, M DO Unavailable Unavailabl e Cooper-Tartell, M DO Unavailable Unavailabl e Cooper-Tartell, M DO Unavailable Unavailabl e Cooper-Tartell, M DO Unavailable Unavailabl e Cooper-Tartell, M DO Unavailable Unavailabl e Cooper-Tartell, M DO Unavailable Unavailabl e Cooper-Tartell, M DO Unavailable Unavailabl e Cooper-Tartell, M DO Unavailable Unavailabl e Cooper-Tartell, M DO Unavailable Unavailabl e Cooper-Tartell, M DO Unavailable Unavailabl e Cooper-Tartell, M DO Unavailable Unavailabl e Cooper-Tartell, M DO Unavailable Unavailabl e Cooper-Tartell, M DO Unavailable Unavailabl e Cooper-Tartell, M DO Unavailable Unavailabl e Cooper-Tartell, M DO Unavailable Unavailabl e Cooper-Tartell, M DO Unavailable Unavailabl e Cooper-Tartell, M DO Unavailable Unavailabl e Cooper-Tartell, M DO Unavailable Unavailabl e Cooper-Tartell, M DO Unavailable Unavailabl e Cooper-Tartell, M DO Unavailable Unavailabl e Cooper-Tartell, M DO Unavailable Unavailabl e Cooper-Tartell, M DO Unavailable Unavailabl e Cooper-Tartell, M DO Unavailable Unavailabl e Cooper-Tartell, M DO Unavailable Unavailabl e Cooper-Tartell, M DO Unavailable Unavailabl e Cooper-Tartell, M DO Unavailable Unavailabl e Cooper-Tartell, M DO Unavailable Unavailabl e Cooper-Tartell, M DO Unavailable Unavailabl e Cooper-Tartell, M DO Unavailable Unavailabl e Cooper-Tartell, M DO Unavailable Unavailabl e Cooper-Tartell, M DO Unavailable Unavailabl e Cooper-Tartell, M DO Unavailable Unavailabl e Cooper-Tartell, M DO Unavailable Unavailabl e Cooper-Tartell, M DO Unavailable Unavailabl e Cooper-Tartell, M DO Unavailable Unavailabl e Cooper-Tartell, M DO Unavailable Unavailabl e Cooper-Tartell, M DO Unavailable Unavailabl e Cooper-Tartell, M DO Unavailable Unavailabl e Cooper-Tartell, M DO Unavailable Unavailabl e Cooper-Tartell, M DO Unavailable Unavailabl e Cooper-Tartell, M DO Unavailable Unavailabl e Cooper-Tartell, M DO Unavailable Unavailabl e Cooper-Tartell, M DO Unavailable Unavailabl e Cooper-Tartell, M DO Unavailable Unavailabl e Cooper-Tartell, M DO Unavailable Unavailabl e Fermin, L Daniela RPA Unavailable Unavailable Fermin, L Daniela RPA Unavailable Unavailable Fermin, L Daniela RPA Unavailable Unavailable Fermin, L Daniela RPA Unavailable Unavailable Fermin, L Daniela RPA Unavailable Unavailable Fermin, L Daniela RPA Unavailable Unavailable Fermin, L Daniela RPA Unavailable Unavailable Fermin, L Daniela RPA Unavailable Unavailable Fermin, L Daniela RPA Unavailable Unavailable Fermin, L Daniela RPA Unavailable Unavailable Fermin, L Daniela RPA Unavailable Unavailable Fermin, L Daniela RPA Unavailable Unavailable Fermin, L Daniela RPA Unavailable Unavailable Fermin, L Daniela RPA Unavailable Unavailable Fermin, L Daniela RPA Unavailable Unavailable Fermin, L Daniela RPA Unavailable Unavailable Fermin, L Daniela RPA Unavailable Unavailable Fermin, L Daniela RPA Unavailable Unavailable Fermin, L Daniela RPA Unavailable Unavailable Fermin, L Daniela RPA Unavailable Unavailable Fermin, L Daniela RPA Unavailable Unavailable Fermin, L Daniela RPA Unavailable Unavailable Fermin, L Daniela RPA Unavailable Unavailable Fermin, L Daniela RPA Unavailable Unavailable Fermin, L Daniela RPA Unavailable Unavailable Fermin, L Daniela RPA Unavailable Unavailable Fermin, L Daniela RPA Unavailable Unavailable Fermin, L Daniela RPA Unavailable Unavailable Fermin, L Daniela RPA Unavailable Unavailable Fermin, L Daniela RPA Unavailable Unavailable Fermin, L Daniela RPA Unavailable Unavailable Fermin, L Daniela RPA Unavailable Unavailable Al Mudamgha, A Ali MD Unavailable Unavailable Al Mudamgha, A Ali MD Unavailable Unavailable Al Mudamgha, A Ali MD Unavailable Unavailable Al Mudamgha, A Ali MD Unavailable Unavailable Al Mudamgha, A Ali MD Unavailable Unavailable Al Mudamgha, A Ali MD Unavailable Unavailable Al Mudamgha, A Ali MD Unavailable Unavailable Al Mudamgha, A Ali MD Unavailable Unavailable Al Mudamgha, A Ali MD Unavailable Unavailable Al Mudamgha, A Ali MD Unavailable Unavailable Al Mudamgha, A Ali MD Unavailable Unavailable Al Mudamgha, A Ali MD Unavailable Unavailable Al Mudamgha, A Ali MD Unavailable Unavailable Al Mudamgha, A Ali MD Unavailable Unavailable Al Mudamgha, A Ali MD Unavailable Unavailable Al Mudamgha, A Ali MD Unavailable Unavailable Al Mudamgha, A Ali MD Unavailable Unavailable Al Mudamgha, A Ali MD Unavailable Unavailable Al Mudamgha, A Ali MD Unavailable Unavailable Al Mudamgha, A Ali MD Unavailable Unavailable Al Mudamgha, A Ali MD Unavailable Unavailable Al Mudamgha, A Ali MD Unavailable Unavailable Al Mudamgha, A Ali MD Unavailable Unavailable Al Mudamgha, A Ali MD Unavailable Unavailable Al Mudamgha, A Ali MD Unavailable Unavailable Al Mudamgha, A Ali MD Unavailable Unavailable Al Mudamgha, A Ali MD Unavailable Unavailable Al Mudamgha, A Ali MD Unavailable Unavailable Al Mudamgha, A Ali MD Unavailable Unavailable Al Mudamgha, A Ali MD Unavailable Unavailable Al Mudamgha, A Ali MD Unavailable Unavailable Al Mudamgha, A Ali MD Unavailable Unavailable Al Mudamgha, A Ali MD Unavailable Unavailable Al Mudamgha, A Ali MD Unavailable Unavailable Al Mudamgha, A Ali MD Unavailable Unavailable Al Mudamgha, A Ali MD Unavailable Unavailable Al Mudamgha, A Ali MD Unavailable Unavailable Al Mudamgha, A Ali MD Unavailable Unavailable Al Mudamgha, A Ali MD Unavailable Unavailable Al Mudamgha, A Ali MD Unavailable Unavailable Al Mudamgha, A Ali MD Unavailable Unavailable Al Mudamgha, A Ali MD Unavailable Unavailable Al Mudamgha, A Ali MD Unavailable Unavailable Al Mudamgha, A Ali MD Unavailable Unavailable Al Mudamgha, A Ali MD Unavailable Unavailable Al Mudamgha, A Ali MD Unavailable Unavailable Al Mudamgha, A Ali MD Unavailable Unavailable Al Mudamgha, A Ali MD Unavailable Unavailable Al Mudamgha, A Ali MD Unavailable Unavailable Al Mudamgha, A Ali MD Unavailable Unavailable Al Mudamgha, A Ali MD Unavailable Unavailable Al Mudamgha, A Ali MD Unavailable Unavailable Al Mudamgha, A Ali MD Unavailable Unavailable Al Mudamgha, A Ali MD Unavailable Unavailable Al Mudamgha, A Ali MD Unavailable Unavailable Al Mudamgha, A Ali MD Unavailable Unavailable Al Mudamgha, A Ali MD Unavailable Unavailable Al Mudamgha, A Ali MD Unavailable Unavailable Al Mudamgha, A Ali MD Unavailable Unavailable Al Mudamgha, A Ali MD Unavailable Unavailable Al Mudamgha, A Ali MD Unavailable Unavailable Al Mudamgha, A Ali MD Unavailable Unavailable Al Mudamgha, A Ali MD Unavailable Unavailable Al Mudamgha, A Ali MD Unavailable Unavailable Al Mudamgha, A Ali MD Unavailable Unavailable Al Mudamgha, A Ali MD Unavailable Unavailable Al Mudamgha, A Ali MD Unavailable Unavailable Al Mudamgha, A Ali MD Unavailable Unavailable Al Mudamgha, A Ali MD Unavailable Unavailable Al Mudamgha, A Ali MD Unavailable Unavailable Al Mudamgha, A Ali MD Unavailable Unavailable Al Mudamgha, A Ali MD Unavailable Unavailable Al Mudamgha, A Ali MD Unavailable Unavailable Al Mudamgha, A Ali MD Unavailable Unavailable Al Mudamgha, A Ali MD Unavailable Unavailable Al Mudamgha, A Ali MD Unavailable Unavailable Al Mudamgha, A Ali MD Unavailable Unavailable Al Mudamgha, A Ali MD Unavailable Unavailable Al Mudamgha, A Ali MD Unavailable Unavailable Al Mudamgha, A Ali MD Unavailable Unavailable Al Mudamgha, A Ali MD Unavailable Unavailable Al Mudamgha, A Ali MD Unavailable Unavailable Al Mudamgha, A Ali MD Unavailable Unavailable Al Mudamghdavid, A Edna HENDRICKS Unavailable Unavailable Al Conrado, David Bishop MD Unavailable Unavailable Al Conrado, A Edna HENDRICKS Unavailable Unavailable Al Katelynamcharbel, A Edna HENDRICKS Unavailable Unavailable Al Conrado, A Edna HENDRICKS Unavailable Unavailable Re-disclosure Warning The records that you are about to access may contain information from federally-assisted alcohol or drug abuse programs. If such information is present, then the following federally mandated warning applies: This information has been disclosed to you from records protected by federal confidentiality rules (42 CFR part 2). The federal rules prohibit you from making any further disclosure of this information unless further disclosure is expressly permitted by the written consent of the person to whom it pertains or as otherwise permitted by 42 CFR part 2. A general authorization for the release of medical or other information is NOT sufficient for this purpose. The Federal rules restrict any use of the information to criminally investigate or prosecute any alcohol or drug abuse patient.The records that you are about to access may contain highly sensitive health information, the redisclosure of which is protected by Article 27-F of the [facility] Public Health law. If you continue you may have access to information: Regarding HIV / AIDS; Provided by facilities licensed or operated by the [facility] Office of Mental Health; or Provided by the [facility] Office for People With Developmental Disabilities. If such information is present, then the following [facility] mandated warning applies: This information has been disclosed to you from confidential records which are protected by state law. State law prohibits you from making any further disclosure of this information without the specific written consent of the person to whom it pertains, or as otherwise permitted by law. Any unauthorized further disclosure in violation of state law may result in a fine or usp sentence or both. A general authorization for the release of medical or other information is NOT sufficient authorization for further disc losure. Family History Family Member Name Family Member Gender Family Member Status Date o f Status Description Data Source(s) Unknown Male Problem [facility] ([facility] Unknown Unknown Problem [facility] ([facility]) mother Encounters Encounter Providers Location Date Indications Data Source(s ) Outpatient Attender: Edna Castrokari MDReferrer: Elzbieta Lubin DO BF-BF 07/07/2021 12:00:00 AM EDT [facility] Outpatient [id number] 06/29/2021 03:04:22 PM EDT [facility] Outpatient Attender: KAMILLE WREN Main Office 06/23/2021 1 0:15:00 AM EDT [facility] ([facility]) [place] [address] [address] 06/03/2021 12:00:00 AM EDT eCW1 ([facility]) Outpatient Attender: Daniela Gautam/Dione/Drake/Suzy ramirez 05/31/2021 11:30:00 AM EDT MEDENT ([facility] [place] [address] [address] 04/08/2021 12:00:00 AM EDT eCW1 ([facility]) [place] [address] [address] 02/26/2021 12:00:00 AM EDT eCW1 ([facility]) [place] [address] [address] 12/28/2020 12:00:00 AM EDT eCW1 ([facility]) [place] [address] [address] 12/28/2020 12:00:00 AM EDT eCW1 ([facility]) Outpatient Attender: KAMILLE WREN Main Office 12/18/2020 1 0:15:00 AM EDT MED[facility] ([facility]) [place] [address] [address] 11/03/2020 12:00:00 AM EST eCW1 ([facility]) [place] [address] [address] 06/25/2020 12:00:00 AM EDT eCW1 ([facility]) Immunizations Vaccine Date Status Description Data Source(s) COVID-19 dose #2 given elsewhere Unspecified 12/12/2020 11:2 7:00 AM EDT completed eCW1 ([facility]) COVID-19 dose #2 given elsewhere Unspecified 12/12/2020 11:2 7:00 AM EDT completed eCW1 ([facility]) COVID-19 dose #2 given elsewhere Unspecified 12/12/2020 11:2 7:00 AM EDT completed eCW1 ([facility]) COVID-19 dose #2 given elsewhere Unspecified 12/12/2020 11:2 7:00 AM EDT completed eCW1 ([facility]) COVID-19 dose #2 given elsewhere Unspecified 12/12/2020 11:2 7:00 AM EDT completed eCW1 ([facility]) COVID-19 VACCINE Moderna 12/12/2020 12:00:00 AM EDT completed [employer] Vaccine Series Complete: YESThis Data wa s Submitted to [facility] Via [employer]. COVID-19 VACCINE, MRNA-1273, LNP-S (MODERNA)/PF 12/12/2020 1 2:00:00 AM EDT completed [facility] COVID-19 dose #1 given elsewhere Unspecified 11/12/2020 11:2 6:00 AM EST completed eCW1 ([facility]) COVID-19 dose #1 given elsewhere Unspecified 11/12/2020 11:2 6:00 AM EST completed eCW1 ([facility]) COVID-19 dose #1 given elsewhere Unspecified 11/12/2020 11:2 6:00 AM EST completed eCW1 ([facility]) COVID-19 dose #1 given elsewhere Unspecified 11/12/2020 11:2 6:00 AM EST completed eCW1 ([facility]) COVID-19 dose #1 given elsewhere Unspecified 11/12/2020 11:2 6:00 AM EST completed eCW1 ([facility]) COVID-19 VACCINE, MRNA-1273, LNP-S (MODERNA)/PF 11/12/2020 1 2:00:00 AM EST completed [facility] COVID-19 VACCINE Moderna 11/12/2020 12:00:00 AM EST completed [facility] Vaccine Series Complete: NOThis Data was Submitted to [facility] Via [employer]. pneumococcal polysaccharide PPV23 06/25/2020 03:49:00 PM EDT comple verona eCW1 ([facility]) pneumococcal polysaccharide PPV23 06/25/2020 03:49:00 PM EDT comple verona eCW1 ([facility]) pneumococcal polysaccharide PPV23 06/25/2020 03:49:00 PM EDT comple verona eCW1 ([facility]) pneumococcal polysaccharide PPV23 06/25/2020 03:49:00 PM EDT comple verona eCW1 ([facility]) pneumococcal polysaccharide PPV23 06/25/2020 03:49:00 PM EDT comple verona eCW1 ([facility]) pneumococcal polysaccharide PPV23 06/25/2020 03:49:00 PM EDT comple verona eCW1 ([facility]) pneumococcal polysaccharide PPV23 06/25/2020 03:49:00 PM EDT comple verona eCW1 ([facility]) influenza, recombinant, quadrIvalent,injectable, prese rvative free 06/25/2020 03:48:00 PM EDT completed eCW1 ([facility]) influenza, recombinant, quadrIvalent,injectable, prese rvative free 06/25/2020 03:48:00 PM EDT completed eCW1 ([facility]) influenza, recombinant, quadrIvalent,injectable, prese rvative free 06/25/2020 03:48:00 PM EDT completed eCW1 ([facility]) influenza, recombinant, quadrIvalent,injectable, prese rvative free 06/25/2020 03:48:00 PM EDT completed eCW1 ([facility]) influenza, recombinant, quadrIvalent,injectable, prese rvative free 06/25/2020 03:48:00 PM EDT completed eCW1 ([facility]) influenza, recombinant, quadrIvalent,injectable, prese rvative free 06/25/2020 03:48:00 PM EDT completed eCW1 ([facility]) influenza, recombinant, quadrIvalent,injectable, prese rvative free 06/25/2020 03:48:00 PM EDT completed eCW1 ([facility]) Medications Medication Brand Name Start Date Product Form Dose Route Admi nistrative Instructions Pharmacy Instructions Status Indications Reaction Description Data Source(s) Digoxin 0.25 MG Oral Tablet Digoxin 12/18/2020 12:00:00 AM EDT ORAL active [facility] ([facility]) Cholecalciferol 1000 UNT Oral Tablet Vitamin D3 12/17/2020 12:00:00 A M EDT ORAL active [facility] ([facility] Cholecalciferol 1000 UNT Oral Tablet Vitamin D 25 MCG (1000 UT) Vitamin D 25 MCG (1000 UT) 06/25/2020 12:00:00 AM EDT 1.0 {tablet} ac tive Vitamin D 25 MCG (1000 UT) eCW1 ([facility]) Cholecalciferol 1000 UNT Oral Tablet Vitamin D 25 MCG (1000 UT) Vitamin D 25 MCG (1000 UT) 06/25/2020 12:00:00 AM EDT 1.0 {tablet} ac tive Vitamin D 25 MCG (1000 UT) eCW1 ([facility]) Cholecalciferol 1000 UNT Oral Tablet Vitamin D 25 MCG (1000 UT) Vitamin D 25 MCG (1000 UT) 06/25/2020 12:00:00 AM EDT 1.0 {tablet} ac tive Vitamin D 25 MCG (1000 UT) eCW1 ([facility]) Cholecalciferol 1000 UNT Oral Tablet Vitamin D 25 MCG (1000 UT) Vitamin D 25 MCG (1000 UT) 06/25/2020 12:00:00 AM EDT 1.0 {tablet} ac tive Vitamin D 25 MCG (1000 UT) eCW1 ([facility]) Cholecalciferol 1000 UNT Oral Tablet Vitamin D 25 MCG (1000 UT) Vitamin D 25 MCG (1000 UT) 06/25/2020 12:00:00 AM EDT 1.0 {tablet} ac tive Vitamin D 25 MCG (1000 UT) eCW ([facility]) Cholecalciferol 1000 UNT Oral Tablet Vitamin D 25 MCG (1000 UT) Vitamin D 25 MCG (1000 UT) 06/25/2020 12:00:00 AM EDT 1.0 {tablet} ac tive Vitamin D 25 MCG (1000 UT) eCW1 ([facility]) Cholecalciferol 1000 UNT Oral Tablet Vitamin D 25 MCG (1000 UT) Vitamin D 25 MCG (1000 UT) 06/25/2020 12:00:00 AM EDT 1.0 {tablet} ac tive Vitamin D 25 MCG (1000 UT) eCW1 ([facility]) Insurance Providers Payer name Policy type / Coverage type Policy ID Covered libertarian ID Covered libertarian's relationship to goetz Policy Goetz Plan Information Medicaid Medicaid [id number] S elf [id number] [facility] MEDICAID [id number] Geetha [id number] [facility] MEDICAID [id number] [facility] [id number] SP [id number] MEDICAID [id number] S [id number] [facility] O [id number] S [id number] MEDICAID [id number] SP [id number] MEDICARE [id number] SP [id number] [facility] COMMUNITY PLAN [facility] [id number] SP [id number] ANSI-Not a Secondary Insurance [id number] ANSI-Medicare Part B [id number] ANSI-Medicaid [id number] ANSI-Medicaid [id number] ANSI-Not a Secondary Insurance [id number] ANSI-Medicare Part B [id number] Self Pay Medigap Part B [id number] Self [id number] Medicare (Part B) Medicare Primary [id number] Self [id number] [facility] Medigap Part B [id number] Self [id number] Self Pay Medigap Part B [id number] Self [id number] Medicare (Part B) Medicare Primary [id number] Self [id number] ANSI-Medicaid [id number] ANSI-Medicare Part B [id number] ANSI-Not a Secondary Insurance [id number] ANSI-Medicare Part B [id number] ANSI-Medicaid [id number] ANSI-Medicaid [id number] Self Pay Commercial [id number] Self [id number] [facility] Medigap Part B [id number] Self [id number] Self Pay Commercial [id number] Self [id number] Self Pay Commercial [id number] Self [id number] Self Pay Commercial [id number] Self [id number] [facility] MEDICAID PI PI Self Pay Commercial [id number] Self [id number] Self Pay Commercial [id number] Self [id number] Self Pay Commercial [id number] Self [id number] Self Pay Commercial [id number] Self [id number] Self Pay Medigap Part B [id number] Self [id number] SELF PAY ONLY [id number] SP [id number] [employer] [place] PPO 302/307 [id number] SP [id number] [employer] S [id number] S [id number] EXCELLUS BCBS P [id number] S [id number] [facility] [id number] SP [id number] LIBERTY MUTUAL [id number] SP [id number] MEDICARE [id number] SP [id number] [facility] [id number] SP [id number] Problems, Conditions, and Diagnoses Code Display Name Description Problem Type Effective Dates Data Source(s) I48.3 Typical atrial flutter Typical atrial flutter Diagnosi s 07/07/2021 07:16:22 AM EDT [facility] I27.81 Chronic cor pulmonale Chronic cor pulmonale Problem 12/18/2020 12:00:00 AM EDT MEDENT ([facility]) F17.210 [id number] Cigarette nicotine dependence without com plication Problem 06/25/2020 12:00:00 AM EDT eCW1 ([facility]) Surgeries/Procedures Procedure Description Date Indications Data Source(s) ECG ROUTINE ECG W/LEAST 12 LDS W/I&R 06/23/2021 12:00: 00 AM EDT MEDENT ([facility]) OFFICE OUTPATIENT VISIT 25 MINUTES 06/23/2021 12:00:00 AM EDT MEDENT ([facility]) TOBACCO USE CESSATION INTERMEDIATE 3-10 MINUTES 2020 12:00:00 AM EDT MEDENT ([facility]) OFFICE OUTPATIENT VISIT 15 MINUTES 05/31/2021 12:00:00 AM EDT MEDENT ([facility] ) ECG ROUTINE ECG W/LEAST 12 LDS W/I&R 12/18/2020 12:00: 00 AM EDT MEDENT ([facility]) PNEUMOCOCCAL POLYSAC VACCINE 23-V 2 />YR SUBQ/IM 06/25 12:00:00 AM EDT eCW1 ([facility]) Immunization: Flublok Quadrivalent (18 years & older) 0.5mL IM (Influenza) 06/25/2020 12:00:00 AM EDT eCW1 ([facility]) Results ID Date Data Source [id number] 07/07/2021 10:53:34 AM [facility]FORMATIONPatient MRN Name Date of Age Gend*PT [id number] John Parker 1955 66 years M ---PT Location Admission Date/Time Visit ID Attending Provider --- --- --- --- EPI ID CSN Admitting Provider [id number] ---[facility] [id number], [address] (First Floor)[place], [place] [address]Tk.: Fax: Vatient: John Parker : 4Date: 07/07/21CARDIOLOGY ELECTROPHYSIOLOGY TELEMEDICINE CONSULTPatient was identified by name and date of .Verbal consent was obtained from the patient for this telemedicine visit.Patient is aware of the risks, limitations, and benefits of a telemedicinevisit.This telemedicine assessment was conducted remotely with the assistance ofKaritKarma communication technology. Telephone Only Codes 61064: 21-30 minutesof medical discussion: Telephone Only .Subjective:I was asked by Dr. Steven to consult on this 66 years male with atrial flutterHISTORY OF PRESENT ILLNESS: Patient is a 66-year-old gentleman with a history oftypical isthmus dependent atrial flutter who is status post ablation in 2018.Unfortunately patient has had recurrence of his atrial flutter. He denies anypalpitations. He does note some mild shortness of breath and some dyspnea onexertion but in general tells me he feels "okay ". He denies any syncope ornear syncope.Past Medical History:Diagnosis Date Atrial fibrillation CHF (congestive heart failure) COPD (chronic obstructive pulmonary disease) HypertensionFAMILY HISTORY: family history is not on file.SOCIAL HISTORY: reports that he has been smoking cigarettes. He has never usedsmokeless tobacco. He reports that he does not drink alcohol and does not usedrugs.REVIEW OF SYSTEMS: Constitutional: Denies syncope. Denies fever, chills, weightloss or gain. Eyes: Denies blindness. Cardiovascular: Denies chest pain.Respiratory: Intermittent shortness of breath and dyspnea on exertion. GI:Denies abdominal pain, nausea or vomiting. : Denies dysuria or hematuria.Musculoskeletal: Negative lower extremity edema. Integumentary: Denies rash.Neurologic: Denies seizures. Psychiatric: Denies depression or anxiety.Hematologic: Denies anemia.Current Outpatient Medications: Apixaban (ELIQUIS) 5 MG TABS tablet, Take 5 mg by mouth 2 (two) times a day,Disp: , Rfl: atenolol (TENORMIN) 50 MG tablet, Take 50 mg by mouth 2 (two) times a day,Disp: , Rfl: cholecalciferol (VITAMIN D3) 25 MCG (1000 UT) capsule, Take 1,000 Units bymouth daily, Disp: , Rfl: digoxin (LANOXIN) 250 MCG tablet, Take 250 mcg by mouth daily , Disp: , Rfl: furosemide (LASIX) 20 MG tablet, Take 20 mg by mouth daily, Disp: , Rfl: simvastatin (ZOCOR) 20 MG tablet, Take 20 mg by mouth nightly, Disp: , Rfl:ALLERGIES: has No Known Drug Allergies.PREVIOUSLY USED ANTI ARRHYTHMIC DRUGS: AtenololPOORLY TOLERATED MEDICATIONS: NoneObjective:PHYSICAL EXAMINATION: Deferred due to Telemedicine encounterSTUDIES REVIEWED: Ablation from 2018. Referral recordsEKG: Deferred due to telemedicine encounter.Assessment/Plan:ASSESSMENT/PLAN: This is a 66 years male With a histo ry of atrial flutter statuspost ablation who presents with recurrence. I had a long discussion with thepatient regarding the anatomical and physiological basis of typical versusatypical atrial flutter. Specifically the role of the right atrial isthmus inthe cintia and maintenance of typical atrial flutter was explained. A ratecontrolling strategy with medications including digoxin, beta blockers andcalcium channel blockers was discussed. The potential risk of developing atachycardia induced cardiomyopathy without good rate control was explained.During our visit, the patient and I had a comprehensive discussion regardingarrhythmia management using principles of shared decision making. This includeda discussion of antiarrhythmic medications including Class 1a , Class 1C, andClass III agents as well as both Class II and IV agents. I reviewed thepotentially life-threatening side effects of these medications, including butnot limited to fatal tachyarrhythmias, bradycardia, hypotension, heart blo ck,pulmonary toxicity, liver toxicity as well as thyroid abnormalities. We alsoreviewed the required monitoring of these medications.EP guided therapy was explained in detail. The risks including but not limitedto vascular injury, perforation, tamponade, CHB, need for emergent open heartsurgery and were all explained. I told the patient that if they hadisthmus dependent flutter then complete closure of the right atrial isthmus withachievement of bidirectional block would result in a 90 to 95% long-term freedomfrom typical atrial flutter. If the patient had a successful ablation, thenanticoagulation could theoretically be discontinued 4 weeks post ablation. Sol explained to the patient that in many cases they will present on the day ofthe procedure in sinus rhythm. If that were to be the case then induction ofatrial flutter would be attempted, although the ability to induce atrial flutteris considered low. Therefore if the patient presents in sinus rhythm and isnotinducible, then em piric isthmus ablation would be performed. After reviewingall the options, the patient clearly understands the issues related to ourdiscussion.At this point the patient would like to proceed with ablation. He will bescheduled on an elective basis. Based on his COPD and weight we will schedulethe patient with anesthesia supportThis document or parts of this document, were dictated using daysoft. A reasonable attempt at proofreading has been made to minimize errors.Please call with any questions or corrections.I have spent 20 minutes with the patient, counseling/coordinating the patient'scare. I discussed the diagnosis of atrial flutter and discussed Managementoption risks and benefitsFollow Up atrial flutter ablation with anesthesiaSignature: Edna Deng MD, [facility]Card[facility] and Arrhythmia ServiceDate: July 07, 2021Time: 10:50 AMThis document or parts of this document, were dictated using DirectRM. A reasonable attempt at proofreading has been made to minimize errors.Please call with any questions or corrections. Name Value Range Interpretation Code Description Data Evelina rce(s) Supporting Document(s) ID Date Data Source [id number] 03/31/2021 02:12:00 PM EDT [facility] ([facility]) Name Value Range Interpretation Code Description Data Evelina rce(s) Supporting Document(s) Thyroid Stimulating Hormone 1.650 ME DENT ([facility]) ID Date Data Source [id number] 03/31/2021 02:12:00 PM EDT [facility] ([facility]) Name Value Range Interpretation Code Description Data Evelina rce(s) Supporting Document(s) Cholesterol 160 [facility] ([facility]) Triglycerides 80 [facility] ([facility]) HDL 41 [facility] ([facility] Chol/HDL Ratio 3.902 [facility] ([facility]) Cholesterol in LDL [Mass/volume] in Serum or Plasma by calculation 10 3 [facility] ([facility]) ID Date Data Source [id number] 03/31/2021 02:12:00 PM EDT [facility] ([facility]) Name Value Range Interpretation Code Description Data Evelina rce(s) Supporting Document(s) Alanine aminotransferase [Enzymatic activity/volume] in Serum or Pl asma 21 [facility] ([facility]) Albumin [Mass/volume] in Serum or Plasma 3.8 [facility] ([facility]) Carbon dioxide, total [Moles/volume] in Serum or Plasma 27 [facility] ([facility]) Chloride [Moles/volume] in Serum or Plasma 110 [facility] ([facility]) Calcium [Mass/volume] in Serum or Plasma 9.5 [facility] ([facility]) Potassium [Moles/volume] in Serum or Plasma 5.9 [facility] ([facility]) Protein [Mass/volume] in Serum or Plasma 7.2 [facility] ([facility]) Alkaline phosphatase [Enzymatic activity/volume] in Serum or Plasma 7 7 [facility] ([facility]) Sodium 142 [facility] ([facility] Aspartate aminotransferase [Enzymatic activity/volume] in Serum or Plasma 14 [facility] ([facility]) Glucose 90 83-110 [facility] ([facility]) Creatinine For GFR 1.54 [facility] ([facility]) Urea nitrogen [Mass/volume] in Serum or Plasma 21 [facility] ([facility]) ID Date Data Source [id number] 03/31/2021 02:12:00 PM EDT [facility] ([facility]) Name Value Range Interpretation Code Description Data Evelina rce(s) Supporting Document(s) White Blood Count 8.2 5.0-10.0 [facility] ([facility]) Platelets 207 172-450 [facility] Red Blood Count 5.85 4.00-5.40 [facility] ([facility]) Hemoglobin 16.5 [facility] ([facility]) Hematocrit 52.6 [facility] ([facility]) ID Date Data Source [id number] 02/10/2021 08:39:00 AM EDT [facility] ([facility]) Name Value Range Interpretation Code Description Data Evelina rce(s) Supporting Document(s) Magnesium Level 2.06 1.6-2.6 [facility] ([facility]) ID Date Data Source [id number] 02/10/2021 08:39:00 AM EDT [facility] ([facility]) Name Value Range Interpretation Code Description Data Evelina rce(s) Supporting Document(s) White Blood Count 8.8 5.0-10.0 [facility] ([facility]) Red Blood Count 5.86 4.70-6.10 [facility] ([facility]) Hematocrit 51.9 42.0-52.0 [facility] ([facility]) Hemoglobin 17.2 14.0-18.0 [facility] ([facility]) Platelets 215 172-450 [facility] ([facility] ID Date Data Source [id number] 02/10/2021 08:39:00 AM EDT [facility] ([facility]) Name Value Range Interpretation Code Description Data Evelina rce(s) Supporting Document(s) Blood Urea Nitrogen 23.1 7-18 [facility] ([facility]) Glucose 111 70-106 [facility] ([facility] Glomerular filtration rate/1.73 sq M.pre dicted [Volume Rate/Area] in Serum or Plasma by Creatinine-based formula (MDRD) 51 [facility] Creatinine 1.4 0.55-1.3 [facility] ([facility]) Sodium 140.1 135-145 [facility] ([facility] Carbon Dioxide 27.0 21-32 [facility] ([facility]) Chloride 106.5 94-110 [facility] Potassium 3.86 3.5-5.5 [facility] Phosphorus 2.9 [facility] ([facility]) Albumin 4.2 2.5-4.9 [facility] ([facility]) Calcium 9.8 8.5-10.1 [facility] ([facility]) ID Date Data Source [id number] 08/12/2020 09:12:00 AM EST [facility] ([facility]) Name Value Range Interpretation Code Description Data Evelina rce(s) Supporting Document(s) Magnesium Level 1.99 [facility] ([facility]) ID Date Data Source [id number] 08/12/2020 09:12:00 AM EST [facility] ([facility]) Name Value Range Interpretation Code Description Data Evelina rce(s) Supporting Document(s) Platelets 33.4 130-400 [facility] ([facility] Red Blood Count 5.64 4.70-6.20 [facility] ([facility]) White Blood Count 7.7 4.3-10.9 [facility] ([facility]) Hematocrit 49.7 39.0-50.0 [facility] ([facility]) Hemoglobin 16.6 13.0-17.0 [facility] ([facility]) ID Date Data Source [id number] 08/12/2020 09:12:00 AM EST [facility] ([facility]) Name Value Range Interpretation Code Description Data Evelina rce(s) Supporting Document(s) Glucose 85 70-100 [facility] ([facility]) Blood Urea Nitrogen 24.2 5-21 [facility] ([facility] Glomerular filtration rate/1.73 sq M.pre dicted [Volume Rate/Area] in Serum or Plasma by Creatinine-based formula (MDRD) 51 [facility]) Creatinine 1.4 0.6-1.5 [facility] ([facility]) Potassium 4.42 3.5-5.3 [facility] Sodium 136.7 136-146 [facility] Chloride 97.6 98-110 [facility] Calcium 9.8 8.4-10.4 [facility] Carbon Dioxide 28.6 20-32 [facility] ([facility]) Phosphorus 4.0 [facility] ([facility]) Albumin 4.2 3.5-4.7 [facility] Procedure Social History Code Duration Value Status Description Data Source(s ) Alcohol intake 07/06/2021 12:00:00 AM EDT Current non-d noah of alcohol (finding) completed Current non-drinker of alcohol (finding) [facility] Tobacco use and exposure 07/06/2021 12:00:00 AM EDT Never used co mpleted Never used [facility] Smoking 07/06/2021 12:00:00 AM EDT Current every day smoker co mpleted Current every day smoker [facility] Smoking 04/08/2021 12:00:00 AM EDT Current Smoker completed Curre nt Smoker eCW1 ([facility]) Smoking 04/08/2021 12:00:00 AM EDT Current Smoker completed Curre nt Smoker eCW1 ([facility]) Smoking 12/28/2020 12:00:00 AM EDT Current Smoker completed Curre nt Smoker eCW1 ([facility]) Smoking 12/28/2020 12:00:00 AM EDT Current Smoker completed Curre nt Smoker eCW1 ([facility]) Smoking 12/28/2020 12:00:00 AM EDT Current Smoker completed Curre nt Smoker eCW1 ([facility]) Smoking 06/25/2020 12:00:00 AM EDT Current Smoker completed Curre nt Smoker eCW1 ([facility]) Smoking 06/25/2020 12:00:00 AM EDT Current Smoker completed Curre nt Smoker eCW1 ([facility]) Vital Signs ID Date Data Source UNK Name Value Range Interpretation Code Description Data Source(s) Body weight 204.00 [lb_av] 204.00 [lb_av] [facility] T ([facility]) Body height 70 [in_i] 70 [in_i] [facility] ([facility]) 5'10" Body mass index (BMI) [Ratio] 29.3 kg/m2 29.3 k g/m2 [facility] ([facility]) Heart rate 118 /min 118 /min [facility] ([facility]) Systolic blood pressure 110 mm[Hg] 110 mm[Hg] M EDENT ([facility]) Diastolic blood pressure 70 mm[Hg] 70 mm[Hg] [facility] ([facility]) Body temperature 98.3 [degF] 98.3 [degF] [facility] Body height 70 [in_i] 70 [in_i] [facility] ([facility]) 5'10" Body weight 208.50 [lb_av] 208.50 [lb_av] MEDEN T ([facility]) Body mass index (BMI) [Ratio] 29.9 kg/m2 29.9 k g/m2 [facility] ([facility]) [place] body weight 166 [lb_av] 166 [lb_av] MEDEN T ([facility]) Body weight 94.576 kg 94.576 kg [facility] ([facility]) Body surface area Derived from formula 2.12 m2 2.12 m2 [facility] ([facility]) Body weight 209.6 [lb_av] 209.6 [lb_av] eCW1 ([facility]) Body height [in_i] eCW1 ([facility]) Body mass index (BMI) [Ratio] 30.51 kg/m2 30.51 kg/m2 eCW1 ([facility]) Heart rate 117 /min 117 /min eCW1 ([facility]) Respiratory rate 18 /min 18 /min eCW1 ([facility]) Body temperature 96.9 [degF] 96.9 [degF] eCW1 ( [facility]) Systolic blood pressure 110 mm[Hg] 110 mm[Hg] e CW1 ([facility]) Diastolic blood pressure 78 mm[Hg] 78 mm[Hg] eCW1 ([facility]) Body weight 213 [lb_av] 213 [lb_av] eCW1 ([facility]) Body height [in_i] eCW1 ([facility]) Body mass index (BMI) [Ratio] 31.00 kg/m2 31.00 kg/m2 eCW1 ([facility]) Heart rate 121 /min 121 /min eCW1 ([facility]) Respiratory rate 18 /min 18 /min eCW1 ([facility]) Body temperature 97.2 [degF] 97.2 [degF] eCW1 ( [facility]) Systolic blood pressure 134 mm[Hg] 134 mm[Hg] e CW1 ([facility]) Diastolic blood pressure 94 mm[Hg] 94 mm[Hg] eCW1 ([facility]) Body weight 209.00 [lb_av] 209.00 [lb_av] MEDEN T ([facility]) Systolic blood pressure--sitting 116 mm[Hg] 116 mm[Hg] [facility] ([facility]) Ra, large cuff Body mass index (BMI) [Ratio] 30.0 kg/m2 30.0 k g/m2 [facility] ([facility]) Body height 70 [in_i] 70 [in_i] [facility] ([facility]) 5'10" Heart rate 94 /min 94 /min [facility] ([facility]) Diastolic blood pressure--sitting 74 mm[Hg] 74 mm[Hg] [facility] ([facility]) Ra, large cuff Body weight 202 [lb_av] 202 [lb_av] eCW1 ([facility]) Body height [in_i] eCW1 ([facility]) Body mass index (BMI) [Ratio] 29.40 kg/m2 29.40 kg/m2 eCW1 ([facility]) Heart rate 125 /min 125 /min eCW1 ([facility]) Respiratory rate 18 /min 18 /min eCW1 ([facility]) Body temperature 96.7 [degF] 96.7 [degF] eCW1 ( [facility]) Systolic blood pressure 132 mm[Hg] 132 mm[Hg] e CW1 ([facility]) Diastolic blood pressure 80 mm[Hg] 80 mm[Hg] eCW1 ([facility]) Patient Treatment Plan of Care Planned Activity Planned Date Details Description Data Source (s) Cholecalciferol 1000 UNT Oral Tablet 06/25/2020 12:00:00 AM EDT eCW1 ([facility]) Cholecalciferol 1000 UNT Oral Tablet 06/25/2020 12:00:00 AM EDT eCW1 ([facility])
[2021-07-14] MEDS ORDERED: PHENYLephrine 500MCG 5ML (100MCG/ML) SYRINGE As Ordered ONE (11:33)
--- NOTE | 2021-07-14 12:04 | ROOR ---
Patient Name: Niels Parker Procedure Date: 07/14/2021 11:28 AM Date of : 1955 Age: 66 Room: [facility] Gender: Male Note Status: Finalized Procedure: Colonoscopy Indications: Screening for colorectal malignant neoplasm Providers: Kvng Carpenter MD Referring MD: Caitlin Lubin DO Requesting Provider: Medicines: Monitored Anesthesia Care Complications: No immediate complications. Estimated blood loss: Minimal. Procedure: Pre-Anesthesia Assessment: - Prior to the procedure, a History and Physical was performed, and patient medications and allergies were reviewed. The patient is competent. The risks and benefits of the procedure and the sedation options and risks were discussed with the patient. All questions were answered and informed consent was obtained. Patient identification and proposed procedure were verified by the physician, the nurse and the anesthesiologist in the endoscopy suite. Mental Status Examination: alert and oriented. Airway Examination: normal oropharyngeal airway and neck mobility. Respiratory Examination: clear to auscultation. CV Examination: normal. Prophylactic Antibiotics: The patient does not require prophylactic antibiotics. Prior Anticoagulants: The patient has taken Eliquis (apixaban), last dose was 3 days prior to procedure. ASA Grade Assessment: III - A patient with severe systemic disease. After reviewing the risks and benefits, the patient was deemed in satisfactory condition to undergo the procedure. The anesthesia plan was to use monitored anesthesia care (MAC). Immediately prior to administration of medications, the patient was re-assessed for adequacy to receive sedatives. The heart rate, respiratory rate, oxygen saturations, blood pressure, adequacy of pulmonary ventilation, and response to care were monitored throughout the procedure. The physical status of the patient was re-assessed after the procedure. The Colonoscope was introduced through the anus and advanced to the cecum, identified by appendiceal orifice and ileocecal valve. The colonoscopy was performed without difficulty. The patient tolerated the procedure well. The quality of the bowel preparation was good. Findings: Hemorrhoids were found on perianal exam. A few small-mouthed diverticula were found in the sigmoid colon, descending colon and transverse colon. A diminutive polyp was found in the transverse colon. The polyp was sessile. The polyp was removed with a cold snare. Resection and retrieval were complete. Estimated blood loss was minimal. Non-bleeding internal hemorrhoids were found during retroflexion. The hemorrhoids were small. Impression: - Hemorrhoids found on perianal exam. - Diverticulosis in the sigmoid colon, in the descending colon and in the transverse colon. - One diminutive polyp in the transverse colon, removed with a cold snare. Resected and retrieved. - Non-bleeding internal hemorrhoids. Recommendation: - Repeat colonoscopy in 5 years for surveillance. Procedure Code(s): --- Professional --- 35299, Colonoscopy, flexible; with removal of tumor(s), polyp(s), or other lesion(s) by snare technique Diagnosis Code(s): --- Professional --- Z12.11, Encounter for screening for malignant neoplasm of colon K64.8, Other hemorrhoids K63.5, Polyp of colon K57.30, Diverticulosis of large intestine without perforation or abscess without bleeding CPT copyright 2019 [employer]. All rights reserved. The codes documented in this report are preliminary and upon senior strategy analyst review may be revised to meet current compliance requirements. Kvng Carpenter MD Kvng Carpenter MD 07/14/2021 12:04:17 PM Electronically signed by Kvng Carpenter MD Number of Addenda: 0 Note Initiated On: 07/14/2021 11:28 AM Estimated Blood Loss: Estimated blood loss was minimal.
[2021-07-14 12:27] VITALS: BP 111/67
== END 2021-07-14 12:50 | disposition home or self-care (01) ==
LOC: M OPP 10:39
PROVIDERS: ATTEND Surgery
DX: Z12.11 Encounter for screening for malignant neoplasm of colon (principal); D12.3 Benign neoplasm of transverse colon; K57.30 Diverticulosis of large intestine without perforation or abscess without bleeding; K64.8 Other hemorrhoids; I51.9 Heart disease, unspecified; N18.30 Chronic kidney disease, stage 3 unspecified; Z79.899 Other long term (current) drug therapy; Z87.891 Personal history of nicotine dependence
CPT/HCPCS: 45385; 88305; J2370

== ENCOUNTER → 2021-08-16 | Outpatient (REF) | payer MEDICARE ==
[~2021-08-16] MED LIST changes: -LIDOCAINE 2% 100MG/5ML SDV (FOR ANES.) As Ordered ONE; -NS 1,000 ML IV ONE; -propofoL 200 MG/20 ML VIAL As Ordered ONE
== END ==
LOC: M LAB REF 17:33
PROVIDERS: ATTEND Internal Medicine Nephrology
DX: E83.42 Hypomagnesemia (principal)

== ENCOUNTER → 2022-02-18 | Outpatient (REF) | payer MEDICARE ==
[2022-02-18 15:21] LABS: CALCIUM LEVEL 9.6 MG/DL (8.8-10.2); CREATININE FOR GFR 1.29 MG/DL (0.70-1.30); POTASSIUM SERUM 4.2 MEQ/L (3.5-5.1)
== END ==
LOC: M SFHCADAM 11:00
PROVIDERS: ATTEND Family Medicine
DX: E87.5 Hyperkalemia (principal)

== ENCOUNTER → 2022-08-22 | Outpatient (REF) | payer MEDICARE ==
[2022-08-22 14:01] LABS: BASO # 0.1 10^3/uL (0.0-0.2); BASO % 0.7 % (0.0-1.0); EOS # 0.1 10^3/uL (0.0-0.5); EOS % 1.7 % (0.0-3.0); HEMATOCRIT 52.1 % (42.0-52.0); LYMPH # 2.4 10^3/uL (1.5-5.0); LYMPH % 28.2 % (24.0-44.0); MEAN CORPUSCULAR HEMOGLOBIN 27.1 pg (27.0-33.0); MEAN CORPUSCULAR HGB CONC 30.7 g/dl (32.0-36.5); MEAN CORPUSCULAR VOLUME 88.3 fl (80.0-96.0); MONO # 0.8 10^3/uL (0.0-0.8); MONO % 9.4 % (2.0-8.0); NEUTROPHILS % 59.6 % (36.0-66.0); PLATELET COUNT, AUTOMATED 194 10^3/uL (150-450); WHITE BLOOD COUNT 8.4 10^3/uL (4.0-10.0)
[2022-08-22 14:28] LABS: ALBUMIN 3.6 G/DL (3.2-5.2); ALKALINE PHOSPHATASE 80 U/L (46-116); ALT/SGPT 10 U/L (7.0-40); AST/SGOT 16 U/L (<34); BILIRUBIN,TOTAL 0.6 MG/DL (0.3-1.2); BLOOD UREA NITROGEN 23 MG/DL (9-23); CALCIUM LEVEL 9.8 MG/DL (8.3-10.6); CARBON DIOXIDE LEVEL 30 MMOL/L (20-31); CHLORIDE LEVEL 103 MMOL/L (98-107); CHOLESTEROL LEVEL 154 MG/DL (<200); CHOLESTEROL RISK RATIO 3.29 (<5); CREATININE FOR GFR 1.19 MG/DL (0.70-1.30); GLOMERULAR FILTRATION RATE > 60.0 (>49); GLUCOSE, FASTING 99 MG/DL (74-106); HDL CHOLESTEROL 46.7 MG/DL (>40); LDL CHOLESTEROL 87.9 MG/DL (<100); NON-HDL-C 107 MG/DL; POTASSIUM SERUM 5.7 MMOL/L (3.5-5.1); SODIUM LEVEL 137 MMOL/L (136-145); TRIGLYCERIDES LEVEL 97 MG/DL (<150)
[2022-08-22 14:30] LABS: FREE T4 1.26 NG/DL (0.89-1.76); THYROID STIMULATING HORMONE 3.674 uIU/ML (0.55-4.78)
== END ==
LOC: M SFHCADAM 08:15
PROVIDERS: ATTEND Family Medicine
DX: Z00.00 Encounter for general adult medical examination without abnormal findings (principal); E78.00 Pure hypercholesterolemia, unspecified

== ENCOUNTER → 2023-02-24 | Outpatient (REF) | payer MEDICARE ==
[2023-02-24 13:11] LABS: CALCIUM LEVEL 9.4 MG/DL (8.3-10.6); CREATININE FOR GFR 1.54 MG/DL (0.70-1.30); GLOMERULAR FILTRATION RATE 47.9 (>49); POTASSIUM SERUM 4.8 MMOL/L (3.5-5.1)
== END ==
LOC: M SFHCADAM 08:32
PROVIDERS: ATTEND Family Medicine
DX: E87.5 Hyperkalemia (principal)

== ENCOUNTER → 2023-09-13 | Outpatient (REF) | payer MEDICARE ==
[2023-09-13 19:26] LABS: TOTAL PROTEIN,RANDOM URINE 44.4 MG/DL (0.0-14.0)
== END ==
LOC: M LAB REF 17:33
PROVIDERS: ATTEND Internal Medicine Nephrology
DX: N18.31 Chronic kidney disease, stage 3a (principal)

== ENCOUNTER → 2023-11-10 | Outpatient (CLI) | payer MEDICARE | LOC: M LAB 09:04 | PROVIDERS: ATTEND Internal Medicine Cardiovascular Disease | DX: I48.3 Typical atrial flutter (principal) ==

== ENCOUNTER → 2024-06-07 | Outpatient (CLI) | payer MEDICARE | LOC: M RAD 10:07 | PROVIDERS: ATTEND Family Medicine | DX: Z12.2 Encounter for screening for malignant neoplasm of respiratory organs (principal); F17.210 Nicotine dependence, cigarettes, uncomplicated; J43.2 Centrilobular emphysema ==

== ENCOUNTER → 2024-07-05 | Outpatient (CLI) | payer MEDICARE, MEDICAID | LOC: M RAD 10:33 | PROVIDERS: ATTEND Surgery Vascular Surgery | DX: I71.40 Abdominal aortic aneurysm, without rupture, unspecified (principal) ==

== ENCOUNTER → 2024-07-05 | Outpatient (CLI) | payer MEDICARE, MEDICAID | LOC: M RAD 10:36 | PROVIDERS: ATTEND Internal Medicine Critical Care Medicine | DX: R91.8 Other nonspecific abnormal finding of lung field (principal); I71.40 Abdominal aortic aneurysm, without rupture, unspecified; K44.9 Diaphragmatic hernia without obstruction or gangrene; J47.9 Bronchiectasis, uncomplicated ==

== ENCOUNTER → 2024-09-26 | Outpatient (CLI) | payer MEDICARE, MEDICAID ==
[~2024-09-26] MED LIST changes: +PROHANCE 279.3MG/ML 15ML VIAL As Ordered ONE
== END ==
LOC: M RAD 15:52
PROVIDERS: ATTEND Family Medicine
DX: K86.9 Disease of pancreas, unspecified (principal)
CPT/HCPCS: 74183; A9576

== ENCOUNTER → 2024-10-07 | Outpatient (CLI) | payer MEDICARE, MEDICAID ==
[~2024-10-07] MED LIST changes: -PROHANCE 279.3MG/ML 15ML VIAL As Ordered ONE
== END ==
LOC: M PLARAD 11:55
PROVIDERS: ATTEND Family Medicine
DX: R91.8 Other nonspecific abnormal finding of lung field (principal)
CPT/HCPCS: 78815; A9552

== ENCOUNTER → 2024-10-15 | Outpatient (CLI) | payer MEDICARE, MEDICAID | LOC: M RAD 10:27 | PROVIDERS: ATTEND Physician Assistant | DX: I71.43 Infrarenal abdominal aortic aneurysm, without rupture (principal); Z48.812 Encounter for surgical aftercare following surgery on the circulatory system; Z95.828 Presence of other vascular implants and grafts ==

== ENCOUNTER → 2024-10-30 | Outpatient (CLI) | payer MEDICARE, MEDICAID | LOC: M RAD 13:55 | PROVIDERS: ATTEND Internal Medicine Critical Care Medicine | DX: R91.8 Other nonspecific abnormal finding of lung field (principal) ==

== ENCOUNTER → 2024-12-11 | Day surgery (SDC) | payer MEDICARE, MEDICAID ==
[~2024-12-11] VITALS: Ht 177.8 cm; Wt 72.1 kg
[~2024-12-11] MED LIST changes: +ALBUTEROL SULFATE 2.5MG/0.5ML INH NEB SOLN INH ONE; +BUDE10.7 IH; +FURO20TA2 PO; +LIDOCAINE 2% 100MG/5ML SDV (FOR ANES.) As Ordered ONE; +LIDOCAINE PRES-FREE 2% 10ML AMP INH ONE; +LR 1,000 ML IV SCH; +MIDAZOLAM INJ 2MG/2ML VIAL As Ordered ONE; +ONDANSETRON 4MG 2ML VIAL As Ordered ONE; +ROCURONIUM BROMIDE 50MG/5ML VIAL As Ordered ONE; +SUGAMMADEX SODIUM 500 MG/5 ML VIAL (BRIDION) As Ordered ONE; +dexmedeTOMIDine (4MCG/ML)200MCG/50ML BTL (PRECEDEX) As Ordered ONE; +fentaNYL 100 MCG/2 ML INJECTION As Ordered ONE; +propofoL 200 MG/20 ML VIAL As Ordered ONE
[2024-12-11 11:24] VITALS: BP 129/82; TEMP 96.9; O2SAT 95
== END | disposition home or self-care (01) ==
LOC: M SDC 09:58
PROVIDERS: ATTEND Internal Medicine Critical Care Medicine
DX: R91.8 Other nonspecific abnormal finding of lung field (principal); Z53.8 Procedure and treatment not carried out for other reasons

== ENCOUNTER 2024-12-20 15:33 | Inpatient (IN) | payer MEDICARE, MEDICAID ==
[~2024-12-20] VITALS: Ht 182.9 cm; Wt 71.0 kg
[2024-12-20] VITALS (8 sets, daily range): BP systolic 111–129; BP diastolic 57–82; TEMP 97.7–98.1; O2SAT 89–97
[~2024-12-20 15:33] MED LIST changes: -ACETAMINOPHEN 325 MG TAB PO PRN; -HOME MED LIST COMPLETE! XX SCH; -LIDOCAINE 1% MDV 20ML VIAL As Ordered ONE; -MIDAZOLAM INJ 2MG/2ML VIAL As Ordered ONE; -NORCO, ANEXSIA 5/325MG TABLET (HYDROcodone/ACETAMINOPHEN) PO PRN; -NS (Normal Saline) 0.9% 1,000 ML IV SCH; -fentaNYL 100 MCG/2 ML INJECTION As Ordered ONE
[2024-12-20] MEDS ORDERED: ACETAMINOPHEN 325 MG TAB PO PRN (17:45)
[2024-12-20] MEDS ORDERED: oxyCODONE 5MG TAB PO PRN (17:45)
[2024-12-20] MEDS ORDERED: HOME MED LIST COMPLETE! XX SCH (18:15)
[2024-12-20] MEDS: ADVAIR HFA 230/21MCG INHALER INH SCH (20:12)
[2024-12-20] MEDS: SIMVASTATIN 20 MG TAB PO SCH (20:46)
[2024-12-20] MEDS: APIXABAN 5 MG TAB (ELIQUIS) PO SCH (20:46)
[2024-12-20] MEDS: atenoloL 50 MG TAB PO SCH (20:47)
[2024-12-21] VITALS (11 sets, daily range): BP systolic 109–117; BP diastolic 61–67; TEMP 97.9–98.4; O2SAT 90–97
[2024-12-21 07:56] LABS: BASO % 0.4 % (0.0-1.0); EOS # 0.1 10^3/uL (0.0-0.5); EOS % 0.5 % (0.0-3.0); HEMATOCRIT 45.2 % (42.0-52.0); HEMOGLOBIN 14.5 g/dl (13.5-17.5); LYMPH # 2.9 10^3/uL (1.5-5.0); MEAN CORPUSCULAR HEMOGLOBIN 26.8 pg (27.0-33.0); MEAN CORPUSCULAR HGB CONC 32.1 g/dl (32.0-36.5); MEAN CORPUSCULAR VOLUME 83.5 fl (80.0-96.0); MONO # 0.9 10^3/uL (0.0-0.8); MONO % 8.9 % (2.0-8.0); NEUTROPHILS # 6.3 10^3/uL (1.5-8.5); NEUTROPHILS % 61.6 % (36.0-66.0); PLATELET COUNT, AUTOMATED 317 10^3/uL (150-450); RED BLOOD COUNT 5.41 10^6/uL (4.30-6.10); WHITE BLOOD COUNT 10.3 10^3/uL (4.0-10.0)
[2024-12-21] MEDS: DIGOXIN 0.25 MG TAB PO SCH (08:11)
[2024-12-21] MEDS: FUROSEMIDE 20 MG TAB PO SCH (08:12)
[2024-12-21 08:17] LABS: CALCIUM LEVEL 9.3 MG/DL (8.3-10.6); CREATININE FOR GFR 1.16 MG/DL (0.70-1.30); GLOMERULAR FILTRATION RATE 67.8 (>42); MAGNESIUM LEVEL 2.2 MG/DL (1.8-2.4); POTASSIUM SERUM 5.4 MMOL/L (3.5-5.1)
[2024-12-21] MEDS: ALBUTEROL SULFATE 2.5MG/0.5ML INH CONCENTRATE NEB SOLN NEB SCH (10:56)
[2024-12-21] MEDS: PATIROMER SORBITEX CALCIUM 8.4 GM POWDER PACKET (VELTASSA) PO ONE (11:23)
[2024-12-21] MEDS: CALCIUM GLUCONATE 1,000 MG in DEXTROSE 5% (D5W) MINI-BAG PLU 100 ML IV ONE (11:23)
[2024-12-21] MEDS: FUROSEMIDE 40MG/4ML VIAL IV SCH (11:23)
[2024-12-21 13:54] LABS: CALCIUM LEVEL 9.3 MG/DL (8.3-10.6); CREATININE FOR GFR 1.19 MG/DL (0.70-1.30); GLOMERULAR FILTRATION RATE 65.7 (>42); POTASSIUM SERUM 3.8 MMOL/L (3.5-5.1)
== END 2024-12-21 15:17 | disposition home or self-care (01) | DRG 200 ==
LOC: OBSVTOIN 15:33 → M PCU 15:33
PROVIDERS: ADMIT Internal Medicine; ATTEND Internal Medicine
PROC: 0BBG3ZX Excision of Left Upper Lung Lobe, Percutaneous Approach, Diagnostic (ICD-10-PCS; principal; 2024-12-20)
PROC: 0W9B30Z Drainage of Left Pleural Cavity with Drainage Device, Percutaneous Approach (ICD-10-PCS; 2024-12-20)
DX: J95.811 Postprocedural pneumothorax (principal); J96.11 Chronic respiratory failure with hypoxia; I50.32 Chronic diastolic (congestive) heart failure; I48.92 Unspecified atrial flutter; N17.9 Acute kidney failure, unspecified; C34.12 Malignant neoplasm of upper lobe, left bronchus or lung; Y84.8 Other medical procedures as the cause of abnormal reaction of the patient, or of later complication, without mention of misadventure at the time of the procedure; R91.1 Solitary pulmonary nodule; I11.0 Hypertensive heart disease with heart failure; J95.812 Postprocedural air leak; I73.9 Peripheral vascular disease, unspecified; J44.9 Chronic obstructive pulmonary disease, unspecified; I27.81 Cor pulmonale (chronic); K76.1 Chronic passive congestion of liver; J43.9 Emphysema, unspecified; E87.5 Hyperkalemia; F17.200 Nicotine dependence, unspecified, uncomplicated; K86.89 Other specified diseases of pancreas; Z79.01 Long term (current) use of anticoagulants; Z79.899 Other long term (current) drug therapy; Z91.018 Allergy to other foods

== ENCOUNTER → 2024-12-20 | Outpatient (CLI) | payer MEDICARE, MEDICAID ==
[~2024-12-20] MED LIST changes: +ACETAMINOPHEN 325 MG TAB PO PRN; -ALBUTEROL SULFATE 2.5MG/0.5ML INH NEB SOLN INH ONE; -BUDE10.7 IH; +BUDE10.7 INH; +HOME MED LIST COMPLETE! XX SCH; +LIDOCAINE 1% MDV 20ML VIAL As Ordered ONE; -LIDOCAINE 2% 100MG/5ML SDV (FOR ANES.) As Ordered ONE; -LIDOCAINE PRES-FREE 2% 10ML AMP INH ONE; -LR 1,000 ML IV SCH; +NORCO, ANEXSIA 5/325MG TABLET (HYDROcodone/ACETAMINOPHEN) PO PRN; +NS (Normal Saline) 0.9% 1,000 ML IV SCH; -ONDANSETRON 4MG 2ML VIAL As Ordered ONE; -ROCURONIUM BROMIDE 50MG/5ML VIAL As Ordered ONE; -SUGAMMADEX SODIUM 500 MG/5 ML VIAL (BRIDION) As Ordered ONE; -dexmedeTOMIDine (4MCG/ML)200MCG/50ML BTL (PRECEDEX) As Ordered ONE; -propofoL 200 MG/20 ML VIAL As Ordered ONE
[2024-12-20 12:20] VITALS: TEMP 97.6
[2024-12-20] MEDS: fentaNYL 100 MCG/2 ML INJECTION IV PRN (13:22)
[2024-12-20] MEDS: MIDAZOLAM INJ 2MG/2ML VIAL IV PRN (13:22)
[2024-12-20 17:15] VITALS: BP 132/55; O2SAT 94
== END ==
LOC: M IRPRO 12:11
PROVIDERS: ATTEND Internal Medicine Critical Care Medicine
DX: R91.8 Other nonspecific abnormal finding of lung field (principal)

== ENCOUNTER → 2024-12-24 | Outpatient (CLI) | payer MEDICARE, MEDICAID ==
[2024-12-24 10:13] LABS: CALCIUM LEVEL 9.4 MG/DL (8.3-10.6); CREATININE FOR GFR 0.98 MG/DL (0.70-1.30); POTASSIUM SERUM 4.1 MMOL/L (3.5-5.1)
== END ==
LOC: M RAD 09:12
PROVIDERS: ATTEND Internal Medicine
DX: E87.5 Hyperkalemia (principal)

== ENCOUNTER → 2025-01-13 | Outpatient (CLI) | payer MEDICARE, MEDICAID | LOC: M RAD 09:08 | PROVIDERS: ATTEND Physician Assistant | DX: I71.40 Abdominal aortic aneurysm, without rupture, unspecified (principal) ==

== ENCOUNTER → 2025-01-24 | Outpatient (CLI) | payer MEDICARE, MEDICAID | LOC: M RAD 11:38 | PROVIDERS: ATTEND Internal Medicine Critical Care Medicine | DX: J44.9 Chronic obstructive pulmonary disease, unspecified (principal) ==

== ENCOUNTER → 2025-05-16 | Outpatient (CLI) | payer MEDICARE, MEDICAID ==
[~2025-05-16] MED LIST changes: +ISOVUE-370 76% 100 ML VIAL As Ordered ONE
== END ==
LOC: M RAD 09:08
PROVIDERS: ATTEND General Practice
DX: C34.12 Malignant neoplasm of upper lobe, left bronchus or lung (principal); J43.9 Emphysema, unspecified; Z93.3 Colostomy status
CPT/HCPCS: 71260; Q9967

== ENCOUNTER → 2025-05-23 | Outpatient (CLI) | payer MEDICARE, MEDICAID ==
[~2025-05-23] MED LIST changes: -CAPT62TA PO; -ISOVUE-370 76% 100 ML VIAL As Ordered ONE; +[UNRECOGNIZED DRUG - CODE] PO
== END ==
LOC: M ONCR 11:12
PROVIDERS: ATTEND General Practice
DX: D37.8 Neoplasm of uncertain behavior of other specified digestive organs (principal); C34.12 Malignant neoplasm of upper lobe, left bronchus or lung; F17.210 Nicotine dependence, cigarettes, uncomplicated; Z91.014 Allergy to mammalian meats; Z79.01 Long term (current) use of anticoagulants; Z79.899 Other long term (current) drug therapy; Z92.3 Personal history of irradiation

== ENCOUNTER → 2025-07-07 | Outpatient (CLI) | payer MEDICARE | LOC: M RAD 14:56 | PROVIDERS: ATTEND Nurse Practitioner Family | DX: E78.2 Mixed hyperlipidemia (principal); I65.23 Occlusion and stenosis of bilateral carotid arteries ==